=== PATIENT | female | born 1960 | race Caucasian/White ===

== ENCOUNTER 2017-10-24 10:01 | Inpatient (IN) | payer OTHER, SELFPAY ==
[2017-10-13 09:58] VITALS: BP 141/88; PULSE 63; RESP 16; TEMP 37; O2SAT 96; BMI 33.5
--- NOTE | 2017-10-13 10:24 | SDCEKG_ITS ---
Test Reason : Blood Pressure : / mmHG Vent. Rate : 062 BPM Atrial Rate : 062 BPM P-R Int : 196 ms QRS Dur : 082 ms QT Int : 406 ms P-R-T Axes : 033 013 044 degrees QTc Int : 412 ms Normal sinus rhythm Normal ECG Confirmed by RICKIE OCAMPO, RAEANN ([id number]), editorial project manager RENATO ZIEGLER ([id number]) on 10/17/2017 1:50:40 PM Referred By: Elvin Wilson Confirmed By:RAEANN DAMIAN MD
[2017-10-13 10:51] LABS: Hematocrit 39.7 % (37-47); Hemoglobin 13.1 g/dl (12.0-15.0); Mean Corpuscular Hgb 28.5 pg (27.0-32.0); Mean Corpuscular Volume 86.3 fL (81-99); Platelet Count 257 K/mm3 (150-450); RBC Distribution Width CV 13.7 % (11.6-14.6); RBC Distribution Width SD 42.6 fl (35.1-43.9); White Blood Count 5.3 K/mm3 (4.4-11.0)
[2017-10-13 10:53] LABS: Scan Indicated on CBC? Y/N NO
[2017-10-13 11:02] LABS: Anion Gap 8 (5-15); BUN 14 mg/dL (7-18); BUN/Creat Ratio 20.2 RATIO (10-20); Calcium,Total 8.9 mg/dL (8.5-10.1); Chloride 105 mmol/L (98-107); Creatinine, Serum 0.69 mg/dL (0.55-1.02); EST Glomerular Filtration Rate 93 mL/min (>60); Est Glom Filt Rate - Afr Amer 113 mL/min (>60); Estimated Creatinine Clearance 86.24 ml/min; Glucose 89 mg/dL (74-106); Potassium 4.1 mmol/L (3.5-5.1); Sodium Level 140 mmol/L (136-145)
--- NOTE | 2017-10-13 12:41 | PCM.HP.BLA ---
History and Physical DATE OF SERVICE: 10/24/2017 SCHEDULED PROCEDURE: Right total hip arthroplasty HISTORY OF PRESENT ILLNESS: This is a 57-year-old female who is been having ongoing pain in the right hip since 2011. Heart, and sore. She has a difficult time playing with her grandchildren getting up and down on the floor. Patient states she has difficult times with activities of daily living such as getting in and out of the shower or bathtub, getting dressed, doing housework, and shopping. Patient has tripped and stumbled down stairs she feels unsafe walking on unlevel ground going up and down stairs and carrying any objects. Patient states she continues to limp and has been requiring the use of crutches or a cane. She has tried conservative measures consisting of rest ice patient has tried physical therapy and home exercises with not much relief. She has been on medication consisting of etodolac for the past couple years with minimal relief. She denies previous surgery to the right hip. Heron Levin, the patient would like to proceed with a right total hip arthroplasty. Patient currently denies any chest pain, shortness of breath, fevers chills, or recent infections. REVIEW OF SYSTEMS: ROS: Const: Denies anorexia, change in appetite, fever, difficulty sleeping and weight change. CV: Denies chest pain, heart murmur, irregular heartbeat and peripheral vascular disease. Resp: Reports SOB WHEN EXERCISING, but denies asthma, cough, pneumonia, sleep apnea, tuberculosis and wheezing GI: Reports constipation and heartburn, but denies diarrhea, nausea, rectal itching, bloody stools and vomiting. : Genital:more than 3 mo. without period Reports incontinence. Musculo: Reports pain, trouble walking and weakness, but denies leg swelling. Skin: Denies Raynaud's, history of shingles and tattoo. Neuro: Reports numbness/tingling but denies ambulatory dysfunction, dizziness and tremor. Psych: Reports depression and stress, but denies anxiety, insomnia and mental illness. Abdirizak/Lymph: Reports bleeding/bruising tendency, but denies anemia and past transfusion. Reviewed and updated. PAST MEDICAL HISTORY: Advance Care Plan: No Advance Directives Effective Date: 07/14/2017 PMH: Medical Problems: Osteoarthritis, Psoriasis, Rosacea, TMJ, Hemrroids Fatty Liver Disease - NON-ALCOHOLIC Accidents: Sled Riding - (1990) LANDED ON TAILBONE Landed On Tailbone When Exercise Ball Busted - (2010) Surgical Hx: Tubal Ligation - (1991) Tubal Reversal - (1997) Hemrroid Removal - (2009) Hemrroid Fustula Surgery - (2010) Anesthesia Complications: Nausea, Vomiting Assistive Devices: Glasses, Mouth Piece For TMJ When Sleeping Reviewed and updated. 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 Personal Habits: Smoking: Patient is a former smoker.Cigarette Use: Former.Alcohol: Has consumed alcohol in the past.Drug Use: Denies Use.Enjoy Exercising: Exercises 1-3 X/Week. Reviewed and updated. VITALS: Ht: 66 Wt: 208lb Wt k.349 BMI: 33.6 BP: 112/78 Pulse: 76 Resp: 14 T: 98.3 T: 36.8C ALLERGIES: No Known Drug Allergy MEDICATIONS: Etodolac 400 mg 1 by mouth twice a day, Vitamin D3 5000 Unit 1 cap PO daily PRE-OP EXAM: General appearance:NORMAL Other: Eyes: Conjunctivae and lids: NORMAL Pupils: ERR Ears, Nose, Mouth, and Throat: NORMAL Other: Inspection of lips, teeth and gums: NORMAL Other: Neck: Examination of neck: no masses noted. Respiratory: Assessment of respiratory effort: NORMAL Other: Ausculation of lungs: clear to ausculation no wheeses, ronchi or rales. Cardiovascular: Ausculation of heart: regular rate and rhythem, no mummurs, gallops or rubs. Exam of carotid arteries: NORMAL Other: Gastrointestinal: Exam of abdomen: soft, nontender, nondistended bowel sounds present. Lymphatic: Palpation of nodes in neck: NORMAL Other: Palpation of nodes in Axillae: NORMAL Other: Neurological: see below Psychiatric: Orientation to time, place and person: NORMAL Other: Mood and affect: NORMAL Other: PHYSICAL EXAMINATION: Patient does walk with an antalgic gait. Right hip is cool to touch without erythema. Patient has increased pain with any motion of the right hip. She has limited motion with 0? of internal rotation and 5-10? of external rotation right hip. Sensations intact to light touch neurovascularly intact IMAGING STUDIES: 1. X-rays were obtained at [facility] on July 14, 2017 which shows mild progression of significant osteoarthritis of her hips. There is increased marginal osteophytes globally around the acetabulum. Joint space is narrowed to 1 mm to 1-1/2 mm. On the frog-leg lateral there appears to be possible crack in the osteophyte posteriorly. IMPRESSION: 1. Progressive right hip osteoarthritis 2. Nonalcoholic fatty liver disease 3. Psoriasis 4. Rosacea 5. Temporal mandibular joint disorder PLAN: Dr. Hayes did discuss and review with the patient all treatment options including surgical versus nonsurgical. Patient wishes to proceed with above-stated procedure. Potential risks, benefits, and complications of this procedure were discussed in detail including but not limited to , infection, nerve and blood vessel damage, persistent pain, numbness, tingling, paresthesias, blood clot, pulmonary embolism, and requirement for further surgery. The patient expressed full understanding has no further questions for the doctor. Patient does agree to proceed with the above-stated procedure and has signed the surgery consent form. Patient will undergo preoperative lab work and EKG. ___ I have re-examined the patient. There are no clinical changes since date of exam. ___ See progress notes for changes. ___ Dictated on admission Date: Time: Signature:
[2017-10-24] VITALS (13 sets, daily range): BP systolic 112–149; BP diastolic 65–91; PULSE 55–82; RESP 16–18; TEMP 35.6–37.3; O2SAT 92–100; BMI 33.5
[2017-10-24] MEDS: Acetaminophen 500 MG Tablet 1000 MG PO ×3 (10:38→22:24)
[2017-10-24] MEDS: oxyCODONE HCl Cr 10 MG Tablet PO (10:38)
[2017-10-24] MEDS: Celecoxib 200 MG Capsule 400 MG PO (10:38)
[2017-10-24] MEDS: Cefazolin 2 GM in 0.9% Normal Saline 100 ML IV (11:41)
--- NOTE | 2017-10-24 11:53 | RAD_ITS ---
STUDY: X-RAY - PELVIS AND RIGHT HIP REASON FOR EXAM: Postoperative exam of right hip. TECHNIQUE: Radiological exam, hip, unilateral, with pelvis when performed; 2 or 3 views. COMPARISON: None. FINDINGS: There is gas in the soft tissues adjacent to the right hip arthroplasty from recent surgery. There is mild enthesopathy of the bilateral iliac wings. Normal bilateral superior and inferior pubic rami. Normal pubic symphysis. Normal bilateral ischial tuberosities. There is a right hip arthroplasty without evidence of complication. RAD/Hip Min 2 Views (Portable) IMPRESSION: Right hip arthroplasty without evidence of complication. Electronically Signed: Eamon Hunt MD at 14:45 EST Tel , Service support ,
[2017-10-24] MEDS: oxyCODONE 5 MG Tablet PO (16:23)
[2017-10-24] MEDS: Lactated Ringers 1,000 ML 125 ML IV (17:37)
[2017-10-24] MEDS: Aspirin 325 MG Tablet PO (17:37)
[2017-10-24] MEDS: Cefazolin 1 GM/50 ML BAG IV (19:22)
[2017-10-24] MEDS: Etodolac 200 MG Capsule 400 MG PO (22:24)
[2017-10-24] MEDS: Senna/Docusate Sodium 1 Tablet 2 TABLET PO (22:24)
[2017-10-25] MEDS: 0.9% NaCl Peripheral Flush Adult/Peds IV (01:59)
[2017-10-25 02:00] VITALS: BP 127/54; PULSE 73; RESP 18; TEMP 36.6; O2SAT 98
[2017-10-25] MEDS: Ondansetron 4 MG/2 ML Vial IV (02:03)
[2017-10-25] MEDS: Cefazolin 1 GM/50 ML BAG IV (04:16)
[2017-10-25] MEDS: Acetaminophen 500 MG Tablet 1000 MG PO ×3 (06:05→22:15)
[2017-10-25 06:24] LABS: Hematocrit 30.7 % (37-47); Hemoglobin 9.8 g/dl (12.0-15.0); Mean Corp Hgb Conc 31.9 g/gl (32-36); Mean Corpuscular Hgb 27.7 pg (27.0-32.0); Mean Corpuscular Volume 86.7 fL (81-99); Mean Platelet Vol. 10.9 fl (6.2-12.0); Platelet Count 201 K/mm3 (150-450); RBC Distribution Width CV 13.9 % (11.6-14.6); RBC Distribution Width SD 44.7 fl (35.1-43.9); Red Blood Count 3.54 M/mm3 (4.2-5.4); White Blood Count 7.9 K/mm3 (4.4-11.0)
[2017-10-25 06:52] LABS: Scan Indicated on CBC? Y/N NO
[2017-10-25 06:53] LABS: Anion Gap 8 (5-15); BUN 9 mg/dL (7-18); BUN/Creat Ratio 14.2 RATIO (10-20); Calcium,Total 8.4 mg/dL (8.5-10.1); Chloride 101 mmol/L (98-107); Creatinine, Serum 0.64 mg/dL (0.55-1.02); EST Glomerular Filtration Rate 103 mL/min (>60); Est Glom Filt Rate - Afr Amer 125 mL/min (>60); Estimated Creatinine Clearance 92.98 ml/min; Glucose 113 mg/dL (74-106); Potassium 3.9 mmol/L (3.5-5.1); Sodium Level 135 mmol/L (136-145)
--- NOTE | 2017-10-25 07:37 | PCM.PN.ORT ---
Subjective: Patient is resting comfortably in bed during exam. No adverse events overnight. She has had some bleeding onto the postoperative dressing. It has not required any changing. The pain in the right hip is very well controlled. She currently denies chest pain, shortness of breath, dizziness, calf pain. She feels that she is very nervous going home later today. She still is going to consider it. Objective: Patient is alert and oriented ?3. No acute distress at rest. Breathing easily without respiratory distress. Inspection of right hip reveals a dressing that is 1 moderate area of bloody drainage touching one border of the dressing. negative Stacy bilaterally. Without signs of DVT. Sensation intact light touch bilateral lower extremities. Patient able to actively plantar and dorsiflex bilateral feet against resistance. Pedal pulses present +2 bilaterally. Neurovascularly intact. - Physical Exam Vital Signs Temp Pulse Resp BP Pulse Ox 98 F 73 18 127/54 H 98 10/25/17 02:00 10/25/17 02:00 10/25/17 02:00 10/25/17 02:00 10/25/17 02:00 Oxygen Delivery Method Room Air Weight: 94.347 kg Body Mass Index (BMI) 33.5 Intake and Output for Last 24 Hours 10/23/17 10/24/17 10/25/17 23:59 23:59 23:59 Intake Total 3167 / 3167 1848 / 1848 Output Total 400 / 400 900 / 900 Balance 2767 / 2767 948 / 948 Laboratory Tests Past 24 Hrs 10/25/17 10/25/17 05:42 05:42 WBC 7.9 RBC 3.54 L Hgb 9.8 L Hct 30.7 L MCV 86.7 MCH 27.7 MCHC 31.9 L RDW 13.9 RDW Differential 44.7 H Plt Count 201 MPV 10.9 Sodium 135 L Potassium 3.9 Chloride 101 Carbon Dioxide 26.0 Anion Gap 8 BUN 9 Creatinine 0.64 Estim Creat Clear Calc 92.98 Est GFR (MDRD) Af Amer 125 Est GFR (MDRD) Non-Af 103 BUN/Creatinine Ratio 14.2 Glucose 113 H Calcium 8.4 L Assessment/Plan 1. Status post right ABILIO; postop day #1 2. Continue OxyIR and Tylenol, and MS Contin for pain control 3. DVT prophylaxis; bilateral teds, SCDs and begin aspirin therapy 4. Begin PT/OT; weightbearing as tolerated right lower extremity with a walker and hip dislocation precautions. 5. Drop in hemoglobin/hematocrit, asymptomatic; without indication for transfusion continue to monitor 6. Encourage incentive spirometry 7. Continue discharge planning with case management. The plan is for discharge to home. We will see if she is having adequate pain control and moving well with physical therapy. May consider a discharge to home later today
[2017-10-25] MEDS: Aspirin 325 MG Tablet PO ×2 (08:22→17:30)
[2017-10-25] MEDS: Etodolac 200 MG Capsule 400 MG PO ×2 (08:23→17:30)
[2017-10-25] MEDS: oxyCODONE 5 MG Tablet PO ×2 (08:25→17:32)
[2017-10-25 08:30] VITALS: BP 135/75; PULSE 70; RESP 16; TEMP 37.3; O2SAT 93
[2017-10-25] MEDS: Famotidine 20 MG Tablet PO (09:40)
[2017-10-25] MEDS: Senna/Docusate Sodium 1 Tablet 2 TABLET PO ×2 (09:43→22:16)
--- NOTE | 2017-10-25 09:55 | PCM.DC.THR ---
Discharge Diet: No Restrictions Discharge Activity: May Not Drive - while taking narcotic pain medications., May not drive while taking narcotic pain medications., Use Walker May shower in (days): 2 - only if incision is dry and without drainage. Do NOT soak/submerge in tub/pool/durham/stream/hot tub. Ok to shower over mepilex dressing. Ice area for (Minutes): 20 - every hour as needed Weight Bearing Status: Weight bearing as tolerated Elevate: Operative Extremity Additional Activity Instructions:: Wear elastic stockings for 2 weeks. DO NOT use alcohol with narcotic pain medication. DO NOT make important decisions while taking narcotic medication. If you have problems with taking your medication (rash, itching, nausea, etc.) call the office at once. SEE POST OPERATIVE PINK SHEET Call your doctor if your incision/area has: Continuous Slow Oozing, Sudden Increased Bleeding, Increased Pain/ Swelling, Increased Redness, Foul Smelling Discharge, Swelling at the incision site Call your doctor if you observe: Fever of 101 or Higher, Coldness, Increased Pain, Numbness or Tingling, Change in Color, Chest pain, Calf discomfort, Uncontrolled pain Remove Dressing in (days):: 5 - OK TO REMOVE DRESSING 5 DAYS AFTER SURGERY Cleanse incision/area with: Soap & Water Additional Dressing/Incision Instructions:: SEE POST OPERATIVE PINK SHEET Allergies/Adverse Reactions: Allergies No Known Allergies Allergy (Verified 10/13/17 09:54) Medications to take at Discharge Cholecalciferol (Vitamin D3) [Vitamin D3] 5,000 unit PO DAILY 10/13/17 Acetaminophen [Tylenol] 1,000 mg PO Q8 #60 tab 10/25/17 Aspirin 325 mg PO BIDCM #30 tab 10/25/17 MorphINE [Ms Contin] 15 mg PO BID 7 Days #14 tablet 10/25/17 Oxycodone [Oxyir] 5 - 10 mg PO Q4H PRN PRN 7 Days #56 tablet 10/25/17 Senna/Docusate Sodium [Senokot-S] 2 tab PO BID #30 tab 10/25/17 The following prescriptions were given: Oxycodone [Oxyir] 5 - 10 mg PO Q4H PRN PRN 7 Days #56 tablet PRN Reason: Mod-Severe Pain (4-06/13) Acetaminophen [Tylenol] 1,000 mg PO Q8 #60 tab Aspirin 325 mg PO BIDCM #30 tab MorphINE [Ms Contin] 15 mg PO BID 7 Days #14 tablet Senna/Docusate Sodium [Senokot-S] 2 tab PO BID #30 tab Primary Care Physician: Elvin Wilson DO [Primary Care Provider] -
--- NOTE | 2017-10-25 11:12 | CASEMGMT ---
CORBY ZAVALA Face to Face with patient for initial transition planning/care coordination assessment. CORBY ZAVALA introduced self and role at [facility]. Patient sitting in chair, alert and oriented. Patient willing to participate in assessment and is able to answer all questions appropriately. Care providers, pharmacy, and demographics verified. See link attached. Patient wishes to discharge to mother's home and is setup with [facility] for outpatient therapy. Patient states that she need a walker since her mother's is inappropriate height. Patient stated she had no preference for [employer]. CORBY ZAVALA requested script for FWW. Pt states she has no further needs or concerns at this time. CM to follow for discharge planning needs that may arise. Disposition Plan: Patient to discharge home with outpatient therapy, family support, and follow-up plans in place.
[2017-10-25 14:30] VITALS: BP 143/87; PULSE 78; RESP 18; TEMP 36.7; O2SAT 98
--- NOTE | 2017-10-25 14:55 | NURSING ---
TALKED WITH ROSEANNA Myles ON THE PHONE AND PT WAS TO BE D/C BUT STILL FEEL TOO UNSTEADY TO GO HOME - OK FOR PT TO STAY ANOTHER NIGHT- PT INFORMED
[2017-10-25 20:45] VITALS: BP 135/69; PULSE 80; RESP 16; TEMP 37; O2SAT 94
[2017-10-26 02:43] VITALS: BP 122/68; PULSE 85; RESP 16; TEMP 37.2; O2SAT 98
[2017-10-26] MEDS: Acetaminophen 500 MG Tablet 1000 MG PO ×2 (06:04→13:09)
[2017-10-26 06:42] LABS: Hematocrit 30.2 % (37-47); Hemoglobin 9.7 g/dl (12.0-15.0); Mean Corp Hgb Conc 32.1 g/gl (32-36); Mean Corpuscular Hgb 28.2 pg (27.0-32.0); Mean Corpuscular Volume 87.8 fL (81-99); Mean Platelet Vol. 10.5 fl (6.2-12.0); Platelet Count 174 K/mm3 (150-450); RBC Distribution Width CV 14.3 % (11.6-14.6); RBC Distribution Width SD 45.8 fl (35.1-43.9); Red Blood Count 3.44 M/mm3 (4.2-5.4); White Blood Count 7.3 K/mm3 (4.4-11.0)
[2017-10-26 07:01] LABS: Scan Indicated on CBC? Y/N NO
[2017-10-26 07:50] VITALS: BP 129/59; PULSE 74; RESP 16; TEMP 36.9; O2SAT 94
[2017-10-26] MEDS: Famotidine 20 MG Tablet PO (07:50)
[2017-10-26] MEDS: Aspirin 325 MG Tablet PO (07:50)
[2017-10-26] MEDS: Etodolac 200 MG Capsule 400 MG PO (07:50)
[2017-10-26] MEDS: Senna/Docusate Sodium 1 Tablet 2 TABLET PO (07:50)
[2017-10-26] MEDS: oxyCODONE 5 MG Tablet PO (07:52)
[2017-10-26 14:40] VITALS: BP 129/72; PULSE 86; RESP 18; TEMP 37.2; O2SAT 98
--- NOTE | 2017-10-26 15:07 | PCM.PN.ORT ---
Subjective: Patient is resting comfortably in bed during exam. No adverse events overnight. Pain in the right hip has been very well controlled. She did not feel ready for discharge to home yesterday because she will be staying with her elderly mother. Her concern was for falling. She did well with physical therapy today. She feels much better about being discharged to home today. She denies chest pain, shortness of breath, dizziness, calf pain. Doing well overall. Objective: Patient is alert and oriented ?3. No acute distress at rest. Breathing easily without respiratory distress. Inspection of right hip reveals a new 8 inch Mepilex dressing. It is without any bloody drainage. Negative Stacy bilaterally. Without signs of DVT. Sensation intact light touch bilateral lower extremities. Patient able to actively plantar and dorsiflex bilateral feet against resistance. Pedal pulses present and equal bilaterally. Neurovascularly intact. - Physical Exam Vital Signs Temp Pulse Resp BP Pulse Ox 98.5 F 74 16 129/59 H 94 10/26/17 07:50 10/26/17 07:50 10/26/17 07:50 10/26/17 07:50 10/26/17 07:50 Oxygen Delivery Method Room Air Weight: 94.3 kg Body Mass Index (BMI) 33.5 Intake and Output for Last 24 Hours 10/24/17 10/25/17 10/26/17 23:59 23:59 23:59 Intake Total 3167 / 3167 3148 / 3148 1400 / 1400 Output Total 400 / 400 1100 / 1100 Balance 2767 / 2767 2048 / 2048 1400 / 1400 Laboratory Tests Past 24 Hrs 10/26/17 05:36 WBC 7.3 RBC 3.44 L Hgb 9.7 L Hct 30.2 L MCV 87.8 MCH 28.2 MCHC 32.1 RDW 14.3 RDW Differential 45.8 H Plt Count 174 MPV 10.5 Assessment/Plan 1. Status post right ABILIO; postop day #2 2. Continue OxyIR and Tylenol, and MS Contin for pain control 3. DVT prophylaxis; bilateral teds, SCDs and a new aspirin therapy 4. 10 units PT/OT; weightbearing as tolerated right lower extremity with a walker and hip dislocation precautions. 5. Drop in hemoglobin/hematocrit, asymptomatic; without indication for transfusion continue to monitor 6. Encourage incentive spirometry 7. Orthopedically stable. Okay for discharge to home today. Case and findings were discussed and reviewed with Dr. Heron Levin. A new 10 inch occlusive Mepilex dressing was applied to the surgical site.
== END 2017-10-26 15:35 | disposition home or self-care (01) | DRG 470 ==
LOC: ACINP 10:02 → MS3 12:30
PROVIDERS: Admitting Provider Orthopaedic Surgery; Family Provider Student in an Organized Health Care Education/Training Program; PCP Student in an Organized Health Care Education/Training Program; Visit Provider Orthopaedic Surgery
PROC: 0SR90JZ Replacement of Right Hip Joint with Synthetic Substitute, Open Approach (ICD-10-PCS; CPT 27130; principal; 2017-10-24 12:40)
DX: M16.11 Unilateral primary osteoarthritis, right hip (principal); R71.0 Precipitous drop in hematocrit; K76.0 Fatty (change of) liver, not elsewhere classified; Z87.891 Personal history of nicotine dependence; L40.9 Psoriasis, unspecified; L71.9 Rosacea, unspecified; M26.609 Unspecified temporomandibular joint disorder, unspecified side
CPT/HCPCS: 36415; 73502; 80048; 85027; 87081; 93005; 97110; 97116; 97162; 97166; 97530; 97535; J7120; A4216; J2405

== ENCOUNTER → 2018-12-04 07:51 | Outpatient (CLI) | payer OTHER, SELFPAY ==
[2017-10-24 15:58] VITALS: BMI 33.5
--- NOTE | 2018-12-04 10:26 | NEURO ---
NCS and/or EMG Patient Report Ordering Doctor: Marguerite Bryan DATE OF SERVICE: 12/04/18 Lateral lower extremity sensory and motor nerve conduction study as well as bilateral lower extremity EMG performed on this 58-year-old female who has had paresthesias and numbness in her feet for several years. Her only health history is nonalcoholic steatohepatitis. Is not diabetic and does not consume alcohol. Approximately 1 year ago she had right hip replacement surgery and since that time has also had decreased sensation in the anterior aspect of her right lower leg. Denies weakness. Bilateral lower extremity sensory and motor nerve conduction study is performed. There is borderline response from the left tibial H reflex and low amplitude from the right tibial H reflex response. The sural sensory responses bilaterally are preserved and the common peroneal as well as tibial motor distal latencies, amplitudes and conduction velocities are preserved. F-wave latencies from the tibial and common peroneal nerves bilaterally are normal. Bilateral lower extremity needle electromyography is performed. Muscles evaluated included the extensor digitorum brevis, abductor houses, medial gastrocnemius, anterior tibialis, vastus medialis and vastus lateralis muscles bilaterally. All muscles demonstrated normal insertional activity with absence of pathologic spontaneous activity. Motor unit potential recruitment pattern and amplitude is normal in all muscles tested. Impression: Abnormal electrophysiologic study of the lower extremities with mild reduction in H reflexes of unclear clinical significance however given the entire clinical scenario the patient may have a small fiber neuropathy. Further evaluation could include B12 levels, serum protein electrophoresis, and hepatic studies. The patient's history of nonalcoholic cirrhosis does raise the question of neuropathy due to liver derangements.
--- NOTE | 2018-12-04 10:30 | NEURO_ITS ---
NCS and/or EMG Patient Report Ordering Doctor: Marguerite Bryan DATE OF SERVICE: 12/04/18 Lateral lower extremity sensory and motor nerve conduction study as well as bilateral lower extremity EMG performed on this 58-year-old female who has had paresthesias and numbness in her feet for several years. Her only health histor y is nonalcoholic steatohepatitis. Is not diabetic and does not consume alcohol. Approximately 1 year ago she had right hip replacement surgery and since that time has also had decreased sensation in the anterior aspect of her right lower leg. Denies weakness. Bilateral lower extremity sensory and motor nerve conduction study is performed. There is borderline response from the left tibial H reflex and low amplitude from the right tibial H reflex response. The sural sensory responses bilaterally are preserved and the common peroneal as well as tibial motor distal latencies, amplitudes and conduction velocities are preserved. F-wave latencies from the tibial and common peroneal nerves bilaterally are normal. Bilateral lower extremity needle electromyography is performed. Muscles thomas luated included the extensor digitorum brevis, abductor houses, medial gastrocnemius, anterior tibialis, vastus medialis and vastus lateralis muscles bilaterally. All muscles demonstrated normal insertional activity with absence of pathologic spontaneous activity. Motor unit potential recruitment pattern and amplitude is normal in all muscles tested. Impression: Abnormal electrophysiologic study of the lower extremities with mild reduction in H reflexes of unclear clinical significance however given the entire clinical scenario the patient may have a small fiber neuropathy. Further evaluation could include B12 levels, serum protein electrophoresis, and hepatic studies. The patient's history of nonalcoholic cirrhosis does raise the question of neuropathy due to liver derangements.
== END ==
PROVIDERS: Family Provider Student in an Organized Health Care Education/Training Program; PCP Student in an Organized Health Care Education/Training Program; Referring Provider Podiatrist Foot & Ankle Surgery; Visit Provider Podiatrist Foot & Ankle Surgery
DX: R20.2 Paresthesia of skin (principal)
CPT/HCPCS: 95886; 95910

== ENCOUNTER 2019-08-31 12:04 | Emergency (ER) | payer OTHER, SELFPAY ==
[2017-10-24 15:58] VITALS: BMI 33.5
[2019-08-31 12:05] VITALS: BP 176/82; PULSE 103; RESP 18; TEMP 36.6; O2SAT 96; BMI 36.1
--- NOTE | 2019-08-31 12:24 | CT_ITS ---
STUDY: CT ABDOMEN AND PELVIS WITHOUT CONTRAST REASON FOR EXAM: Female, 59 years old. RT SIDED ABD PAIN RADIATION DOSAGE (If Supplied By Facility): CTDIvol = ( 26.04 ) mGy, DLP = ( 1265.30 ) mGycm TECHNIQUE: Transaxial images were obtained from the dome of the diaphragm to the symphysis pubis without oral contrast, and without intravenous contrast. Sagittal and coronal images were reconstructed. Individualized dose optimization techniques were used for this CT. COMPARISON: None. FINDINGS: Minimal fibrotic scarring in the right lung base. The visualized portions of the heart are within normal limits. Normal liver. Normal gallbladder and extrahepatic biliary system. Normal spleen. Normal pancreas. Normal bilateral adrenal glands. Tiny 2 mm calcification of the right kidney as seen on image 50. No hydronephrosis or ureteric calcifications. Normal visualized stomach. Normal small intestine. Normal colon. The appendix is visualized and appears normal. Normal abdominal aorta. Normal inferior vena cava. Normal retroperitoneum. Poorly distended and evaluated urinary bladder. There are vascular phleboliths of the pelvis. Right hip replacement causes moderate spray artifact in the pelvis. No destructive bony process. There are degenerative changes of the lumbar spine. CT/Abdomen/Pelvis without Cont IMPRESSION: 1. Nonobstructing punctate right renal calculus. No hydronephrosis. Electronically Signed: Jn Vides MD ([place]) at 13:16 EST , Service support ,
--- NOTE | 2019-08-31 12:25 | US_ITS ---
STUDY: ABDOMINAL ULTRASOUND - RIGHT UPPER QUADRANT REASON FOR VISIT: Female, 59 years old RIGHT ABD PAIN X 2 DAYS -- HX OF FATTY LIVER -- CT ALSO BEING DONE TODAY TECHNIQUE: Ultrasound evaluation of the right upper quadrant was performed with real-time and static ceballos-scale imaging. TECHNICAL QUALITY: Adequate. COMPARISON: None. FINDINGS: Liver: The liver measures 16.6 cm. There is increased echogenicity of the liver. The bile ducts are within normal limits. There is hepatic color flow. The direction of portal flow is hepatopetal. There is no demonstrated mass lesion. Gallbladder: Normal distended gallbladder. The gallbladder wall measures 2.6 mm. There is a negative sonographic Vivas''s sign. There is no pericholecystic fluid. There are no gallstones. Common Bile Duct (C.B.D.): The common bile duct measures 4.0 mm. Pancreas: There is normal echogenicity of the visualized pancreas. There is no demonstrated pancreatic mass or cyst. Right Kidney: Normal size of the right kidney. The right kidney measures 10.3 x 6.1 x 4.9 cm. Normal renal cortex. The right cortex measures 1.3 cm. There is no demonstrated renal mass or cyst. There is no right hydronephrosis. US/Abdomen Limited IMPRESSION: 1. No cholelithiasis or biliary obstruction. 2. Mildly increased hepatic echogenicity suggests hepatic steatosis. Electronically Signed: Jn Vides MD ([place]) at 13:53 EST , Service support ,
--- NOTE | 2019-08-31 12:26 | ED.VISSUMM ---
- ER Visit Summary Date of Service: 08/31/19 Chief Complaint: Flank pain History of Present Illness: The patient is a 59 F who presents with right flank pain that began last night. Patient states her pain is sharp. Patient states the pain is over the right flank and right upper quadrant. Patient states the pain radiates to her right shoulder. Patient denies any radiation to her groin. Patient states her pain improves with certain positions and is worse with laying flat. Patient denies any nausea or vomiting. Patient denies any diarrhea, melena, or hematochezia. Patient denies any dysuria or hematuria. Physical Examination: Vital signs are stable. Patient is afebrile. Patient is in no acute distress. Oral mucosa is pink and moist. Neck is supple. Trachea is midline. There is no JVD. Heart was regular rate and rhythm. Lungs are clear and equal bilaterally. Abdomen is soft. Bowel sounds are normal. There is some mild right CVA tenderness. There is no rebound or guarding noted. Cranial nerves II through XII are intact. There are no focal motor or sensory deficits noted. Test Results: CBC, comprehensive metabolic profile, and urinalysis were obtained were all within normal limits. Ultrasound of the gallbladder was obtained. There is no cholelithiasis or obstruction. CT scan of the abdomen and pelvis was obtained. There is a small punctate calculus in the right kidney. There is no obstruction. There is no other acute abnormality noted. Emergency Department Course and Treatment: Patient was feeling better on reevaluation. Patient was instructed to avoid fatty foods and fried foods. Patient was instructed to follow-up with her primary care physician in 5 to 7 days. Patient understood and was agreeable with the plan. All questions were answered. Disposition: Discharge home Impression: Right upper quadrant abdominal pain This note was generated with [employer] dictation software. It may contain incorrect words, spelling, and punctuation that were not noted in review of the chart prior to signing ED Disposition - Plan for ED Patient: Disposition: Home or Assisted Living Diagnosis: Right upper quadrant abdominal pain of unknown etiology Instructions: ABDOMINAL PAIN, Unknown Cause, (Female) Referrals: Elvin Wilson DO [Primary Care Provider] - 5-7 Days
[2019-08-31] MEDS: 0.9% Normal Saline 1,000 ML 1000 ML IV (12:39)
[2019-08-31 12:44] LABS: Absolute Lymphocyte Count 1.83 X10^3/uL (0.83-4.51); Absolute Neutrophil Count 4.7 X10^3/uL (2.0-7.7); Basophil# 0.02 X10^3/uL; Basophil% 0.3 % (0-1); Eosinophil# 0.09 X10^3/uL; Eosinophils% 1.2 % (0-5); Hematocrit 39.4 % (37-47); Hemoglobin 12.8 g/dL (12.0-15.0); Lymphocyte # 1.83 X10^3/ul (4.0); Lymphocyte % 24.7 % (19-41); Mean Corp Hgb Conc 32.5 g/dL (32-36); Mean Corpuscular Hgb 28.3 pg (27.0-32.0); Mean Corpuscular Volume 87.2 fL (81-99); Monocyte# 0.75 X10^3/uL; Monocyte% 10.1 % (0-10); NRBC Flagged by Analyzer 0 % (0-5); Neutrophil % 63.4 % (47-70); Platelet Count 287 K/mm3 (150-450); RBC Distribution Width CV 13.9 % (11.6-14.6); RBC Distribution Width SD 44.5 fl (35.1-43.9); Red Blood Count 4.52 M/mm3 (4.2-5.4); White Blood Count 7.4 K/mm3 (4.4-11.0)
[2019-08-31 12:51] LABS: Bacteria 0 SEEN /hpf (None Seen); Mucous, Urine 0 SEEN /hpf (<or=2+); Red Blood Cells-Urine 0 SEEN /hpf (0-5); White Blood Cells 0 SEEN /hpf (0-5)
[2019-08-31 12:52] LABS: Color, Urine Yellow (Yellow); Glucose, Dipstick Normal (Normal); Ketone-Dipstick Negative (Negative); Leukocyte Esterase-Dipstick Negative /ul (Negative); Nitrite-Dipstick Negative (Negative); Occult Blood-Urine Negative /ul (Negative); Protein-Dipstick Negative (Negative); Specific Gravity, Urine 1.025 (1.002-1.030); Urine Bilirubin Dipstick Negative (Negative); Urine Clarity Sl. Cloudy (Clear); Urine Urobilinogen Normal (Normal)
[2019-08-31 12:56] LABS: ALB/GLOB Ratio 1.1 RATIO (0.9-2.4); AST(SGOT) 15 U/L (15-37); Alanine Aminotransfer ALT/SGPT 32 U/L (13-56); Alkaline Phosphatase 82 U/L (45-117); Anion Gap 7 (5-15); BUN 17 mg/dL (7-18); BUN/Creat Ratio 22.4 RATIO (10-20); Calcium,Total 9.4 mg/dL (8.5-10.1); Chloride 105 mmol/L (98-107); Creatinine, Serum 0.76 mg/dL (0.55-1.02); EST Glomerular Filtration Rate 84 mL/min (>60); Est Glom Filt Rate - Afr Amer 101 mL/min (>60); Estimated Creatinine Clearance 76.45 ml/min; Globulin 3.8 g/dL (2.2-4.2); Glucose 144 mg/dL (74-106); Lipase 140 U/L (73-393); Potassium 3.7 mmol/L (3.5-5.1); Protein, Total 7.8 g/dL (6.4-8.2); Sodium Level 138 mmol/L (136-145)
[2019-08-31 12:59] LABS: Squamous Epithelial Cells - UA 0-5 SEEN /hpf (5-10)
[2019-08-31 14:14] VITALS: RESP 14
[2019-08-31 15:30] VITALS: BP 148/77; PULSE 81; O2SAT 95
== END 2019-08-31 15:35 | disposition home or self-care (01) ==
PROVIDERS: Emergency Provider Emergency Medicine; Family Provider Student in an Organized Health Care Education/Training Program; PCP Student in an Organized Health Care Education/Training Program
DX: R10.11 Right upper quadrant pain (principal); N20.0 Calculus of kidney; E66.9 Obesity, unspecified
CPT/HCPCS: 74176; 76705; 80053; 81001; 83690; 85025; 96360; 96361; 99283; J7030; A4216

== ENCOUNTER 2021-12-13 16:24 | Outpatient (CLI) | payer OTHER, SELFPAY ==
--- NOTE | 2021-12-13 | FLU_PTH ---
PATIENT: HIPOLITO FERRARA LOC: [facility] U#:[id number] AGE/SX: 61/F ROOM: RE12/13/[address]: Dr. Karla Hernandez MD : [id number] BED: DIS: 12/13/2021 SPEC #: [id number] RECD: 12/13/21 16:23 STATUS: ROHINI RECruz #: [id number] LAYLA: 12/13/21 00:[address]: Karla Hernandez DEPT: CYTOLOGY RECD BY: Bonita Moreno ENTERED: 12/14/21 09:57 SP TYPE: Fluid OTHR DR: Dr. Elvin Wilson DO Tissues: A - Thyroid gland, NOS B - Thyroid gland, NOS Procedures: Special Stain Group II Surgery Specimen Level IV Cytospin Fluid Cytology Other HEADER OPERATION: Ultrasound-guided fine needle aspiration right thyroid and isthmus PRE-OP DIAGNOSIS: Abnormal ultrasound TISSUE SUBMITTED: A - FNA right thyroid nodule fluid, B - FNA right thyroid nodule slides x8 DIAGNOSIS CYTOLOGY A. Right thyroid nodule fluid, ultrasound-guided fine needle aspiration (cytospin and cell block): Rare benign follicular cells and macrophages noted. B. Right thyroid nodule, ultrasound-guided fine needle aspiration (smears): Consistent with benign follicular nodule. Adequate for evaluation. TEODORO:dior 12/15/2021 COMMENT Correlation with clinical, radiologic findings and appropriate follow up are necessary. CYTOLOGY STUDY Slides are reviewed. CYTOLOGY GROSS A - Received is 15 ml of pink cloudy fluid labeled with the patient's name and and designated per the requisition as right thyroid. Submitted for cytology preparation including cell block. B - Received are eight smears labeled with the patient's name and designated per the requisition as right thyroid. Submitted for staining. / dior 12/14/2021 TC:5 CPT: 06004, 20237 x2
== END 2021-12-13 23:59 | disposition home or self-care (01) ==
PROVIDERS: PCP Student in an Organized Health Care Education/Training Program; Referring Provider Surgery; Visit Provider Surgery
DX: R93.89 Abnormal findings on diagnostic imaging of other specified body structures (principal)
CPT/HCPCS: 88108; 88161; 88305; 88313

== ENCOUNTER 2023-09-03 01:58 | Emergency (ER) | payer OTHER, SELFPAY ==
[2023-09-03 02:03] VITALS: BP 149/83; PULSE 68; RESP 16; TEMP 37.2; O2SAT 97; BMI 40.4
--- NOTE | 2023-09-03 02:07 | EDS_ITS ---
HPI History of Present Illness Chief Complaint: Hypertension [facility] Medical History (Updated 09/03/23 @ 02:02 by Barbie Layton) HTN (hypertension) Hypothyroid Implantable loop recorder present Home Medications levothyroxine 50 mcg tablet 50 mcg PO DAILY 09/03/23 [History Last Taken Unknown] metoprolol succinate 25 mg tablet,extended release 24 hr 25 mg PO DAILY 09/03/23 [History Last Taken Unknown] Allergy/AdvReac Type Severity Reaction Status Date / Time chlorhexidine Allergy Other Verified 09/03/23 01:59 iodine Allergy Other Verified 09/03/23 01:59 Surgical History (Updated 09/03/23 @ 02:02 by Barbie Layton) History of hip replacement Social History Smoking Status: Former smoker EXAM Physical Exam Const Vital Signs: 09/03/23 02:03 09/03/23 02:06 Temperature 99.0 F Temperature Source Temporal Pulse Rate 68 Respiratory Rate 16 Respiratory Effort Normal Blood Pressure 149/83 H Blood Pressure Mean 105 Pulse Ox 97 MDM MDM MDM Narrative Medical decision making narrative: HISTORY OF PRESENT ILLNESS: 63-year-old female presents with concern for abnormal vital signs at home. Noted temperature was low at home which prompted her to become nervous and check her blood pressure. Blood pressure 191/98. Denies headache, shortness of breath, chest pain, focal weakness. REVIEW OF SYSTEMS: Pertinent positives: Elevated blood pressure, anxiety Pertinent negatives: Chest pain, shortness of breath, focal weakness, numbness, tingling PHYSICAL EXAM: Nursing triage notes reviewed, Vital signs reviewed Constitutional: please see mdm HENT: MMM Eyes: Pupils equal round and reactive to light, Extraocular muscles intact Neck: No stridor, no JVD, full neck ROM Lungs: Clear to auscultation, No wheezing or rales. No increased work of breathing, no conversational dyspnea, no accessory muscle use, no nasal flaring. No respiratory distress noted Heart: Regular rate and rhythm, No murmurs, No rubs and No gallops, 2+ distal pulses (radial, femoral, posterior tibial) in all extremities Abdomen: Soft, there is no tenderness, rigidity, rebound or guarding, no obvious peritoneal signs, no palpable pulsatile abdominal masses, no auscultated abdominal bruit : No CVAT Extremities: No edema Neuro: No focal neurological deficits, cranial nerves II through XII intact, 5/5 strength in all extremities. Intact sensation to light touch in all extremities, 2+ reflexes bilateral patella tendons. Normal gait. No ataxia. Skin: No rash or lesions noted MEDICAL DECISION MAKING: Chief Complaint: Elevated blood pressure External records reviewed: Medications reviewed reviewed: Currently on levothyroxine metoprolol Factors affecting care: Hypertension, hypothyroidism Social determinants of health: Denies illicit drug use History obtained from others: none Consults: none MDM Narrative: Patient was initially hemodynamically stable, afebrile, nontoxic-appearing. No focal neurologic deficits on exam. No report of chest pain, headache, visual changes or signs of endorgan damage. No indication for further evaluation and workup labs, images at this time. Patient was told to go home and take her home medicine follow-up with primary care physician for further evaluation. Patient requesting COVID testing. She will test for COVID and discharge. She is not meet criteria for Paxlovid or Tamiflu at this time. The patient and/or family, caregivers express understanding. The patient and/or family, caregivers agrees with the plan. Shared decision making: I will have a discussion with the patient and or visitors regarding risk/benefits of further testing or admission. They will be made aware of of the risk/benefits inherent in this decision they will be given the opportunity to voice understanding. Total critical care time today provided was at least 0 minutes. This excludes separately billable procedures. Critical care time (if documented) is secondary to the patient having high probability of clinically significant/life threatening deterioration in the patient's condition which required my urgent intervention. Impression: 1. Elevated blood pressure Dispo: Discharge Discharge Plan Triage Chief Complaint: Hypertension ED Provider: Kleber Gregory Dx/Rx/DC Orders Instructions: ED High Blood Pressure Hypertension Prescriptions: No Action levothyroxine 50 mcg tablet 50 mcg PO DAILY Patient Comments: take 1 tablet by mouth every morning ON AN EMPTY STOMACH metoprolol succinate 25 mg tablet extended release 24 hr 25 mg PO DAILY Patient Comments: take 1 tablet by mouth once daily Primary Care Provider: Elvin Wilson Referrals: Elvin Wilson DO [Primary Care Provider] - Activity Restrictions/Additional Instructions: Thank you for trusting us with your care today! Please take Tylenol (2 pills, 650 mg), ibuprofen (2 pills, 400 mg) every 6 hours as needed for pain and fever control. Please take your blood pressure medicine as prescribed. Please return to the emergency department if your symptoms change or worsen. Specifically develop elevated blood pressure in the setting of headache, visual changes, loss of sensation, loss of movement, numbness, weakness, chest pain, shortness of breath, leg swelling. Please follow with your primary care physician for further outpatient evaluation and management. Disposition Disposition: Home, Self Care Discharge Date/Time: 09/03/23 02:59
--- OUTSIDE RECORDS SUMMARY | 2023-09-03 02:27 | XMS RPT_ITS | CCD ---
Author Name Unknown Address [address] [place] [address] Organization [facility] Care Team Providers Care Jukebox Routeman Name Role Phone Wilson DO Elvin L Primary Care Provider [phone] CB, ISIDRO Attending Unavailable KARO LYLES Primary Care Unavailable Karo Jose Primary Care Provider Wilson DO Elivn L Primary Care Provider WILSON, ELVIN L Referring Unavailable WILSON, ELVIN L Primary Care Unavailable WILSON, ELVIN L Referring Unavailable WILSON, ELVIN L Primary Care Unavailable WILSON, ELVIN L Primary Care Unavailable WILSON, ELVIN L Primary Care Unavailable WILSON, ELVIN L Primary Care Unavailable ROD METZ Attending Unavailable WILSON, ELVIN L Primary Care Unavailable WILSON, ELVIN L Primary Care Unavailable WILSON, ELVIN L Attending Unavailable WILSON, ELVIN L Primary Care Unavailable WILSON, ELVIN L Referring Unavailable WILSON, ELVIN L Primary Care Unavailable WILSON, ELVIN L Primary Care Unavailable WILSON, ELVIN L Attending Unavailable WILSON, ELVIN L Primary Care Unavailable WILSON, ELVIN L Referring Unavailable VALDEZ, CHRISSIE Referring Unavailable WILSON, ELVIN L Primary Care Unavailable ORIANA MARTINEZ Attending Unavailable WILSON, ELVIN L Primary Care Unavailable WILSON, ELVIN L Primary Care Unavailable JANET SMITH Attending Unavailable WILSON, ELVIN L Primary Care Unavailable WILSON, ELVIN L Referring Unavailable WILSON, ELVIN L Primary Care Unavailable WILSON, ELVIN L Referring Unavailable WILSON, ELVIN L Primary Care Unavailable VALDEZ, CHRISSIE Attending Unavailable VALDEZ, CHRISSIE Referring Unavailable WILSON, ELVIN L Primary Care Unavailable VALDEZ, CHRISSIE Referring Unavailable WILSON, ELVIN L Primary Care Unavailable WILSON, ELVIN L Primary Care Unavailable WILSON, ELVIN L Attending Unavailable ROD METZ Attending Unavailable ROD METZ Admitting Unavailable ELVIN WILSON Primary Care Unavailable Allergies Allergy Classification Reported Allergen(s) Allergy Type Date of Onset Reaction(s) Facility (20 sources) Chlorhexidine; Translations: [CHLORHEXIDINE GLUCONATE] Drug Allergy 06-13-2019 Rash [facility] Work Phone: (20 sources) Povidone-Iodine; Translations: [POVIDONE-IODINE] Drug Allergy 06-13-2019 Intolerance [facility] Work Phone: (1 source) Chlorhexidine Drug Allergy 06-13-2019 Rash [facility] (1 source) Iodine Drug Allergy 08-31-2019 [facility] Medications Current Medications Medication Drug Class(es) Dates Sig (Normalized) Sig (Original) amoxicillin 875 mg / clavulanate 125 mg oral tablet (1 source) Penicillin-class Antibacterial Start: 01-14-2023 End: 01-19-2023 take 1 tablet by mouth twice daily amoxicillin-clavulan ic acid (AUGMENTIN) 875-125 mg per tablet Indications: Rhinosinusitis Take 1 tablet by mouth twice daily for 5 days. 10 tablet 0 01/14/2023 01/19/2023 Active Completed/Discontinued Medications Medication Drug Class(es) Dates Sig (Normalized) Sig (Original) buPROPion hydrochloride 75 mg oral tablet (1 source) Aminoketone Start: 08-15-2019 End: 11-26-2021 take 1 tablet by mouth twice daily buPROPion (WELLBUTRIN) 75 mg tablet Indications: Fatigue, unspecified type , Obesity, Class II, BMI 35-39.9 Take 1 tablet by mouth twice daily. 180 tablet 3 08/15/2019 11/26/2021 Discontinued (Course of therapy completed) Problems Active Problems Problem Classification Problem Date Documented Da te Episodic/Chronic Conduction disorders (3 sources) Second degree atrioventricular block; Translations: [Atrioventricular block, second degree] Onset: 3 07-24-2023 Chronic Disorders of lipid metabolism (20 sources) Dyslipidemia; Translations: [Hyperlipidemia, unspecified] Onset: 9 01-07-2019 Chronic Esophageal disorders (20 sources) Gastroesophageal reflux disease; Translations: [Gastro-esophageal reflux disease without esophagitis] Onset: 5 05-23-2005 Chronic Essential hypertension (20 sources) Essential hypertension; Translations: [Essential (primary) hypertension] Onset: 2 10-11-2021 Chronic Heart valve disorders (10 sources) Tricuspid valve regurgitation; Translations: [Rheumatic tricuspid insufficiency] Onset: 3 05-12-2023 Chronic Nutritional deficiencies (20 sources) Vitamin D deficiency; Translations: [Vitamin D deficiency, unspecified] Onset: 8 08-20-2018 Chronic Osteoarthritis (20 sources) Arthritis of hip; Translations: [Unilateral primary osteoarthritis, unspecified hip] Onset: 4 10-24-2013 Chronic Other and unspecified benign neoplasm (1 source) Multiple benign melanocytic nevi ; Translations: [Melanocytic nevi, unspecified] Episodic Other and unspecified benign neoplasm (1 source) Senile angioma; Translations: [Hemangioma of skin and subcutaneous tissue] Episodic Other circulatory disease (1 source) Feeling of lump in throat; Translations: [Other specified symptoms and signs involving the circulatory and respiratory systems] Episodic Other connective tissue disease (20 sources) History of total replacement of right hip joint; Translations: [Presence of right artificial hip joint] Onset: 8 01-23-2018 Chronic Other connective tissue disease (2 sources) Dupuytren's contracture; Translations: [Palmar fascial fibromatosis [Dupuytren]] Episodic Other connective tissue disease (2 sources) Trigger finger, unspecified index finger; Translations: [Trigger finger, unspecified index finger] Onset: 3 Episodic Other connective tissue disease (1 source) Dupuytren contracture of left palm; Translations: [Palmar fascial fibromatosis [Dupuytren]] Episodic Other connective tissue disease (1 source) Triggering of digit; Translations: [Trigger finger, unspecified index finger] Episodic Other endocrine disorders (20 sources) Hypoglycemia; Translations: [Hypoglycemia, unspecified] Onset: 8 08-20-2018 Chronic Other gastrointestinal disorders (1 source) Difficulty swallowing pills; Translations: [Other specified symptoms and signs involving the digestive system and abdomen] Episodic Other gastrointestinal disorders (1 source) Altered bowel function; Translations: [Change in bowel habit] Episodic Other liver diseases (10 sources) Non-alcoholic fatty liver; Translations: [Fatty (change of) liver, not elsewhere classified] Onset: 9 08-21-2019 Chronic Other liver diseases (20 sources) Fatty (change of) liver, not elsewhere classified; Translations: [Other chronic nonalcoholic liver disease] Onset: 9 08-21-2019 Chronic Other nervous system disorders (20 sources) Small fiber neuropathy; Translations: [Polyneuropathy, unspecified] Onset: 9 01-07-2019 Chronic Other nervous system disorders (1 source) Tremor; Translations: [Tremor, unspecified] Episodic Other nutritional; endocrine; and metabolic disorders (20 sources) Obese class I; Translations: [Obesity, unspecified] Onset: 9 Chronic Other nutritional; endocrine; and metabolic disorders (20 sources) Body mass index 30+ - obesity; Translations: [Body mass index (BMI) 32.0-32.9, adult] Onset: 6 10-09-2015 Chronic Other nutritional; endocrine; and metabolic disorders (2 sources) Obesity, unspecified; Translations: [Obesity, Class II, BMI 35-39.9] Onset: 2 Chronic Other screening for suspected conditions (not mental disorders or infectious disease) (2 sources) Finding of thyroid gland; Translations: [Abnormal findings on diagnostic imaging of other specified body structures] Chronic Other skin disorders (1 source) Seborrheic keratosis; Translations: [Other seborrheic keratosis] Episodic Other skin disorders (1 source) Lentiginosis; Translations: [Other melanin hyperpigmentation] Episodic Other upper respiratory disease (20 sources) Chronic rhinitis; Translations: [Chronic rhinitis] Onset: 7 11-06-2006 Chronic Other upper respiratory disease (1 source) Chronic rhinitis; Translations: [Unspecified sinusitis (chronic)] Chronic Other upper respiratory infections (4 sources) Sore throat symptom; Translations: [Acute pharyngitis, unspecified] Episodic Thyroid disorders (12 sources) Goiter; Translations: [Nontoxic goiter, unspecified] Onset: 3 Chronic Past or Other Problems Problem Classification Problem Date Documented Da te Episodic/Chronic Administrative/social admission (1 source) Dietary counseling and surveillance; Translations: [Dietary counseling] Onset: 3 Episodic Anal and rectal conditions (20 sources) Anal pain; Translations: [Other specified diseases of anus and rectum] Onset: 0 03-12-2010 Episodic Cardiac dysrhythmias (20 sources) Palpitations; Translations: [Palpitations] Onset: 9 01-07-2019 Episodic Conditions associated with dizziness or vertigo (20 sources) Dizziness; Translations: [Dizziness and giddiness] Onset: 8 08-20-2018 Episodic Diabetes mellitus without complication (20 sources) Impaired fasting glycemia; Translations: [Impaired fasting glucose] Onset: 2 10-11-2021 Episodic Disorders of teeth and jaw (20 sources) Temporomandibular joint disorder; Translations: [Unspecified temporomandibular joint disorder, unspecified side] Onset: 5 05-23-2005 Episodic Headache; including migraine (20 sources) Headache; Translations: [Headache, unspecified headache type] Onset: 1 06-16-2021 Episodic Hemorrhoids (20 sources) External hemorrhoids; Translations: [Residual hemorrhoidal skin tags] Onset: 0 03-05-2010 Episodic Immunizations and screening for infectious disease (3 sources) Patient encounter status; Translations: [Encounter for immunization] Onset: 3 Episodic Malaise and fatigue (20 sources) Fatigue; Translations: [Other fatigue] Onset: 8 08-20-2018 Episodic Nonspecific chest pain (11 sources) Chest pain; Translations: [Other chest pain] Onset: 3 05-12-2023 Episodic Other and unspecified benign neoplasm (20 sources) Benign neoplasm of rectum and anal canal; Translations: [Benign neoplasm of rectum] Onset: 3 10-26-2012 Episodic Other connective tissue disease (20 sources) Muscle spasm of cervical muscle of neck; Translations: [Other muscle spasm] Onset: 1 06-16-2021 Episodic Other connective tissue disease (3 sources) Palmar fascial fibromatosis [Dupuytren]; Translations: [Palmar fascial fibromatosis (dupuytren)] Onset: 3 Episodic Other gastrointestinal disorders (1 source) Change in bowel habit; Translations: [Bowel habit changes] Onset: 3 Episodic Other lower respiratory disease (9 sources) Dyspnea on exertion; Translations: [Other forms of dyspnea] Onset: 3 05-17-2023 Episodic Other lower respiratory disease (1 source) Other forms of dyspnea; Translations: [BORDEN (dyspnea on exertion)] Onset: 3 Episodic Other nervous system disorders (1 source) Tremor, unspecified; Translations: [Tremor] Onset: 3 Episodic Other screening for suspected conditions (not mental disorders or infectious disease) (3 sources) Mammography abnormal; Translations: [Other abnormal and inconclusive findings on diagnostic imaging of breast] Onset: 3 Episodic Other upper respiratory disease (20 sources) Nasal congestion; Translations: [Nasal congestion] Onset: 1 06-16-2021 Episodic Residual codes; unclassified (20 sources) Family history of malignant neoplasm of gastrointestinal tract; Translations: [Family history of malignant neoplasm of digestive organs] Onset: 7 11-06-2006 Episodic Residual codes; unclassified (20 sources) Postmenopausal state; Translations: [Asymptomatic menopausal state] Onset: 3 10-09-2012 Episodic Spondylosis; intervertebral disc disorders; other back problems (20 sources) Neck pain; Translations: [Cervicalgia] Onset: 1 06-16-2021 Episodic Results Test Name Value Interpretation Reference Range Facil ity Vital Signs Date Time Vital Sign Value Performing Clinician Faci lity 07-24-2023 08:41-0500 Body height 165.5 cm Rod Metz MD Work Phone: [facility] 07-24-2023 08:41-0500 Body weight 110.22 kg Rod Metz MD Work Phone: [facility] 07-24-2023 08:41-0500 Diastolic blood pressure 80 mm[Hg] Rod Metz MD Work Phone: [facility] 07-24-2023 08:41-0500 Heart rate 73 /min Rod Metz MD Work Phone: [facility] 07-24-2023 08:41-0500 Systolic blood pressure 118 mm[Hg] Rod Metz MD Work Phone: [facility] 05-18-2023 11:12-0400 Body height 165.5 cm Janet Smith MD Work Phone: [facility] 05-18-2023 11:12-0400 Body weight 106.59 kg Janet Smith MD Work Phone: [facility] 05-18-2023 11:12-0400 Diastolic blood pressure 86 mm[Hg] Janet Smith MD Work Phone: [facility] 05-18-2023 11:12-0400 Heart rate 77 /min Janet Smith MD Work Phone: [facility] 05-18-2023 11:12-0400 Systolic blood pressure 140 mm[Hg] Janet Smith MD Work Phone: [facility] 05-12-2023 11:43-0400 Body temperature 97 [degF] Elvin Wilson DO Work Phone: [facility] 05-12-2023 11:43-0400 Body weight 107.5 kg Elvin Wilson DO Work Phone: [facility] 05-12-2023 11:43-0400 Diastolic blood pressure 86 mm[Hg] Elvin Wilson DO Work Phone: [facility] 05-12-2023 11:43-0400 Heart rate 72 /min Elvin Wilson DO Work Phone: [facility] 05-12-2023 11:43-0400 Respiratory rate 16 /min Elvin Wilson DO Work Phone: [facility] 05-12-2023 11:43-0400 Systolic blood pressure 134 mm[Hg] Elvin Wilson DO Work Phone: [facility] 04-17-2023 14:37-0400 Body temperature 99.61 [degF] Juana Canas PA-C Work Phone: [facility] 04-17-2023 14:37-0400 Body weight 106.87 kg Juana Athy PA-C Work Phone: [facility] 04-17-2023 14:37-0400 Diastolic blood pressure 78 mm[Hg] Juana Athy PA-C Work Phone: [facility] 04-17-2023 14:37-0400 Heart rate 94 /min Juana Athy PA-C Work Phone: [facility] 04-17-2023 14:37-0400 Respiratory rate 20 /min Juana Athy PA-C Work Phone: [facility] 04-17-2023 14:37-0400 SaO2% (BldA) [Mass fraction] 99 % Juana Athy PA-C Work Phone: [facility] 04-17-2023 14:37-0400 Systolic blood pressure 146 mm[Hg] Juana Athy PA-C Work Phone: [facility] 04-17-2023 13:41-0400 Body height 165.[address] [facility] 04-17-2023 13:41-0400 Body weight 106.[address] [facility] 02-02-2023 13:57-0400 Body height 167.6 cm Isidro Stroud MD Work Phone: [facility] [employer] 02-02-2023 13:57-0400 Body mass index (BMI) [Ratio] 37.12 kg/m2 Isidro Stroud MD Work Phone: [facility] [employer] 02-02-2023 13:57-0400 Body weight 104.33 kg Isidro Stroud MD Work Phone: [facility] [employer] 02-02-2023 13:57-0400 Diastolic blood pressure 84 mm[Hg] Isidro Stroud MD Work Phone: [facility] [employer] 02-02-2023 13:57-0400 Heart rate 83 /min Isidro Stroud MD Work Phone: [facility] 02-02-2023 13:57-0400 Systolic blood pressure 137 mm[Hg] Isidro Stroud MD Work Phone: [facility] 01-14-2023 13:43-0400 Body temperature 99.19 [degF] Amy Shelby APRN.[employer]QA SPECIALIST Work Phone: [facility] 01-14-2023 13:43-0400 Body weight 105.23 kg Amy Shelby APRN.[employer]QA SPECIALIST Work Phone: [facility] 01-14-2023 13:43-0400 Diastolic blood pressure 80 mm[Hg] Amy Shelby APRN.[employer]QA SPECIALIST Work Phone: [facility] 01-14-2023 13:43-0400 Heart rate 84 /min Amy Shelby APRN.NCQA SPECIALIST Work Phone: [facility] 01-14-2023 13:43-0400 Respiratory rate 16 /min Amy Shelby APRN.NCQA SPECIALIST Work Phone: [facility] 01-14-2023 13:43-0400 SaO2% (BldA) [Mass fraction] 98 % Amy Shelby APRN.NCQA SPECIALIST Work Phone: [facility] 01-14-2023 13:43-0400 Systolic blood pressure 132 mm[Hg] Amy Shelby APRN.NCQA SPECIALIST Work Phone: [facility] 01-10-2023 18:30-0400 Body temperature 99.3 [degF] Monica Sweeneyler-Jero BIOLOGY TUTOR.[employer]QA SPECIALIST Work Phone: [facility] 01-10-2023 18:30-0400 Body weight 107.05 kg Monica Tom-Jero BIOLOGY TUTOR.NCQA SPECIALIST Work Phone: [facility] 01-10-2023 18:30-0400 Diastolic blood pressure 82 mm[Hg] Monica Sweeneyler-Jero BIOLOGY TUTOR.NCQA SPECIALIST Work Phone: [facility] 01-10-2023 18:30-0400 Heart rate 102 /min Monica Tom-Wood BIOLOGY TUTOR.NCQA SPECIALIST Work Phone: [facility] 01-10-2023 18:30-0400 Respiratory rate 18 /min Monica Prajimboler-Wood BIOLOGY TUTOR.NCQA SPECIALIST Work Phone: [facility] 01-10-2023 18:30-0400 SaO2% (BldA) [Mass fraction] 98 % Monica Praisler-Wood BIOLOGY TUTOR.NCQA SPECIALIST Work Phone: [facility] 01-10-2023 18:30-0400 Systolic blood pressure 126 mm[Hg] Monica Praisler-Wood BIOLOGY TUTOR.NCQA SPECIALIST Work Phone: [facility] 10-21-2022 12:46-0500 Body height 165.5 cm Chrissie Valdez BIOLOGY TUTOR.NCQA SPECIALIST Work Phone: [facility] 10-21-2022 12:46-0500 Body weight 104.96 kg Chrissie Valdez BIOLOGY TUTOR.NCQA SPECIALIST Work Phone: [facility] 10-21-2022 12:46-0500 Diastolic blood pressure 68 mm[Hg] Chrissie Valdez BIOLOGY TUTOR.NCQA SPECIALIST Work Phone: [facility] 10-21-2022 12:46-0500 Heart rate 60 /min Chrissie Valdez BIOLOGY TUTOR.NCQA SPECIALIST Work Phone: [facility] 10-21-2022 12:46-0500 Respiratory rate 12 /min Chrissie Valdez BIOLOGY TUTOR.NCQA SPECIALIST Work Phone: [facility] 10-21-2022 12:46-0500 Systolic blood pressure 120 mm[Hg] Chrissie Valdez BIOLOGY TUTOR.NCQA SPECIALIST Work Phone: [facility] 01-03-2022 14:05-0400 Body weight 91.63 kg Brendan Blaz BIOLOGY TUTOR.NCQA SPECIALIST, DNP Work Phone: [facility] 01-03-2022 14:05-0400 Diastolic blood pressure 78 mm[Hg] Brendan Blaz BIOLOGY TUTOR.NCQA SPECIALIST, DNP Work Phone: [facility] 01-03-2022 14:05-0400 Heart rate 66 /min Brendan Blaz BIOLOGY TUTOR.NCQA SPECIALIST, DNP Work Phone: [facility] 01-03-2022 14:05-0400 Respiratory rate 12 /min Brendan Avalos APRN.NCQA SPECIALIST, DNP Work Phone: [facility] 01-03-2022 14:05-0400 SaO2% (BldA) [Mass fraction] 99 % Brendan Avalos BIOLOGY TUTOR.NCQA SPECIALIST, DNP Work Phone: [facility] 01-03-2022 14:05-0400 Systolic blood pressure 122 mm[Hg] Brendan Avalos BIOLOGY TUTOR.NCQA SPECIALIST, DNP Work Phone: [facility] 12-03-2021 15:43-0400 Body height 167.6 cm Karla Hernandez MD Work Phone: [facility] 12-03-2021 15:43-0400 Body temperature 97.9 [degF] Karla Hernandez MD Work Phone: [facility] 12-03-2021 15:43-0400 Body weight 88.91 kg Karla Hernandez MD Work Phone: [facility] 12-03-2021 15:43-0400 Diastolic blood pressure 86 mm[Hg] Karla Hernandez MD Work Phone: [facility] 12-03-2021 15:43-0400 Heart rate 82 /min Karla Hernandez MD Work Phone: [facility] 12-03-2021 15:43-0400 SaO2% (BldA) [Mass fraction] 98 % Karla Hernandez MD Work Phone: [facility] 12-03-2021 15:43-0400 Systolic blood pressure 124 mm[Hg] Karla Hernandez MD Work Phone: [facility] 11-26-2021 14:18-0400 Body weight 89.81 kg Brendan Avalos BIOLOGY TUTOR.NCQA SPECIALIST, DNP Work Phone: [facility] 11-26-2021 14:18-0400 Diastolic blood pressure 66 mm[Hg] Brendan Blajackie BIOLOGY TUTOR.NCQA SPECIALIST, DNP Work Phone: [facility] 11-26-2021 14:18-0400 Heart rate 80 /min Brendan Avalos APRN.NCQA SPECIALIST, [facility] Work Phone: [facility] 11-26-2021 14:18-0400 Respiratory rate 14 /min Brendan Avalos APRN.NCQA SPECIALIST, [facility] Work Phone: [facility] 11-26-2021 14:18-0400 SaO2% (BldA) [Mass fraction] 98 % Brendan Avalos APRN.NCQA SPECIALIST, [facility] Work Phone: [facility] 11-26-2021 14:18-0400 Systolic blood pressure 118 mm[Hg] Brendan Avalos APRN.NCQA SPECIALIST, [facility] Work Phone: [facility] Encounters Encounter Date Encounter Type Care Provider Facility Start: 08-31-2023 End: 08-31-2023 ambulatory ROD METZ Facility:[facility] Start: 08-23-2023 End: 08-23-2023 ambulatory ELVIN L WILSON Facility:[facility] Start: 08-18-2023 Refill Elvin L Garri son DO Work Phone: [facility] [place] Start: 08-17-2023 Refill Elvin L Garri son DO Work Phone: [facility] [place] Procedures Date Procedure Procedure Detail Performing Clinician Start: 05-12-2023 Ecg routine ecg w/le ast 12 lds i&r only [facility] Provider Start: 04-17-2023 COVID & INFLUENZA A/ B NAAT, ROUTINE Juana Canas PA-C Work Phone: Start: 04-17-2023 STREP A MOLECULAR (POC) Juana Canas PA-C Work Phone: Start: 01-20-2023 Thyrotropin [Units/v olume] in Serum or Plasma Isidro Stroud MD Work Phone: Start: 01-14-2023 STREP A MOLECULAR (POC) Amy Shelby APRN.CNP Work Phone: Start: 05-09-2023 COVID WITH FLUA+B, ROUTINE Monica Castano APRN.MEHRDAD Work Phone: Start: 01-10-2023 STREP A MOLECULAR (POC) Monica Castano APRN.MEHRDAD Work Phone: Start: 11-11-2022 End: 11-11-2022 Mammography Bulk Order Provider Start: 10-28-2022 soft tissue head & neck real time imge docm Chrissie Valdez APRN.MEHRDAD Work Phone: Start: 10-22-2022 Lipid 1996 panel - S angel or Plasma Elvin Wilson DO Work Phone: Start: 08-06-2021 Mammography Brendan mejia APRN.DUARTE CRONIN Work Phone: Start: 02-09-2021 Adult depression scr eening assessment Brendan Avalos APRN.DUARTE CRONIN Work Phone: Start: 11-23-2020 Colonoscopy Brendan mejia APRN.DUARTE CRONIN Work Phone: Plan of Treatment Date Care Activity Detail Author Start: 10-21-2032 DTaP/Tdap/Td Vaccines (3 - Td or Tdap) DTaP/Tdap/Td Vaccines (3 - Td or Tdap) [facility] Start: 10-21-2032 Urine microalbumin profile [facility] Start: 10-22-2027 Lipid 1996 panel - Serum or Plasma Lipid Screening [facility] Start: 10-22-2027 Lipid panel [facility] [facility] Start: 10-22-2027 LIPID SCREEN LIPID SCREEN [facility] Start: 10-05-2026 LIPID SCREEN LIPID SCREEN [facility] Start: 04-14-2026 HPV TESTING HPV TESTING [facility] Start: 04-14-2026 PAP TESTING PAP TESTING [facility] Start: 04-14-2026 Screening for malignant neoplasm of cervix [facility] Start: 11-23-2025 Colonoscopy COLONOSCOPY [facility] Start: 11-23-2025 COLORECTAL CANCER SCREENING COLORECTAL CANCER SCREENING [facility] Start: 11-23-2025 Screening for malignant neoplasm of colon [facility] Start: 10-22-2025 DIABETES SCREEN DIABETES SCREEN [facility] Start: 10-22-2025 Diabetes Screening Diabetes Screening [facility] Start: 10-05-2024 DIABETES SCREEN DIABETES SCREEN [facility] Start: 05-12-2024 Annual PCP Team Chronic Disease Visit Annual PCP Team Chronic Disease Visit [facility] Start: 01-21-2024 ANNUAL PCP TEAM CHRONIC DISEASE VISIT ANNUAL PCP TEAM CHRONIC DISEASE VISIT [facility] Start: 01-21-2024 Thyroid stimulating hormone measurement TSH Level [facility] Start: 11-12-2023 Mammography [facility] Start: 11-12-2023 Screening for malignant neoplasm of breast Mammogram Screening [facility] Start: 10-21-2023 ANNUAL PCP TEAM CHRONIC DISEASE VISIT ANNUAL PCP TEAM CHRONIC DISEASE VISIT [facility] Start: 10-21-2023 BP CONTROLLED (<130/80) BP CONTROLLED (<130/80) [facility] in Start: 05-05-2023 Covid-19 Vaccine ( season) Covid-19 Vaccine () [facility] Start: 05-05-2023 Influenza vaccination [facility] Start: 01-03-2023 ANNUAL PCP TEAM CHRONIC DISEASE VISIT ANNUAL PCP TEAM CHRONIC DISEASE VISIT [facility] Start: 01-03-2023 BP CONTROLLED (<130/80) BP CONTROLLED (<130/80) [facility] in Start: 12-03-2022 End: 01-20-2023 Us soft tissue head & neck real time imge docm US THYROID/PARATHYROID Radiology Routine Right thyroid nodule Expected: 12/03/2022, Expires: 01/20/2023 [facility] Work Phone: Immunizations Immunization Date Immunization Notes Care Provider Teresa naavrro 10-21-2022 tetanus toxoid, redu moe diphtheria toxoid, and acellular pertussis vaccine, adsorbed Chrissie José Miguel BIOLOGY TUTOR.[employer] SPECIALIST Work Phone: [facility] 08-04-2022 influenza virus vaccine, unspecified formulation Elvin Wilson DO Work Phone: [facility] 07-26-2021 influenza, injectabl e, quadrivalent, preservative free Brendan Avalos BIOLOGY TUTOR.[employer] SPECIALIST, DNP Work Phone: [facility] 12-19-2020 COVID-19 vaccine, ag e 12+ yr ([facility]) Brendan Avalos APRN.[facility] Work Phone: [facility] 11-28-2020 COVID-19 vaccine, ag e 12+ yr ([facility]) Brendan Avalos APRN.[facility] Work Phone: [facility] 02-18-2020 zoster vaccine recombinant Brendan Avalos APRN.[facility] Work Phone: [facility] Work Phone: 08-21-2019 zoster vaccine recombinant Brendan Avalos APRN.[facility] Work Phone: [facility] Work Phone: 05-20-2019 influenza, injectabl e, quadrivalent, contains preservative Brendan Avalos APRN.[facility] Work Phone: [facility] Work Phone: 08-20-2018 influenza, injectabl e, quadrivalent, contains preservative Brendan Avalos APRN.[facility] Work Phone: [facility] Work Phone: 07-13-2018 influenza, seasonal, injectable Brendan Avalos APRN.[facility] Work Phone: [facility] 08-04-2017 influenza virus vaccine, unspecified formulation Brendan Avalos APRN.[facility] Work Phone: [facility] 06-10-2013 influenza virus vaccine, unspecified formulation Brendan Avalos APRN.[facility] Work Phone: [facility] 01-31-2012 tetanus toxoid, redu moe diphtheria toxoid, and acellular pertussis vaccine, adsorbed Brendan Avalos APRN.[facility] Work Phone: [facility] 07-01-2009 influenza virus vaccine, unspecified formulation Brendan Avalos APRN.[facility] Work Phone: [facility] Work Phone: Payers Date Payer Category Payer Unknown MMO MMO [employer] [id number] 2020-Present [phone] [address] [place] [address] PPO [id number] 2020 Unknown [id number] 2020 Unknown [id number] Social History Date Type Detail Facility Start: 11-23-2020 End: 01-10-2023 Tobacco smoking status NHIS Ex-smoker [facility] Work Phone: End: 09-04-2002 History of tobacco use Current smoker [facility] End: 09-04-2002 History of tobacco use Cigarette Smoker [facility] Start: 10-11-2021 End: 05-18-2023 Alcohol intake Current non-drinker of alcohol (finding) [facility] Start: 08-14-2019 End: 10-21-2022 History SDOH Alcohol Frequency 1 [facility] Start: 05-15-2020 History SDOH Alcohol Std Drinks 98 [facility] Start: 05-15-2020 End: 10-21-2022 History SDOH Social Connections Phone 2 [facility] Start: 08-14-2019 End: 10-21-2022 History SDOH Social Connections Living 3 [facility] Start: 08-14-2019 History SDOH Physica l Activity DPW 0 [facility] Start: 06-17-2020 End: 10-21-2022 History SDOH Financial 5 [facility] Start: 08-14-2019 Education 12 [facility] Start: 1960 Sex Assigned At Female [facility] Start: 11-22-2021 End: 06-21-2022 Exposure to SARS-CoV-2 (event) Not sure [facility] Work Phone: Start: 11-23-2020 End: 01-20-2023 Cigarettes smoked current (pack per day) - Reported 2 [facility] Start: 11-23-2020 End: 01-10-2023 Tobacco use and exposure Smokeless tobacco non-user [facility] Start: 10-21-2022 History SDOH Physica l Activity MPS 4 [facility] Start: 1960 Sex Assigned At Not on file [facility] Start: 10-21-2022 End: 01-20-2023 Social connection and isolation panel [facility] Do you belong to any clubs or organizations such as mormon groups, unions, fraternal or athletic groups, or school groups? No [facility] Are you now , , , , never or living with a partner? [facility] How often to you hav e a drink containing alcohol? Monthly or less [facility] How many standard drinks containing alcohol do you have on a typical day? 1 or 2 [facility] How often do you hav e 6 or more drinks on 1 occasion? Never [facility] How hard is it for y ou to pay for the very basics like food, housing, medical care, and heating Not hard at all [facility] Do you feel stress - tense, restless, nervous, or anxious, or unable to sleep at night because your mind is troubled all the time - these days [OSQ] Not at all [facility] (I/We) worried wheth er (my/our) food would run out before (I/we) got money to buy more. Never true [facility] Start: 12-10-2018 Gender identity Identifies as female gender (finding) [facility] Start: 12-10-2018 Sexual orientation Heterosexual (cesar rahman) [facility] NEGATED: Highlighted rowStart: NINF History of tobacco use Passive smoker [facility] Clinical Notes 04-27-2012 to 08-23-2023 Telephone Encounter - Mami Campbell LPN - 08/18/2023 9:44 AM ESTTelephone Encounter - Amanda Pearl LPN - 08/17/2023 9:18 AM ESTTelephone Encounter - Lexie Suarez - 07/26/2023 2:09 PM EST Note Date & Type Note Facility 08-23-2023 Note HNO ID: [id number] Author: Elvin Wilson, DO Service: ? Author Type: Physician Type: Progress Notes Filed: 08/23/2023 2:26 PM Note Text: CC: Aurelia Ferrara is a 63 year old female who presents to the office for follow up HPI: Seen in office last on 05/12/23 as below Patient states that recently she has had left arm and shoulder aching and soreness as well as occasional chest pressure and discomfort and dyspnea. No current symptoms, no LH or dizziness or syncope. Also noticed that she had some heart racing up to 109 bpm when she was sitting watching TV, not exertional. She has been trying to walk more for exercise. No known hx of CAD in the past. 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 She is having a LOOP Recorder placed for closer monitoring of her heart rate and symptoms per specialist Hypothyroidism, she wanted to try off her levothyroxine which she tried for a few months but now she is struggling with fatigue symptoms as well as hair thinning and skin changes. Thinks needs to restart hormone Knows need to be more consistent with her vitamins. PAST MEDICAL HISTORY Diagnosis Date Abdominal pain, unspecified site Arthritis Benign neoplasm of colon Hypertension, essential 10/11/2021 NAFL (nonalcoholic fatty liver) Osteoarthritis Snoring Unspecified constipation PAST SURGICAL HISTORY Procedure Laterality Date ARTHRP ACETBLR/PROX FEM PROSTC AGRFT/ALGRFT Right 10/24/2017 Hip replacement, total COLONOSCOPY FLX DX W/COLLJ SPEC WHEN PFRMD 08/19/2009 COLONOSCOPY FLX DX W/COLLJ SPEC WHEN PFRMD 10/26/2012 Colonoscopy repeat 3 years COLONOSCOPY FLX DX W/COLLJ SPEC WHEN PFRMD 11/09/2015 Colonoscopy COLONOSCOPY GEN ANES 11/23/2020 Repeat in 5 years EYE SURGERY HX HEMORRHOIDECTOMY INTERNAL RUBBER BAND LIGATIONS 03/05/2010 Hemorrhoidectomy JOINT REPLACEMENT HX LIG/TRNSXJ FLP TUBE ABDL/VAG APPR UNI/BI 1991 Tubal ligation PAST SURGICAL HISTORY OF 1997 tubal reversal PAST SURGICAL HISTORY OF 02/17/2020 Eye Surgery Closed angle Glaucoma Social History: Social History Tobacco Use Smoking status: Former Packs/day: 2.00 Years: 20.00 Additional pack years: 0.00 Total pack years: 40.00 Types: Cigarettes Quit date: 1996 Years since quittin.9 Smokeless tobacco: Never Vaping Use Vaping Use: Never used Substance Use Topics Alcohol use: No Drug use: No FAMILY HISTORY Problem Relation Age of Onset Cancer Father colon, esophagus, stomach, abdomen None Mother No Known Problems Sister Alcohol/Drug Brother No Known Problems Brother No Known Problems Son No Known Problems Son No Known Problems Son Cancer Maternal Grandmother Lymph node Diabetes Maternal Grandfather type 2 other (Dementia) Paternal Grandmother Colon Cancer Colon Cancer Paternal Grandfather Current Outpatient prescriptions: metoprolol succinate ER (TOPROL XL) 25 mg 24 hr tabletTake 1 tablet by mouth once daily.Disp: 90 tabletRfl: 1 ZINC ORALTake 50 mg by mouth once daily.Disp: Rfl: nitroglycerin sublingual (NITROQUICK) 0.4 mg SL tabletDissolve 1 tablet under the tongue every 5 minutes as needed for chest pain.Disp: 25 tabletRfl: 1 levothyroxine (LEVOXYL) 25 mcg tabletTake 1 tablet by mouth once daily. Take on empty stomach. For ThyroidDisp: 30 tabletRfl: 2 (Patient not taking: Reported on 05/18/2023) fluticasone (FLONASE) 50 mcg/actuation nasal sprayUse 2 Sprays in each nostril once daily. Rinse mouth after use.Disp: 1 EachRfl: 0 MV-Min-Vit [id number] (AIRBORNE, LYSINE HCL,) 1,000-50 mg tbefTake by mouth.Disp: Rfl: cyclobenzaprine (FLEXERIL) 10 mg tabletTake 1 tablet by mouth at bedtime as needed for muscle spasm or pain.Disp: 30 tabletRfl: 1 (Patient not taking: Reported on 07/24/2023) cyanocobalamin (VITAMIN B-12) 1,000 mcg tabTake 1,000 mcg by mouth once daily.Disp: Rfl: Ceramides 1,3,6-11 lotnApply to affected area.Disp: Rfl: cholecalciferol (VITAMIN D3) 5,000 unit tabTake 5,000 Units by mouth once daily.Disp: Rfl: Allergies: ALLERGIES Allergen Reactions Betadine [Povidone-* Intolerance Delayed onset pruritic rash, most likely irritant contact dermatitis Chlorhexidine Gluco* Rash Delayed onset pruritic rash, most likely irritant contact dermatitis ROS: See HPI PE: 08/23/23 0851 BP: 114/80 Pulse: 64 Resp: 16 Temp: 36.2 ?C (97.1 ?F) TempSrc: Temporal Weight: 108 kg (238 lb) Gen: AANDO, NAD, non-toxic appearing, Pleasant, cooperative HEENT: NT/AC, wearing glasses, PERRLA, EOMs intact b/l, nares clear and patent b/l, pharynx without erythema, exudate or lesions. Uvula midline. Neck: supple, No cervical LAD, no thyromegaly, no carotid bruits CV: RRR, normal S1 and S2, no murmurs, no gallops, no rubs, Pulses 2+ and symmetric in UE and LE b/l Lungs: normal respiratory effort, CTA b/l, no wheezing or rhonchi or r (more content not included)... [facility] 08-18-2023 Miscellaneous Notes Pt called to to clarify how she is taking medication Metoprolol. Pt is taking 25 mg 1 at bedtime. She has 3 left and requesting a refill. Please cancel prescription for 50 mg. Patient has been identified by name and date of : Yes, Provider Dr. Wilson Date 08/18/23 Time 9:47 am Patient phones for refill(s): Requested Prescriptions Pending Prescriptions Disp Refills metoprolol succinate ER (TOPROL XL) 25 mg 24 hr tablet 90 tablet 1 Sig: Take 1 tablet by mouth once daily. Date of last office visit in primary care: 05/12/2023 Date of next office visit in primary care: 08/23/2023 Please advise. Thank you. Mami Campbell LPN. documented in this encounter [facility] 08-17-2023 Miscellaneous Notes Pharmacy comment: SIG Validation so morning or bedtime?? it says once daily in morning and bedtime. Amanda Pearl LPN documented in this encounter [facility] 07-26-2023 Miscellaneous Notes PROCEDURE: 08/25/23 @ 10:00 am (arrival time: 9:00 am). LOOP IMPLANTATION/MEDTRONIC w/ Dr. Metz. Lexie Kaye w/ pt. Procedure date/ time/ instructions given over the phone Leigha wiseman/ Nina @ hosp. F/u schd. No No Prep Lexie Suarez Coordinator [facility] documented in this encounter [facility] 07-24-2023 Note HNO ID: [id number] Author: Rod Metz MD Service: ? Author Type: Physician Type: Progress Notes Filed: 07/24/2023 11:06 AM Note Text: [facility] [place] [facility] Department of Cardiovascular Medicine SECTION OF CARDIAC PACING and ELECTROPHYSIOLOGY OUTPATIENT VISIT DATE July 24, 2023 OUTPATIENT VISIT TYPE CONSULTATION PRIMARY CARE PHYSICIAN: Elvin Wilson [address] [place] [address] REFERRING PHYSICIAN No referring provider defined for this encounter. CHIEF COMPLAINT: Palpiations and bradycardia. HISTORY OF PRESENT ILLNESS: Cardiac consultation at the request of Dr.Amir Smith. A copy of this consultation note will be provided to the requesting physician by way of shared Medical record or letter to requesting physician via US mail. Ms. Ferrara is a 63 year old female who is seen today for abnormal event monitor. Patient does not have any known cardiac history. Few weeks ago patient had some atypical chest pain , and palpitations. She was see by Dr Smith. She underwent stress echo which was normal . She also had event monitor that showed longest pause upto. She denies further any chest pain, shortness of breath, orthopnea, cough, edema, palpitations, PND, syncope. She was already on Toprol 25 mg PO daily and it was increased to 50 mg PO daily recently. PAST CARDIAC HISTORY: None PAST MEDICAL HISTORY Diagnosis Date Abdominal pain, unspecified site Arthritis Benign neoplasm of colon Hypertension, essential 10/11/2021 NAFL (nonalcoholic fatty liver) Osteoarthritis Snoring Unspecified constipation PAST SURGICAL HISTORY Procedure Laterality Date ARTHRP ACETBLR/PROX FEM PROSTC AGRFT/ALGRFT Right 10/24/2017 Hip replacement, total COLONOSCOPY FLX DX W/COLLJ SPEC WHEN PFRMD 08/19/2009 COLONOSCOPY FLX DX W/COLLJ SPEC WHEN PFRMD 10/26/2012 Colonoscopy repeat 3 years COLONOSCOPY FLX DX W/COLLJ SPEC WHEN PFRMD 11/09/2015 Colonoscopy COLONOSCOPY GEN ANES 11/23/2020 Repeat in 5 years EYE SURGERY HX HEMORRHOIDECTOMY INTERNAL RUBBER BAND LIGATIONS 03/05/2010 Hemorrhoidectomy JOINT REPLACEMENT HX LIG/TRNSXJ FLP TUBE ABDL/VAG APPR UNI/BI 1991 Tubal ligation PAST SURGICAL HISTORY OF 1997 tubal reversal PAST SURGICAL HISTORY OF 02/17/2020 Eye Surgery Closed angle Glaucoma SOCIAL HISTORY Social History Tobacco Use Smoking status: Former Packs/day: 2.00 Years: 20.00 Additional pack years: 0.00 Total pack years: 40.00 Types: Cigarettes Quit date: 1996 Years since quittin.9 Smokeless tobacco: Never Vaping Use Vaping Use: Never used Substance Use Topics Alcohol use: No Drug use: No FAMILY HISTORY Problem Relation Age of Onset Cancer Father colon, esophagus, stomach, abdomen None Mother No Known Problems Sister Alcohol/Drug Brother No Known Problems Brother No Known Problems Son No Known Problems Son No Known Problems Son Cancer Maternal Grandmother Lymph node Diabetes Maternal Grandfather type 2 other (Dementia) Paternal Grandmother Colon Cancer Colon Cancer Paternal Grandfather ALLERGIES: ALLERGIES Allergen Reactions Betadine [Povidone-* Intolerance Delayed onset pruritic rash, most likely irritant contact dermatitis Chlorhexidine Gluco* Rash Delayed onset pruritic rash, most likely irritant contact dermatitis MEDICATIONS: ZINC ORALTake 50 mg by mouth once daily.Disp: Rfl: metoprolol succinate ER (TOPROL XL) 50 mg 24 hr tabletTake 1 tablet by mouth daily in the late morning. At bedtime for hypertensionDisp: 90 tabletRfl: 3 nitroglycerin sublingual (NITROQUICK) 0.4 mg SL tabletDissolve 1 tablet under the tongue every 5 minutes as needed for chest pain.Disp: 25 tabletRfl: 1 fluticasone (FLONASE) 50 mcg/actuation nasal sprayUse 2 Sprays in each nostril once daily. Rinse mouth after use.Disp: 1 EachRfl: 0 MV-Min-Vit [id number] (AIRBORNE, LYSINE HCL,) 1,000-50 mg tbefTake by mouth.Disp: Rfl: cyanocobalamin (VITAMIN B-12) 1,000 mcg tabTake 1,000 mcg by mouth once daily.Disp: Rfl: Ceramides 1,3,6-11 lotnApply to affected area.Disp: Rfl: cholecalciferol (VITAMIN D3) 5,000 unit tabTake 5,000 Units by mouth once daily.Disp: Rfl: levothyroxine (LEVOXYL) 25 mcg tabletTake 1 tablet by mouth once daily. Take on empty stomach. For ThyroidDisp: 30 tabletRfl: 2 (Patient not taking: Reported on 05/18/2023) cyclobenzaprine (FLEXERIL) 10 mg tabletTake 1 tablet by mouth at bedtime as needed for muscle spasm or pain.Disp: 30 tabletRfl: 1 (Patient not taking: Reported on 07/24/2023) REVIEW OF SYSTEMS: A complete review of systems was obtained from the patient and there is nothing pertinent other than what is mentioned in the HPI. PHYSICAL EXAMINATION: BP 118/80 Pulse 73 Ht 165.5 cm (5' 5.16 ) Wt 110.2 kg (243 lb) LMP 10/20/2016 BMI 40.24 kg/m? BP w/Orthostatic Vitals Date a (more content not included)... [facility] 07-24-2023 History of Presen t illness Narrative Images from the original note were not included. [facility] [place] [facility] Department of Cardiovascular Medicine SECTION OF CARDIAC PACING and ELECTROPHYSIOLOGY OUTPATIENT VISIT DATE July 24, 2023 OUTPATIENT VISIT TYPE CONSULTATION PRIMARY CARE PHYSICIAN: Elvin Wilson [address] [place] [address] REFERRING PHYSICIAN No referring provider defined for this encounter. CHIEF COMPLAINT: Palpiations and bradycardia. HISTORY OF PRESENT ILLNESS: Cardiac consultation at the request of Dr.Amir Smith. A copy of this consultation note will be provided to the requesting physician by way of shared Medical record or letter to requesting physician via US mail. Ms. Ferrara is a 63 year old female who is seen today for abnormal event monitor. Patient does not have any known cardiac history. Few weeks ago patient had some atypical chest pain , and palpitations. She was see by Dr Smith. She underwent stress echo which was normal . She also had event monitor that showed longest pause upto. She denies further any chest pain, shortness of breath, orthopnea, cough, edema, palpitations, PND, syncope. She was already on Toprol 25 mg PO daily and it was increased to 50 mg PO daily recently. PAST CARDIAC HISTORY: None PAST MEDICAL HISTORY Diagnosis Date Abdominal pain, unspecified site Arthritis Benign neoplasm of colon Hypertension, essential 10/11/2021 NAFL (nonalcoholic fatty liver) Osteoarthritis Snoring Unspecified constipation PAST SURGICAL HISTORY Procedure Laterality Date ARTHRP ACETBLR/PROX FEM PROSTC AGRFT/ALGRFT Right 10/24/2017 Hip replacement, total COLONOSCOPY FLX DX W/COLLJ SPEC WHEN PFRMD 08/19/2009 COLONOSCOPY FLX DX W/COLLJ SPEC WHEN PFRMD 10/26/2012 Colonoscopy repeat 3 years COLONOSCOPY FLX DX W/COLLJ SPEC WHEN PFRMD 11/09/2015 Colonoscopy COLONOSCOPY GEN ANES 11/23/2020 Repeat in 5 years EYE SURGERY HX HEMORRHOIDECTOMY INTERNAL RUBBER BAND LIGATIONS 03/05/2010 Hemorrhoidectomy JOINT REPLACEMENT HX LIG/TRNSXJ FLP TUBE ABDL/VAG APPR UNI/BI 1991 Tubal ligation PAST SURGICAL HISTORY OF 1997 tubal reversal PAST SURGICAL HISTORY OF 02/17/2020 Eye Surgery Closed angle Glaucoma SOCIAL HISTORY Social History Tobacco Use Smoking status: Former Packs/day: 2.00 Years: 20.00 Additional pack years: 0.00 Total pack years: 40.00 Types: Cigarettes Quit date: 1996 Years since quittin.9 Smokeless tobacco: Never Vaping Use Vaping Use: Never used Substance Use Topics Alcohol use: No Drug use: No FAMILY HISTORY Problem Relation Age of Onset Cancer Father colon, esophagus, stomach, abdomen None Mother No Known Problems Sister Alcohol/Drug Brother No Known Problems Brother No Known Problems Son No Known Problems Son No Known Problems Son Cancer Maternal Grandmother Lymph node Diabetes Maternal Grandfather type 2 other (Dementia) Paternal Grandmother Colon Cancer Colon Cancer Paternal Grandfather ALLERGIES: ALLERGIES Allergen Reactions Betadine [Povidone-* Intolerance Delayed onset pruritic rash, most likely irritant contact dermatitis Chlorhexidine Gluco* Rash Delayed onset pruritic rash, most likely irritant contact dermatitis MEDICATIONS: ZINC ORAL^Take 50 mg by mouth once daily.^Disp: ^Rfl: metoprolol succinate ER (TOPROL XL) 50 mg 24 hr tablet^Take 1 tablet by mouth daily in the late morning. At bedtime for hypertension^Disp: 90 tablet^Rfl: 3 nitroglycerin sublingual (NITROQUICK) 0.4 mg SL tablet^Dissolve 1 tablet under the tongue every 5 minutes as needed for chest pain.^Disp: 25 tablet^Rfl: 1 fluticasone (FLONASE) 50 mcg/actuation nasal spray^Use 2 Sprays in each nostril once daily. Rinse mouth after use.^Disp: 1 Each^Rfl: 0 MV-Min-Vit [id number]-[id number] (AIRBORNE, LYSINE HCL,) 1,000-50 mg tbef^Take by mouth.^Disp: ^Rfl: cyanocobalamin (VITAMIN B-12) 1,000 mcg tab^Take 1,000 mcg by mouth once daily.^Disp: ^Rfl: Ceramides 1,3,6-11 lotn^Apply to affected area.^Disp: ^Rfl: cholecalciferol (VITAMIN D3) 5,000 unit tab^Take 5,000 Units by mouth once daily.^Disp: ^Rfl: levothyroxine (LEVOXYL) 25 mcg tablet^Take 1 tablet by mouth once daily. Take on empty stomach. For Thyroid^Disp: 30 tablet^Rfl: 2 (Patient not taking: Reported on 05/18/2023) cyclobenzaprine (FLEXERIL) 10 mg tablet^Take 1 tablet by mouth at bedtime as needed for muscle spasm or pain.^Disp: 30 tablet^Rfl: 1 (Patient not taking: Reported on 07/24/2023) REVIEW OF SYSTEMS: A complete review of systems was obtained from the patient and there is nothing pertinent other than what is mentioned in the HPI. PHYSICAL EXAMINATION: BP 118/80 Pulse 73 Ht 165.5 cm (5' 5.16 ) Wt 110.2 kg (243 lb) LMP 10/20/2016 BMI 40.24 kg/m BP w/Orthostatic Vitals Date and Time Orthostatic BP Orthostatic Pulse BP Pulse BP Position BP Site BP Cuff Size 07/24/23 0841 -- -- 118/80 73 -- -- -- Eyes: Extra ocular movements intact Oropharynx: Teeth in good repair. Lungs: Clear to auscultation bilaterally, no wheezing or rhonchi. Heart: Regular rhythm, PMI not displaced, S1, S2 normal, no S3, no S4, no heaves, no rub and no murmur. Last ECHO Result Conclusion ECHO Collected: 05/23/2023 1:06 PM (Final result) Impression: CONCLUSIONS: - Exam indication: BORDEN; Palpitations; Abnormal EKG - The left ventricle is normal in size. Left ventricular systolic function is normal. EF = 66 5% (2D biplane) Normal left ventricular diastolic function. - The right ventricle is normal in size. Right ventricular systolic function is normal. - Estimated right ventricular systolic pressure is 31 mmHg consistent with normal pulmonary artery pressures. Estimated right atrial pressure is 3 mmHg based on IVC assessment. - There are no significant valvular abnormalities. - Exam was compared with the prior echocardiographic exam performed on 12/31/2018. There is no significant change. * * * Final * * * Last EKG Result Conclusion ECG COMPLETE Collected: 05/12/2023 11:25 AM (Final result) Impression: NORMAL SINUS RHYTHM NONSPECIFIC T WAVE ABNORMALITY ABNORMAL ECG Confirmed by JACKSON GONZALEZ D.O. ([id number]) on 05/19/2023 2:38:46 PM I have personally reviewed the Electrocardiogram, Echocardiogram, Stress Test: Electrocardiogram, and event monitor. IMPRESSION: PLAN AND RECOMMENDATIONS: Patient has a good exercise tolerance. Patient recently have exercise stress test and was able to exercise more than 6 minutes achieve more than 90% of age-predicted heart rate there was no heart block even with 144 peak heart rate ( intact 1:1 AV conduction ) reviewed strips. Patient has no infrahisian disease as it would have blocked at this heart rate. Pauses with 2:!1 event monitor episodes like kathryn blocks related to vagal stimulation. Patient denies any syncope chest pain shortness of breath occasionally feels dizzy lasting for less than 2 second once in a while are not related to pauses. There is no convincing evidence for pacemaker at this point. Her tachycardia episodes are sinus tachycardia. No PVCs noticed. We will get her loop recorder implant instead, to monitor her infrequent palpitation episodes and any future advanced heart block. Patient will continue to follow with Dr. Smith. We will get remote reports. We will reduce the Toprol to 25 mg PO daily. Rod Metz M.D., M.S Assessment Clinicianbeer still runner compounder, [facility] Toi Isbell [facility] [place] [facility] Department of Cardiovascular Medicine Cardiac Electrophysiology and Pacing Section [address] [address], [address] [place], [place] [address] (p): [phone](f): [phone] documented in this encounter [facility] 06-19-2023 Miscellaneous Notes RN called patient to review monitor results as per Dr. Smith's message. Message from provider read to patient as written, [facility] Office number ([phone]) provided to patient to schedule office visit with Dr. Metz. Verbalized an understanding, appreciative of call and number. Siddharth Shelton RN ----- Message from Janet Smith MD sent at 06/19/2023 8:39 AM EDT ----- Referral to electrophysiology to Dr. Metz to be seen soon. Palpitation, tachycardia or bradycardia, sinus pauses second-degree AV block.. Continue your current medical treatment. please call and/or send a letter to the patient. Please release results to [facility] documented in this encounter [facility] 05-24-2023 Miscellaneous Notes Pt. informed. Please inform patient that her stress testing treadmill testing is normal appearing. Also her ECHO is overall normal as well, no concerns. Normal systolic pumping function and diastolic resting function as well as no signs of valve concerns. If she continues to have symptoms then would recommend opinion by Cleaner And Polisher Elvin Wilson DO documented in this encounter [facility] 05-18-2023 Note HNO ID: [id number] Author: Janet Smith MD Service: ? Author Type: Physician Type: Progress Notes Filed: 05/18/2023 11:46 AM Note Text: [facility] [place] [facility] Department of Cardiovascular Medicine SECTION OF CLINICAL CARDIOLOGY OUTPATIENT VISIT DATE May 18, 2023 OUTPATIENT VISIT TYPE NEW PRIMARY CARE PHYSICIAN: Elvin Wilson, DO [address] [place] [address] CHIEF COMPLAINT: Chest Pain HISTORY OF PRESENT ILLNESS: Ms. Ferrara is a 62 year old who presents today for cardiac evaluation. Patient was seen recently by her PCP, she reported left-sided chest tightness, left arm and left shoulder, associated with mild dyspnea. No nausea vomiting no diaphoresis. No orthopnea or PND. She reported occasional palpitation described as fluttering sensation while she was watching TV. No accompanying symptoms such as dizziness lightheadedness near syncope or syncope. No peripheral edema. No previous cardiac related issues. PAST CARDIAC HISTORY: See my detailed impression for past cardiac history. PAST MEDICAL HISTORY Diagnosis Date Abdominal pain, unspecified site Arthritis Benign neoplasm of colon Hypertension, essential 10/11/2021 NAFL (nonalcoholic fatty liver) Osteoarthritis Snoring Unspecified constipation PAST SURGICAL HISTORY Procedure Laterality Date ARTHRP ACETBLR/PROX FEM PROSTC AGRFT/ALGRFT Right 10/24/2017 Hip replacement, total COLONOSCOPY FLX DX W/COLLJ SPEC WHEN PFRMD 08/19/2009 COLONOSCOPY FLX DX W/COLLJ SPEC WHEN PFRMD 10/26/2012 Colonoscopy repeat 3 years COLONOSCOPY FLX DX W/COLLJ SPEC WHEN PFRMD 11/09/2015 Colonoscopy COLONOSCOPY GEN ANES 11/23/2020 Repeat in 5 years EYE SURGERY HX HEMORRHOIDECTOMY INTERNAL RUBBER BAND LIGATIONS 03/05/2010 Hemorrhoidectomy JOINT REPLACEMENT HX LIG/TRNSXJ FLP TUBE ABDL/VAG APPR UNI/BI 1991 Tubal ligation PAST SURGICAL HISTORY OF 1997 tubal reversal PAST SURGICAL HISTORY OF 02/17/2020 Eye Surgery Closed angle Glaucoma SOCIAL HISTORY Social History Tobacco Use Smoking status: Former Packs/day: 2.00 Years: 20.00 Additional pack years: 0.00 Total pack years: 40.00 Types: Cigarettes Quit date: 1996 Years since quittin.7 Smokeless tobacco: Never Vaping Use Vaping Use: Never used Substance Use Topics Alcohol use: No Drug use: No FAMILY HISTORY Problem Relation Age of Onset Cancer Father colon, esophagus, stomach, abdomen None Mother No Known Problems Sister Alcohol/Drug Brother No Known Problems Brother No Known Problems Son No Known Problems Son No Known Problems Son Cancer Maternal Grandmother Lymph node Diabetes Maternal Grandfather type 2 other (Dementia) Paternal Grandmother Colon Cancer Colon Cancer Paternal Grandfather ALLERGIES: ALLERGIES Allergen Reactions Betadine [Povidone-* Intolerance Delayed onset pruritic rash, most likely irritant contact dermatitis Chlorhexidine Gluco* Rash Delayed onset pruritic rash, most likely irritant contact dermatitis MEDICATIONS: ZINC ORALTake 50 mg by mouth once daily.Disp: Rfl: nitroglycerin sublingual (NITROQUICK) 0.4 mg SL tabletDissolve 1 tablet under the tongue every 5 minutes as needed for chest pain.Disp: 25 tabletRfl: 1 fluticasone (FLONASE) 50 mcg/actuation nasal sprayUse 2 Sprays in each nostril once daily. Rinse mouth after use.Disp: 1 EachRfl: 0 metoprolol succinate ER (TOPROL XL) 25 mg 24 hr tabletTake 1 tablet by mouth daily in the late morning. At bedtime for hypertensionDisp: 90 tabletRfl: 3 MV-Min-Vit B-[id number]-[id number]-[id number] (AIRBORNE, LYSINE HCL,) 1,000-50 mg tbefTake by mouth.Disp: Rfl: cyclobenzaprine (FLEXERIL) 10 mg tabletTake 1 tablet by mouth at bedtime as needed for muscle spasm or pain.Disp: 30 tabletRfl: 1 cyanocobalamin (VITAMIN B-12) 1,000 mcg tabTake 1,000 mcg by mouth once daily.Disp: Rfl: Ceramides 1,3,6-11 lotnApply to affected area.Disp: Rfl: cholecalciferol (VITAMIN D3) 5,000 unit tabTake 5,000 Units by mouth once daily.Disp: Rfl: levothyroxine (LEVOXYL) 25 mcg tabletTake 1 tablet by mouth once daily. Take on empty stomach. For ThyroidDisp: 30 tabletRfl: 2 (Patient not taking: Reported on 05/18/2023) REVIEW OF SYSTEMS: See HPI. I personally interviewed, confirmed and edited the above information if obtained by others. PHYSICAL EXAMINATION: BP 140/86 Pulse 77 Ht 165.5 cm (5' 5.16 ) Wt 106.6 kg (235 lb) LMP 10/20/2016 BMI 38.91 kg/m? General: Well appearing, in no acute distress, speaking in complete sentences. Neck: No jugular venous distention, no carotid bruits, carotids have a normal upstroke, no palpable thyromegaly. Lungs: Clear to auscultation bilaterally, no wheezing or rhonchi. Heart: Regular rhythm, PMI not displaced, S1, S2 normal, no S3, no S4, no heaves, no rub and no murmur. Extremities: No peripheral edema . Grade 2/4 d (more content not included)... [facility] 05-18-2023 Note HNO ID: [id number] Author: Jose Luis Glass MD Service: ? Author Type: Physician Type: Procedures Filed: 06/17/2023 8:08 AM Note Text: Patient Name: Aurelia Ferrara : 1960 Ordering Provider: Janet Smith Indication: R07.2 Precordial Pain Type of Monitor: Extended Monitoring-Zio Patch Enrollment Dates: 05/23/2023-06/06/2023 Patient had a min HR of 24 bpm, max HR of 131 bpm, and avg HR of 75 bpm. Predominant underlying rhythm was Sinus Rhythm. 1 Pause occurred lasting 3.3 secs (18 bpm). Second Degree AV Block-Mobitz I (Wenckebach) was present. Isolated SVEs were rare (<1.0%), SVE Couplets were rare (<1.0%), and SVE Triplets were rare (<1.0%). Isolated VEs were rare (<1.0%), and no VE Couplets or VE Triplets were present. Jose Luis Glass MD [facility] 05-18-2023 Miscellaneous Notes Addended by: JANET SMITH on: 05/18/2023 11:48 AM Modules accepted: Orders documented in this encounter [facility] 05-18-2023 History of Presen t illness Narrative Images from the original note were not included. [facility] [place] [facility] Department of Cardiovascular Medicine SECTION OF CLINICAL CARDIOLOGY OUTPATIENT VISIT DATE May 18, 2023 OUTPATIENT VISIT TYPE NEW PRIMARY CARE PHYSICIAN: Elvin Wilson DO [address] [place] [address] CHIEF COMPLAINT: Chest Pain HISTORY OF PRESENT ILLNESS: Ms. Ferrara is a 62 year old who presents today for cardiac evaluation. Patient was seen recently by her PCP, she reported left-sided chest tightness, left arm and left shoulder, associated with mild dyspnea. No nausea vomiting no diaphoresis. No orthopnea or PND. She reported occasional palpitation described as fluttering sensation while she was watching TV. No accompanying symptoms such as dizziness lightheadedness near syncope or syncope. No peripheral edema. No previous cardiac related issues. PAST CARDIAC HISTORY: See my detailed impression for past cardiac history. PAST MEDICAL HISTORY Diagnosis Date Abdominal pain, unspecified site Arthritis Benign neoplasm of colon Hypertension, essential 10/11/2021 NAFL (nonalcoholic fatty liver) Osteoarthritis Snoring Unspecified constipation PAST SURGICAL HISTORY Procedure Laterality Date ARTHRP ACETBLR/PROX FEM PROSTC AGRFT/ALGRFT Right 10/24/2017 Hip replacement, total COLONOSCOPY FLX DX W/COLLJ SPEC WHEN PFRMD 08/19/2009 COLONOSCOPY FLX DX W/COLLJ SPEC WHEN PFRMD 10/26/2012 Colonoscopy repeat 3 years COLONOSCOPY FLX DX W/COLLJ SPEC WHEN PFRMD 11/09/2015 Colonoscopy COLONOSCOPY GEN ANES 11/23/2020 Repeat in 5 years EYE SURGERY HX HEMORRHOIDECTOMY INTERNAL RUBBER BAND LIGATIONS 03/05/2010 Hemorrhoidectomy JOINT REPLACEMENT HX LIG/TRNSXJ FLP TUBE ABDL/VAG APPR UNI/BI 1991 Tubal ligation PAST SURGICAL HISTORY OF 1997 tubal reversal PAST SURGICAL HISTORY OF 02/17/2020 Eye Surgery Closed angle Glaucoma SOCIAL HISTORY Social History Tobacco Use Smoking status: Former Packs/day: 2.00 Years: 20.00 Additional pack years: 0.00 Total pack years: 40.00 Types: Cigarettes Quit date: 1996 Years since quittin.7 Smokeless tobacco: Never Vaping Use Vaping Use: Never used Substance Use Topics Alcohol use: No Drug use: No FAMILY HISTORY Problem Relation Age of Onset Cancer Father colon, esophagus, stomach, abdomen None Mother No Known Problems Sister Alcohol/Drug Brother No Known Problems Brother No Known Problems Son No Known Problems Son No Known Problems Son Cancer Maternal Grandmother Lymph node Diabetes Maternal Grandfather type 2 other (Dementia) Paternal Grandmother Colon Cancer Colon Cancer Paternal Grandfather ALLERGIES: ALLERGIES Allergen Reactions Betadine [Povidone-* Intolerance Delayed onset pruritic rash, most likely irritant contact dermatitis Chlorhexidine Gluco* Rash Delayed onset pruritic rash, most likely irritant contact dermatitis MEDICATIONS: ZINC ORAL^Take 50 mg by mouth once daily.^Disp: ^Rfl: nitroglycerin sublingual (NITROQUICK) 0.4 mg SL tablet^Dissolve 1 tablet under the tongue every 5 minutes as needed for chest pain.^Disp: 25 tablet^Rfl: 1 fluticasone (FLONASE) 50 mcg/actuation nasal spray^Use 2 Sprays in each nostril once daily. Rinse mouth after use.^Disp: 1 Each^Rfl: 0 metoprolol succinate ER (TOPROL XL) 25 mg 24 hr tablet^Take 1 tablet by mouth daily in the late morning. At bedtime for hypertension^Disp: 90 tablet^Rfl: 3 MV-Min-Vit Y-Qodt-Nhmfsm-Hb124 (AIRBORNE, LYSINE HCL,) 1,000-50 mg tbef^Take by mouth.^Disp: ^Rfl: cyclobenzaprine (FLEXERIL) 10 mg tablet^Take 1 tablet by mouth at bedtime as needed for muscle spasm or pain.^Disp: 30 tablet^Rfl: 1 cyanocobalamin (VITAMIN B-12) 1,000 mcg tab^Take 1,000 mcg by mouth once daily.^Disp: ^Rfl: Ceramides 1,3,6-11 lotn^Apply to affected area.^Disp: ^Rfl: cholecalciferol (VITAMIN D3) 5,000 unit tab^Take 5,000 Units by mouth once daily.^Disp: ^Rfl: levothyroxine (LEVOXYL) 25 mcg tablet^Take 1 tablet by mouth once daily. Take on empty stomach. For Thyroid^Disp: 30 tablet^Rfl: 2 (Patient not taking: Reported on 05/18/2023) REVIEW OF SYSTEMS: See HPI. I personally interviewed, confirmed and edited the above information if obtained by others. PHYSICAL EXAMINATION: BP 140/86 Pulse 77 Ht 165.5 cm (5' 5.16 ) Wt 106.6 kg (235 lb) LMP 10/20/2016 BMI 38.91 kg/m General: Well appearing, in no acute distress, speaking in complete sentences. Neck: No jugular venous distention, no carotid bruits, carotids have a normal upstroke, no palpable thyromegaly. Lungs: Clear to auscultation bilaterally, no wheezing or rhonchi. Heart: Regular rhythm, PMI not displaced, S1, S2 normal, no S3, no S4, no heaves, no rub and no murmur. Extremities: No peripheral edema . Grade 2/4 distal pulses bilaterally. CARDIOVASCULAR MEDICINE TESTING: EKG: NSR, non specific T wave abnormalities. I have personally reviewed the Electrocardiogram. IMPRESSION: 1. Chest pain with typical and atypical features for angina. Risk factors including postmenopausal, non-smoker, negative family history for ischemic heart disease, CAD mid 60's. 2. Palpitation, R/O arrhythmia. 3. Hypertension, on B Shauna. PLAN AND RECOMMENDATIONS: 1. Increase Toprol XL 50 mg PO daily. 2. Agree with stress test rule out underlying significant ischemic heart disease. 3. 2 weeks ZIO patch 4. Results will be communicated with patient and her PCP. 5. Follow up on if needed bases. CONTACT INFORMATION: Janet Smith M.D. Director, Interventional Cardiology, [facility] Clinical Assessment Clinicianbeer still runner compounder [facility] [employer] [facility] Heart, Vascular and Thoracic [place] [facility] Department of Cardiovascular Medicine [facility] [place] [address] documented in this encounter [facility] 05-12-2023 Note HNO ID: [id number] Author: Elvin Wilson, DO Service: ? Author Type: Physician Type: Progress Notes Filed: 05/17/2023 10:19 PM Note Text: CC: Aurelia Ferrara is a 62 year old female who presents to the office for multiple symptoms HPI: Patient states that recently she has had left arm and shoulder aching and soreness as well as occasional chest pressure and discomfort and dyspnea. No current symptoms, no LH or dizziness or syncope. Also noticed that she had some heart racing up to 109 bpm when she was sitting watching TV, not exertional. She has been trying to walk more for exercise. No known hx of CAD in the past. Has recently had covid 19 infection diagnosed on 04/17 PAST MEDICAL HISTORY Diagnosis Date Abdominal pain, unspecified site Arthritis Benign neoplasm of colon Hypertension, essential 10/11/2021 NAFL (nonalcoholic fatty liver) Osteoarthritis Snoring Unspecified constipation PAST SURGICAL HISTORY Procedure Laterality Date ARTHRP ACETBLR/PROX FEM PROSTC AGRFT/ALGRFT Right 10/24/2017 Hip replacement, total COLONOSCOPY FLX DX W/COLLJ SPEC WHEN PFRMD 08/19/2009 COLONOSCOPY FLX DX W/COLLJ SPEC WHEN PFRMD 10/26/2012 Colonoscopy repeat 3 years COLONOSCOPY FLX DX W/COLLJ SPEC WHEN PFRMD 11/09/2015 Colonoscopy COLONOSCOPY GEN ANES 11/23/2020 Repeat in 5 years EYE SURGERY HX HEMORRHOIDECTOMY INTERNAL RUBBER BAND LIGATIONS 03/05/2010 Hemorrhoidectomy JOINT REPLACEMENT HX LIG/TRNSXJ FLP TUBE ABDL/VAG APPR UNI/BI 1991 Tubal ligation PAST SURGICAL HISTORY OF 1997 tubal reversal PAST SURGICAL HISTORY OF 02/17/2020 Eye Surgery Closed angle Glaucoma Current Outpatient Medications Medication Sig levothyroxine (LEVOXYL) 25 mcg tablet Take 1 tablet by mouth once daily. Take on empty stomach. For Thyroid fluticasone (FLONASE) 50 mcg/actuation nasal spray Use 2 Sprays in each nostril once daily. Rinse mouth after use. metoprolol succinate ER (TOPROL XL) 25 mg 24 hr tablet Take 1 tablet by mouth daily in the late morning. At bedtime for hypertension MV-Min-Vit I-[id number]-Ayqpxu-[id number] (AIRBORNE, LYSINE HCL,) 1,000-50 mg tbef Take by mouth. cyanocobalamin (VITAMIN B-12) 1,000 mcg tab Take 1,000 mcg by mouth once daily. Ceramides 1,3,6-11 lotn Apply to affected area. cholecalciferol (VITAMIN D3) 5,000 unit tab Take 5,000 Units by mouth once daily. nitroglycerin sublingual (NITROQUICK) 0.4 mg SL tablet Dissolve 1 tablet under the tongue every 5 minutes as needed for chest pain. cyclobenzaprine (FLEXERIL) 10 mg tablet Take 1 tablet by mouth at bedtime as needed for muscle spasm or pain. Current Facility-Administered Medications Medication Dose Route Frequency perflutren lipid microspheres 1.3 mL in NaCl (PF) 0.9% 10 mL injection (DEFINITY) INTRAVENOUS DIRECTED PRN sodium chloride 0.9 % (flush) 10 mL (BD POSIFLUSH) 10 mL INTRAVENOUS DIRECTED PRN ALLERGIES Allergen Reactions Betadine [Povidone-* Intolerance Delayed onset pruritic rash, most likely irritant contact dermatitis Chlorhexidine Gluco* Rash Delayed onset pruritic rash, most likely irritant contact dermatitis Social History Tobacco Use Smoking status: Former Packs/day: 2.00 Years: 20.00 Additional pack years: 0.00 Total pack years: 40.00 Types: Cigarettes Quit date: 1996 Years since quittin.7 Smokeless tobacco: Never Vaping Use Vaping Use: Never used Substance Use Topics Alcohol use: No Drug use: No ROS: See HPI PE: BP 134/86 Pulse 72 Temp (Src) 97 (Left Tympanic) Resp 16 Wt 237 lb (107.5kg) LMP 10/20/2016 Gen: AANDOX3, NAD, non-toxic appearing, appears fatigued. HEENT: PERRLA, EOMs intact b/l, nares without drainage, pharynx without erythema, exudate, lesions, or drainage. Uvula midline. Neck: No LAD, no thyromegaly, no meningismus. CV: RRR, 1/6 HSM RUSB soft blowing murmur, normal s1s2 Lungs: CTA b/l, no wheezing Skin: No rashes, lesions, or wounds on exposed skin. No sternal or rib TTP Normal pulses, no edema ASSESSMENT/PLAN: 1. Palpitations - ICD9: 785.1, ICD10: R00.2 (primary diagnosis) ECG today in office, need for ECHO and stress testing as well as d/w her today, concerned for cardiac etiology of symptoms. She is aware to go to EMERGENCY DEPARTMENT if symptoms worsen - ECG COMPLETE - ECHO - PERFLUTREN LIPID MICROSPHERES 1.1 MG/ML INJECTION IN NS 10 ML - SODIUM CHLORIDE 0.9 % (FLUSH) INJECTION SYRINGE - EXERCISE STRESS ECG (WITHOUT IMAGING) - ECG COMPLETE - ECG COMPLETE 2. Tachycardia - ICD9: 785.0, ICD10: R00.0 ECG today in office, need for ECHO and stress testing as well as d/w her today, concerned for cardiac etiology of symptoms. She is aware to go to EMERGENCY DEPARTMENT if symptoms worsen - ECG COMPLETE - ECHO - PERFLUTREN LIPID MICROSPHERES 1.1 MG/ML INJECTION IN NS 10 ML - SODIUM CHLORIDE 0.9 % (FLUSH) INJECTION SYRINGE - EXERCISE STRESS ECG (WITHOUT IMAGING) - ECG COMPLETE - ECG COMP (more content not included)... [facility] 05-12-2023 History of Presen t illness Narrative CC: Aurelia Ferrara is a 62 year old female who presents to the office for multiple symptoms HPI: Patient states that recently she has had left arm and shoulder aching and soreness as well as occasional chest pressure and discomfort and dyspnea. No current symptoms, no LH or dizziness or syncope. Also noticed that she had some heart racing up to 109 bpm when she was sitting watching TV, not exertional. She has been trying to walk more for exercise. No known hx of CAD in the past. Has recently had covid 19 infection diagnosed on 04/17 PAST MEDICAL HISTORY Diagnosis Date Abdominal pain, unspecified site Arthritis Benign neoplasm of colon Hypertension, essential 10/11/2021 NAFL (nonalcoholic fatty liver) Osteoarthritis Snoring Unspecified constipation PAST SURGICAL HISTORY Procedure Laterality Date ARTHRP ACETBLR/PROX FEM PROSTC AGRFT/ALGRFT Right 10/24/2017 Hip replacement, total COLONOSCOPY FLX DX W/COLLJ SPEC WHEN PFRMD 08/19/2009 COLONOSCOPY FLX DX W/COLLJ SPEC WHEN PFRMD 10/26/2012 Colonoscopy repeat 3 years COLONOSCOPY FLX DX W/COLLJ SPEC WHEN PFRMD 11/09/2015 Colonoscopy COLONOSCOPY GEN ANES 11/23/2020 Repeat in 5 years EYE SURGERY HX HEMORRHOIDECTOMY INTERNAL RUBBER BAND LIGATIONS 03/05/2010 Hemorrhoidectomy JOINT REPLACEMENT HX LIG/TRNSXJ FLP TUBE ABDL/VAG APPR UNI/BI 1991 Tubal ligation PAST SURGICAL HISTORY OF 1997 tubal reversal PAST SURGICAL HISTORY OF 02/17/2020 Eye Surgery Closed angle Glaucoma Current Outpatient Medications Medication Sig levothyroxine (LEVOXYL) 25 mcg tablet Take 1 tablet by mouth once daily. Take on empty stomach. For Thyroid fluticasone (FLONASE) 50 mcg/actuation nasal spray Use 2 Sprays in each nostril once daily. Rinse mouth after use. metoprolol succinate ER (TOPROL XL) 25 mg 24 hr tablet Take 1 tablet by mouth daily in the late morning. At bedtime for hypertension MV-Min-Vit U-Wdgu-Qgxses-Hb124 (AIRBORNE, LYSINE HCL,) 1,000-50 mg tbef Take by mouth. cyanocobalamin (VITAMIN B-12) 1,000 mcg tab Take 1,000 mcg by mouth once daily. Ceramides 1,3,6-11 lotn Apply to affected area. cholecalciferol (VITAMIN D3) 5,000 unit tab Take 5,000 Units by mouth once daily. nitroglycerin sublingual (NITROQUICK) 0.4 mg SL tablet Dissolve 1 tablet under the tongue every 5 minutes as needed for chest pain. cyclobenzaprine (FLEXERIL) 10 mg tablet Take 1 tablet by mouth at bedtime as needed for muscle spasm or pain. Current Facility-Administered Medications Medication Dose Route Frequency perflutren lipid microspheres 1.3 mL in NaCl (PF) 0.9% 10 mL injection (DEFINITY) INTRAVENOUS DIRECTED PRN sodium chloride 0.9 % (flush) 10 mL (BD POSIFLUSH) 10 mL INTRAVENOUS DIRECTED PRN ALLERGIES Allergen Reactions Betadine [Povidone-* Intolerance Delayed onset pruritic rash, most likely irritant contact dermatitis Chlorhexidine Gluco* Rash Delayed onset pruritic rash, most likely irritant contact dermatitis Social History Tobacco Use Smoking status: Former Packs/day: 2.00 Years: 20.00 Additional pack years: 0.00 Total pack years: 40.00 Types: Cigarettes Quit date: 1996 Years since quittin.7 Smokeless tobacco: Never Vaping Use Vaping Use: Never used Substance Use Topics Alcohol use: No Drug use: No ROS: See HPI PE: BP 134/86 Pulse 72 Temp (Src) 97 (Left Tympanic) Resp 16 Wt 237 lb (107.5kg) LMP 10/20/2016 Gen: A&OX3, NAD, non-toxic appearing, appears fatigued. HEENT: PERRLA, EOMs intact b/l, nares without drainage, pharynx without erythema, exudate, lesions, or drainage. Uvula midline. Neck: No LAD, no thyromegaly, no meningismus. CV: RRR, 1/6 HSM RUSB soft blowing murmur, normal s1s2 Lungs: CTA b/l, no wheezing Skin: No rashes, lesions, or wounds on exposed skin. No sternal or rib TTP Normal pulses, no edema ASSESSMENT/PLAN: 1. Palpitations - ICD9: 785.1, ICD10: R00.2 (primary diagnosis) ECG today in office, need for ECHO and stress testing as well as d/w her today, concerned for cardiac etiology of symptoms. She is aware to go to EMERGENCY DEPARTMENT if symptoms worsen - ECG COMPLETE - ECHO - PERFLUTREN LIPID MICROSPHERES 1.1 MG/ML INJECTION IN NS 10 ML - SODIUM CHLORIDE 0.9 % (FLUSH) INJECTION SYRINGE - EXERCISE STRESS ECG (WITHOUT IMAGING) - ECG COMPLETE - ECG COMPLETE 2. Tachycardia - ICD9: 785.0, ICD10: R00.0 ECG today in office, need for ECHO and stress testing as well as d/w her today, concerned for cardiac etiology of symptoms. She is aware to go to EMERGENCY DEPARTMENT if symptoms worsen - ECG COMPLETE - ECHO - PERFLUTREN LIPID MICROSPHERES 1.1 MG/ML INJECTION IN NS 10 ML - SODIUM CHLORIDE 0.9 % (FLUSH) INJECTION SYRINGE - EXERCISE STRESS ECG (WITHOUT IMAGING) - ECG COMPLETE - ECG COMPLETE 3. Other chest pain - ICD9: 786.59, ICD10: R07.89 ECG today in office, need for ECHO and stress testing as well as d/w her today, concerned for cardiac etiology of symptoms. She is aware to go to EMERGENCY DEPARTMENT if symptoms worsen - ECG COMPLETE - ECHO - PERFLUTREN LIPID MICROSPHERES 1.1 MG/ML INJECTION IN NS 10 ML - SODIUM CHLORIDE 0.9 % (FLUSH) INJECTION SYRINGE - EXERCISE STRESS ECG (WITHOUT IMAGING) - ECG COMPLETE - ECG COMPLETE 4. Mild tricuspid regurgitation by prior echocardiogram - ICD9: 397.0, ICD10: I07.1 ECG today in office, need for ECHO and stress testing as well as d/w her today, concerned for cardiac etiology of symptoms. She is aware to go to EMERGENCY DEPARTMENT if symptoms worsen - ECG COMPLETE - ECHO - PERFLUTREN LIPID MICROSPHERES 1.1 MG/ML INJECTION IN NS 10 ML - SODIUM CHLORIDE 0.9 % (FLUSH) INJECTION SYRINGE - EXERCISE STRESS ECG (WITHOUT IMAGING) - ECG COMPLETE - ECG COMPLETE 5. BORDEN (dyspnea on exertion) - ICD9: 786.09, ICD10: R06.09 ECG today in office, need for ECHO and stress testing as well as d/w her today, concerned for cardiac etiology of symptoms. She is aware to go to EMERGENCY DEPARTMENT if symptoms worsen - ECG COMPLETE - ECHO - PERFLUTREN LIPID MICROSPHERES 1.1 MG/ML INJECTION IN NS 10 ML - SODIUM CHLORIDE 0.9 % (FLUSH) INJECTION SYRINGE - EXERCISE STRESS ECG (WITHOUT IMAGING) - ECG COMPLETE - ECG COMPLETE Elvin Wilson DO Return if no improvement. Follow up with Elvin Wilson DO. To ER if develops chest pain, shortness of breath Discussed risks, benefits, alternatives, and potential side effects of medications. Patient/Guardian expressed understanding and agreed with the plan. See patient instructions. Elvin Wilson DO [address] [place] [address] documented in this encounter [facility] 04-18-2023 Note HNO ID: [id number] Author: Juana Canas PA-C Service: ? Author Type: Physician Telecom Field Technician Type: Progress Notes Filed: 04/18/2023 7:46 AM Note Text: This note was created using Magtonriter. Subjective Aurelia Ferrara is a 62 year old female. HPI Patient presents with a chief complaint of cough, sore throat, body aches over the past 3 days. She was exposed to COVID. She did do a home test which was negative. Denies vomiting or diarrhea. She has had COVID 1 time previously. She is up-to-date on vaccines. No chest pain or shortness of breath. Review of Systems Constitutional: Positive for fatigue and fever. HENT: Positive for congestion, ear pain, postnasal drip and sore throat. Respiratory: Positive for cough. Negative for shortness of breath and wheezing. Cardiovascular: Negative. Gastrointestinal: Negative. Genitourinary: Negative. Musculoskeletal: Positive for myalgias. All other systems reviewed and are negative. PAST MEDICAL HISTORY Diagnosis Date Abdominal pain, unspecified site Arthritis Benign neoplasm of colon Hypertension, essential 10/11/2021 NAFL (nonalcoholic fatty liver) Osteoarthritis Snoring Unspecified constipation Current Outpatient Medications Medication Sig Dispense Refill levothyroxine (LEVOXYL) 25 mcg tablet Take 1 tablet by mouth once daily. Take on empty stomach. For Thyroid 30 tablet 2 fluticasone (FLONASE) 50 mcg/actuation nasal spray Use 2 Sprays in each nostril once daily. Rinse mouth after use. 1 Each 0 metoprolol succinate ER (TOPROL XL) 25 mg 24 hr tablet Take 1 tablet by mouth daily in the late morning. At bedtime for hypertension 90 tablet 3 MV-Min-Vit [id number] (AIR[place]NE, LYSINE HCL,) 1,000-50 mg tbef Take by mouth. cyanocobalamin (VITAMIN B-12) 1,000 mcg tab Take 1,000 mcg by mouth once daily. Ceramides 1,3,6-11 lotn Apply to affected area. cholecalciferol (VITAMIN D3) 5,000 unit tab Take 5,000 Units by mouth once daily. cyclobenzaprine (FLEXERIL) 10 mg tablet Take 1 tablet by mouth at bedtime as needed for muscle spasm or pain. 30 tablet 1 No current facility-administered medications for this visit. PAST SURGICAL HISTORY Procedure Laterality Date ARTHRP ACETBLR/PROX FEM PROSTC AGRFT/ALGRFT Right 10/24/2017 Hip replacement, total COLONOSCOPY FLX DX W/COLLJ SPEC WHEN PFRMD 08/19/2009 COLONOSCOPY FLX DX W/COLLJ SPEC WHEN PFRMD 10/26/2012 Colonoscopy repeat 3 years COLONOSCOPY FLX DX W/COLLJ SPEC WHEN PFRMD 11/09/2015 Colonoscopy COLONOSCOPY GEN ANES 11/23/2020 Repeat in 5 years EYE SURGERY HX HEMORRHOIDECTOMY INTERNAL RUBBER BAND LIGATIONS 03/05/2010 Hemorrhoidectomy JOINT REPLACEMENT HX LIG/TRNSXJ FLP TUBE ABDL/VAG APPR UNI/BI 1991 Tubal ligation PAST SURGICAL HISTORY OF 1997 tubal reversal PAST SURGICAL HISTORY OF 02/17/2020 Eye Surgery Closed angle Glaucoma FAMILY HISTORY Problem Relation Age of Onset Cancer Father colon, esophagus, stomach, abdomen None Mother No Known Problems Sister Alcohol/Drug Brother No Known Problems Brother No Known Problems Son No Known Problems Son No Known Problems Son Cancer Maternal Grandmother Lymph node Diabetes Maternal Grandfather type 2 other (Dementia) Paternal Grandmother Colon Cancer Colon Cancer Paternal Grandfather Social History Tobacco Use Smoking status: Former Packs/day: 2.00 Years: 20.00 Additional pack years: 0.00 Total pack years: 40.00 Types: Cigarettes Quit date: 1996 Years since quittin.6 Smokeless tobacco: Never Vaping Use Vaping Use: Never used Substance Use Topics Alcohol use: No Drug use: No Objective BP 146/78 Pulse 94 Temp 37.6 ?C (99.6 ?F) Resp 20 Wt 106.9 kg (235 lb 9.6 oz) LMP 10/20/2016 SpO2 99% BMI 39.01 kg/m? Physical Exam Vitals reviewed. Constitutional: Appearance: Normal appearance. She is not ill-appearing. HENT: Head: Normocephalic and atraumatic. Right Ear: Tympanic membrane, ear canal and external ear normal. Left Ear: Tympanic membrane, ear canal and external ear normal. Nose: Congestion present. Mouth/Throat: Mouth: Mucous membranes are moist. Pharynx: Oropharynx is clear. Cardiovascular: Rate and Rhythm: Normal rate and regular rhythm. Heart sounds: Normal heart sounds. Pulmonary: Effort: Pulmonary effort is normal. Breath sounds: Normal breath sounds. Musculoskeletal: Cervical back: Neck supple. Lymphadenopathy: Cervical: Cervical adenopathy present. Skin: General: Skin is warm and dry. Neurological: Mental Status: She is alert. Assessment and Plan ASSESSMENT/PLAN: 1. Acute URI - ICD9: 465.9, ICD10: J06.9 - Discussed viral etiology and rationale for treatment. - Symptomatic treatment with prn analgesia - Supportive care with fluids and rest - Follow up in 3-5 days if symptoms persist or sooner if worsening of symptoms - STREP A MOLECULAR (POC) - COVID WITH FLUA+B, ROUTINE Juana Canas PA-C [facility] 04-18-2023 Miscellaneous Notes I called and discussed positive COVID with patient. Discussed quarantine. She was interested in oral antiviral medication. Discussed risk and benefit. Patient would like Paxlovid. This was called into her pharmacy. documented in this encounter [facility] 04-18-2023 History of Presen t illness Narrative This note was created using Magtonriter. Subjective Aurelia Ferrara is a 62 year old female. HPI Patient presents with a chief complaint of cough, sore throat, body aches over the past 3 days. She was exposed to COVID. She did do a home test which was negative. Denies vomiting or diarrhea. She has had COVID 1 time previously. She is up-to-date on vaccines. No chest pain or shortness of breath. Review of Systems Constitutional: Positive for fatigue and fever. HENT: Positive for congestion, ear pain, postnasal drip and sore throat. Respiratory: Positive for cough. Negative for shortness of breath and wheezing. Cardiovascular: Negative. Gastrointestinal: Negative. Genitourinary: Negative. Musculoskeletal: Positive for myalgias. All other systems reviewed and are negative. PAST MEDICAL HISTORY Diagnosis Date Abdominal pain, unspecified site Arthritis Benign neoplasm of colon Hypertension, essential 10/11/2021 NAFL (nonalcoholic fatty liver) Osteoarthritis Snoring Unspecified constipation Current Outpatient Medications Medication Sig Dispense Refill levothyroxine (LEVOXYL) 25 mcg tablet Take 1 tablet by mouth once daily. Take on empty stomach. For Thyroid 30 tablet 2 fluticasone (FLONASE) 50 mcg/actuation nasal spray Use 2 Sprays in each nostril once daily. Rinse mouth after use. 1 Each 0 metoprolol succinate ER (TOPROL XL) 25 mg 24 hr tablet Take 1 tablet by mouth daily in the late morning. At bedtime for hypertension 90 tablet 3 MV-Min-Vit [id number] (AIR[place]NE, LYSINE HCL,) 1,000-50 mg tbef Take by mouth. cyanocobalamin (VITAMIN B-12) 1,000 mcg tab Take 1,000 mcg by mouth once daily. Ceramides 1,3,6-11 lotn Apply to affected area. cholecalciferol (VITAMIN D3) 5,000 unit tab Take 5,000 Units by mouth once daily. cyclobenzaprine (FLEXERIL) 10 mg tablet Take 1 tablet by mouth at bedtime as needed for muscle spasm or pain. 30 tablet 1 No current facility-administered medications for this visit. PAST SURGICAL HISTORY Procedure Laterality Date ARTHRP ACETBLR/PROX FEM PROSTC AGRFT/ALGRFT Right 10/24/2017 Hip replacement, total COLONOSCOPY FLX DX W/COLLJ SPEC WHEN PFRMD 08/19/2009 COLONOSCOPY FLX DX W/COLLJ SPEC WHEN PFRMD 10/26/2012 Colonoscopy repeat 3 years COLONOSCOPY FLX DX W/COLLJ SPEC WHEN PFRMD 11/09/2015 Colonoscopy COLONOSCOPY GEN ANES 11/23/2020 Repeat in 5 years EYE SURGERY HX HEMORRHOIDECTOMY INTERNAL RUBBER BAND LIGATIONS 03/05/2010 Hemorrhoidectomy JOINT REPLACEMENT HX LIG/TRNSXJ FLP TUBE ABDL/VAG APPR UNI/BI 1991 Tubal ligation PAST SURGICAL HISTORY OF 1997 tubal reversal PAST SURGICAL HISTORY OF 02/17/2020 Eye Surgery Closed angle Glaucoma FAMILY HISTORY Problem Relation Age of Onset Cancer Father colon, esophagus, stomach, abdomen None Mother No Known Problems Sister Alcohol/Drug Brother No Known Problems Brother No Known Problems Son No Known Problems Son No Known Problems Son Cancer Maternal Grandmother Lymph node Diabetes Maternal Grandfather type 2 other (Dementia) Paternal Grandmother Colon Cancer Colon Cancer Paternal Grandfather Social History Tobacco Use Smoking status: Former Packs/day: 2.00 Years: 20.00 Additional pack years: 0.00 Total pack years: 40.00 Types: Cigarettes Quit date: 1996 Years since quittin.6 Smokeless tobacco: Never Vaping Use Vaping Use: Never used Substance Use Topics Alcohol use: No Drug use: No Objective BP 146/78 Pulse 94 Temp 37.6 C (99.6 F) Resp 20 Wt 106.9 kg (235 lb 9.6 oz) LMP 10/20/2016 SpO2 99% BMI 39.01 kg/m Physical Exam Vitals reviewed. Constitutional: Appearance: Normal appearance. She is not ill-appearing. HENT: Head: Normocephalic and atraumatic. Right Ear: Tympanic membrane, ear canal and external ear normal. Left Ear: Tympanic membrane, ear canal and external ear normal. Nose: Congestion present. Mouth/Throat: Mouth: Mucous membranes are moist. Pharynx: Oropharynx is clear. Cardiovascular: Rate and Rhythm: Normal rate and regular rhythm. Heart sounds: Normal heart sounds. Pulmonary: Effort: Pulmonary effort is normal. Breath sounds: Normal breath sounds. Musculoskeletal: Cervical back: Neck supple. Lymphadenopathy: Cervical: Cervical adenopathy present. Skin: General: Skin is warm and dry. Neurological: Mental Status: She is alert. Assessment and Plan ASSESSMENT/PLAN: 1. Acute URI - ICD9: 465.9, ICD10: J06.9 - Discussed viral etiology and rationale for treatment. - Symptomatic treatment with prn analgesia - Supportive care with fluids and rest - Follow up in 3-5 days if symptoms persist or sooner if worsening of symptoms - STREP A MOLECULAR (POC) - COVID WITH FLUA+B, ROUTINE Juana Canas PA-C documented in this encounter [facility] 04-17-2023 Note Education (NUTRWS) AURELIA FERRARA ([id number]) 1960 F NFR Date Time Provider Department 04/17/23 1:45 PM ORIANA MARTINEZ Reason for Visit: Patient Education [91] Assessment [673] Primary Visit Diagnosis:Obesity, Class II, BMI 35-39.9 [E66.9] Other Visit Diagnoses:Dyslipidemia [E78.5] 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] Impaired fasting glucose [R73.01] Dietary counseling [Z71.3] During your visit today, we recorded the following information about you: Weight Height 106.3 kg 1.655 m Allergies As of Date: 04/17/2023 Noted Allergy Reaction BETADINE (POVIDONE-IODINE) 06/13/2019 5 - Intolerance Comments: Delayed onset pruritic rash, most likely irritant contact dermatitis CHLORHEXIDINE GLUCONATE 06/13/2019 2 - Rash Comments: Delayed onset pruritic rash, most likely irritant contact dermatitis Date Reviewed: 04/17/2023 Reviewed by: Ninfa Murcia MA - Fully Assessed Prescriptions as of 04/20/2023 - nirmatrelvir tablet 300 mg (150 mg x 2) and ritonavir tablet 100 mg in a dose pack (PAXLOVID) Administer TWO pink nirmatrelvir 150 mg tablets and ONE white ritonavir 100 mg tablet for a total of three tablets twice daily. - levothyroxine (LEVOXYL) 25 mcg tablet Take 1 tablet by mouth once daily. Take on empty stomach. For Thyroid - fluticasone (FLONASE) 50 mcg/actuation nasal spray Use 2 Sprays in each nostril once daily. Rinse mouth after use. - metoprolol succinate ER (TOPROL XL) 25 mg 24 hr tablet Take 1 tablet by mouth daily in the late morning. At bedtime for hypertension - MV-Min-Vit [id number] (AIRBORNE, LYSINE HCL,) 1,000-50 mg tbef Take by mouth. - cyclobenzaprine (FLEXERIL) 10 mg tablet Take 1 tablet by mouth at bedtime as needed for muscle spasm or pain. - cyanocobalamin (VITAMIN B-12) 1,000 mcg tab Take 1,000 mcg by mouth once daily. - Ceramides 1,3,6-11 lotn Apply to affected area. - cholecalciferol (VITAMIN D3) 5,000 unit tab Take 5,000 Units by mouth once daily. Encounter Status:Closed by ORIANA MARTINEZ on 04/17/23 [facility] 04-17-2023 Note HNO ID: [id number] Author: Oriana Martinez RD Service: ? Author Type: Registered Dietitian Type: Progress Notes Filed: 04/17/2023 2:47 PM Note Text: Nutrition Therapy Initial Assessment Nutrition Diagnosis: Overweight/obesity, related to, excess energy intake and physical inactivity, as evidenced by BMI above normative standard for age and gender. RECOMMENDED MALNUTRITION DIAGNOSIS: NO MALNUTRITION IDENTIFIED NUTRITION CARE PLAN Nutrition Intervention 04/17/2023: modify type and amount of food or beverage Add in regular exercise aim for 30 min cardio most days and 2 days of weight resistance (youtube videos Miles Schwarz and Eleanor Vail) All beverages calorie free and sugar free Rec 1400 calories for weight loss ,aim for 400 calories and breakfast and lunch and 600 at dinner. 1400 calorie moderate protein plan for weight loss Recommended patterns: 2 fresh fruit, 1 milk/dairy, 4 starches, 14 oz protein and 5 fat choices, non starchy vegetables free but at least 4 servings daily. Choose Lean protein, fat free dairy only Choose High fiber whole grain breads and cereals Watch portion sizes of fats carefully, choose unsaturated fats, avoid trans and saturated fats Weight and measure servings sizes. Keep accurate food log bring to next appointment. Nutrition Monitoring AND Evaluation: 1-2 lb weight loss per week Need for Follow up: 4-6 weeks Patient presents for initial MNT as relates to class 2 obesity Body mass index is 38.8 kg/m?. Other medical hypothyroidism, HTN, impaired fasting glucose, fatty liver, dyslipidemia. Had success in the past with a meal plan and exercise, had success with WW . Highest weight current, lowest adult weight 125 before kids, maintained 150-160 range after kids with a goal weight 160 range. Intake noted for eating three meals and three snacks. If does not pack a breakfast will have larger fast food breakfast. Includes frequent sweets, includes regular soda daily. No regular exercise and generally sedentary during the day. Patient's symptoms are: Weight Concerns: failure to lose weight Diet History: Breakfast - home: egg whites, turkey sausage and cheese; coke; if work 2 edmondson egg and cheese croissand whiches and coke Snack - protein pack or yogurt Lunch - Every Plate meals Snack - yes, Junk: chocolate Dinner - Every Plate meals Snack - ice cream, popcorn Beverages - unsweet tea, reg coke, water Alcohol- no Vitamins/Supplements - B12, 3, MVI, Fiber gummy, chewy airborne, vit D Activity: Activities of Daily Living: Sedentary (Desk job, seated for most of the day) Additional Activity: Sedentary (Little or no exercise: <1x/week) None at present Anthropometrics: Height: Last 1 Encounter Ht Readings: Date: Ht: 04/17/2023 165.5 cm (5' 5.16 ) Current weight: Last 1 Encounter Wt Readings: Date: Wt: 04/17/2023 106.3 kg (234 lb 4.8 oz) Body mass index is 38.8 kg/m?. Resting Metabolic Rate: 1639 Malnutrition Screening Significant unintentional weight loss? No Eating less than 75% of usual intake for more than 2 weeks? No Potential Signs of Inflammation: no identifiable sources Education Materials Provided: Carbohydrate-Control Plan for Weight Management READINESS TO LEARN Cognitive ability: Alert and oriented Motivation to learn: Interested Family support: Unable to assess - Family not present Instruction provided to: Patient Patient learns best by: Individual Instruction Factors affecting learning: None Physical limitations affecting learning: None Referred/Supervised by: Steve/Rafa WILSON Billing Type: Initial Assess/15 min 3 units SIGNATURE: Oriana Martinez RD PATIENT NAME: Aurelia Ferrara DATE: April 17, 2023 TIME: 1:41 PM [facility] 04-17-[address] - 04/17/2023 2:15 PM EDT Add in regular exercise aim for 30 min cardio most days and 2 days of weight resistance (Apps & [employer] videos Miles Schwarz and Eleanor V[place]) All beverages calorie free and sugar free Rec 1400 calories for weight loss ,aim for 400 calories and breakfast and lunch and 600 at dinner. 1400 calorie moderate protein plan for weight loss Recommended patterns: 2 fresh fruit, 1 milk/dairy, 4 starches, 14 oz protein and 5 fat choices, non starchy vegetables free but at least 4 servings daily. Choose Lean protein, fat free dairy only Choose High fiber whole grain breads and cereals Watch portion sizes of fats carefully, choose unsaturated fats, avoid trans and saturated fats Weight and measure servings sizes. Keep accurate food log bring to next appointment documented in this encounter [facility] 04-17-2023 History of Presen t illness Narrative Nutrition Therapy Initial Assessment Nutrition Diagnosis: Overweight/obesity, related to, excess energy intake and physical inactivity, as evidenced by BMI above normative standard for age and gender. RECOMMENDED MALNUTRITION DIAGNOSIS: NO MALNUTRITION IDENTIFIED NUTRITION CARE PLAN Nutrition Intervention 04/17/2023: modify type and amount of food or beverage Add in regular exercise aim for 30 min cardio most days and 2 days of weight resistance (Apps & Zertstube videos Miles Schwarz and Eleanor Vail) All beverages calorie free and sugar free Rec 1400 calories for weight loss ,aim for 400 calories and breakfast and lunch and 600 at dinner. 1400 calorie moderate protein plan for weight loss Recommended patterns: 2 fresh fruit, 1 milk/dairy, 4 starches, 14 oz protein and 5 fat choices, non starchy vegetables free but at least 4 servings daily. Choose Lean protein, fat free dairy only Choose High fiber whole grain breads and cereals Watch portion sizes of fats carefully, choose unsaturated fats, avoid trans and saturated fats Weight and measure servings sizes. Keep accurate food log bring to next appointment. Nutrition Monitoring & Evaluation: 1-2 lb weight loss per week Need for Follow up: 4-6 weeks Patient presents for initial MNT as relates to class 2 obesity Body mass index is 38.8 kg/m . Other medical hypothyroidism, HTN, impaired fasting glucose, fatty liver, dyslipidemia. Had success in the past with a meal plan and exercise, had success with WW . Highest weight current, lowest adult weight 125 before kids, maintained 150-160 range after kids with a goal weight 160 range. Intake noted for eating three meals and three snacks. If does not pack a breakfast will have larger fast food breakfast. Includes frequent sweets, includes regular soda daily. No regular exercise and generally sedentary during the day. Patient's symptoms are: Weight Concerns: failure to lose weight Diet History: Breakfast - home: egg whites, turkey sausage and cheese; coke; if work 2 [place] egg and cheese croissand whiches and coke Snack - protein pack or yogurt Lunch - Every Plate meals Snack - yes, Junk: chocolate Dinner - Every Plate meals Snack - ice cream, popcorn Beverages - unsweet tea, reg coke, water Alcohol- no Vitamins/Supplements - B12, 3, MVI, Fiber gummy, chewy airborne, vit D Activity: Activities of Daily Living: Sedentary (Desk job, seated for most of the day) Additional Activity: Sedentary (Little or no exercise: <1x/week) None at present Anthropometrics: Height: Last 1 Encounter Ht Readings: Date: Ht: 04/17/2023 165.5 cm (5' 5.16 ) Current weight: Last 1 Encounter Wt Readings: Date: Wt: 04/17/2023 106.3 kg (234 lb 4.8 oz) Body mass index is 38.8 kg/m . Resting Metabolic Rate: 1639 Malnutrition Screening Significant unintentional weight loss? No Eating less than 75% of usual intake for more than 2 weeks? No Potential Signs of Inflammation: no identifiable sources Education Materials Provided: Carbohydrate-Control Plan for Weight Management READINESS TO LEARN Cognitive ability: Alert and oriented Motivation to learn: Interested Family support: Unable to assess - Family not present Instruction provided to: Patient Patient learns best by: Individual Instruction Factors affecting learning: None Physical limitations affecting learning: None Referred/Supervised by: Steve/Rafa WILSON Billing Type: Initial Assess/15 min 3 units SIGNATURE: Oriana Martinez RD PATIENT NAME: Aurelia Ferrara DATE: April 17, 2023 TIME: 1:41 PM documented in this encounter [facility] 03-17-2023 Miscellaneous Notes Pt notified of provider's message and verbalizes understanding. Annie Alaniz LPN Let patient know thyroid labs ok. Refill of medication sent in. The following approved medication requests have been transmitted electronically. Requested Prescriptions Signed Prescriptions Disp Refills levothyroxine (LEVOXYL) 25 mcg tablet 30 tablet 2 Sig: Take 1 tablet by mouth once daily. Take on empty stomach. For Thyroid Authorizing Provider: KANU LOPEZ MD Patient calling she completed her thyroid lab work on 03/14 and has one pill Levothyroxine left. Aware PCP is out of office, sending request to [employer] to review. Pending rx to file to [facility] pharmacy. Please advise Component Latest Ref Rng & Units 03/14/2023 TSH 0.270 - 4.200 mIU/L 2.930 T3 79 - 165 ng/dL 122 Free T4 0.9 - 1.7 ng/dL 1.2 Patient has been identified by name and date of : Patient phones for refill(s): Requested Prescriptions Pending Prescriptions Disp Refills levothyroxine (LEVOXYL) 25 mcg tablet 30 tablet 2 Sig: Take 1 tablet by mouth once daily. Take on empty stomach. For Thyroid Date of last office visit in primary care: 01/20/2023 Last 2 Encounter Wt Readings: Date: Wt: 01/20/2023 107 kg (236 lb) 01/14/2023 105.2 kg (232 lb) Previous labs/tests for medication: Thyroid: TSH Date Value 03/14/2023 2.930 mIU/L 10/05/2021 2.000 uU/mL Please advise. Thank you. Anita Taylor LPN documented in this encounter [facility] 02-02-2023 History of Presen t illness Narrative Images from the original note were not included. 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 Trupti watts [facility] HPI Aurelia Ferrara is a 62 y.o. right handed female that presents for evaluation of a contracture and lump in the palm in her LEFT Middle finger MCP joint palmar aspect and Ring finger MCP joint palmar aspect. Symptoms have been present for 1 year(s). The symptoms started gradually over time, patient feels that she is noticing it more and more lately. Patient reports that it is more uncomfortable when driving. Patient is not diabetic. Patient also states that she jammed her left index finger a long time ago while moving and it gets stuck every once in a while. Pain Characteristics Described as tightness and stiffness Worse with driving Alleviated nothing Severity moderate Previous Treatments NSAIDs: No - Have not tried Injection: No - Has never received an injection Therapy: No - Has not attempted formal therapy Splinting: No - Has not tried any splinting Surgery: No - Has not had previous surgery on the symptomatic extremity MRI: No Has not had an MRI Both brothers have significant Dupuytren's contractures. No results found for: HGBA1C No past surgical history on file. No past medical history on file. Allergies Allergen Reactions Iodine Other reaction(s): Other Povidone-Iodine Other reaction(s): Intolerance Delayed onset pruritic rash, most likely irritant contact dermatitis Chlorhexidine Rash Other reaction(s): Other Delayed onset pruritic rash, most likely irritant contact dermatitis Current Outpatient Medications Medication Sig Dispense Refill fluticasone (Flonase) 50 MCG/ACT nasal spray instill 2 sprays into each nostril once daily then Rinse mouth after use levothyroxine (Synthroid, Levoxyl) 25 MCG tablet take 1 tablet by mouth once daily ON AN EMPTY STOMACH for THYROID metoprolol succinate XL (Toprol-XL) 25 MG 24 hr tablet 1.5 tabs daily Multiple Vitamins-Minerals (Airborne) effervescent tablet Take by mouth. No current facility-administered medications for this visit. OBJECTIVE BP 137/84 Pulse 83 Ht 5' 6 (1.676 m) Wt 230 lb (104 kg) BMI 37.12 kg/m Ortho Exam Focused Exam of the LEFT Upper Extremity Palpable cord: POSITIVE Tabletop test: negative Clinical image(s): None taken LEFT long finger, ring finger MCP (nl 0-45 H/90 ) PIP (nl 0 /100 ) DIP (nl 0 -80 ) Tip to Palm EXTENSION 0 0 0 FLEXION 90 100 80 able to contact *(Passive values entered only if different than active; otherwise = AROM) IMAGING Plain films were reviewed from outside disc. LEFT Hand 2V no fracture dislocation or foreign body appreciated PROCEDURE none ASSESSMENT 1. Dupuytren's contracture of left hand 2. Trigger index finger PLAN I discussed with Aurelia the natural history, expected outcome, and risks/benefits of both operative and nonoperative management of her particular diagnosis relative to her age, activity level, previous treatment, and physical exam. Aurelia had some excellent questions, all of which were answered to her satisfaction. Aurelia elected to proceed with conservative treatment at this time. Patient encouraged at this time to observe the hand and fingers daily and self assessing with the table top test and to call for follow up if she becomes unable to lay the hand flat on the table. The above diagnosis has been present for greater than 1 year I did thoroughly review previous notes from other providers including myself, previous imaging, as well as pertinent testing including X-rays Today's treatment plan includes Observation Follow-up: Aurelia will followup with me on an as needed basis. She knows to call the office with any questions or concerns in the interim. Future Imaging: NONE Isidro Stroud MD Hand, Plastic, and Reconstructive Surgery [facility] Department of Orthopedics and Sports Medicine 02/02/2023 at 2:10 PM (Please note that portions of this note may have been completed with a voice recognition program. Efforts were made to edit the dictations but occasionally words are mis-transcribed.) documented in this encounter [facility] 02-01-2023 Note ----- Message from Kacie Wright MD sent at 01/31/2023 8:06 AM EDT ----- Regarding: dupuytrens Faheem referral for dupuytrens. Can send these ones to Isidro. He is OK with it [facility] 01-26-2023 Note HNO ID: [id number] Author: Elvin Wilson, DO Service: ? Author Type: Physician Type: Progress Notes Filed: 01/26/2023 12:00 PM Note Text: CC: Aurelia Ferrara is a 62 year old female who presents to the office for follow up HPI: URI symptoms, sinus pressure and headaches and PND symptoms, no fevers or chills. Symptoms x weeks, + sick contacts. Has tried supplements/OTC medications. Hand tremor symptoms, about 1 year, stable Left hand duputreyns changes, has been seen by Efra Marquis at Orthopedics office and is going to be seeing hand specialist in [place] Dr. Ortega on 02/02 for intervention due to limiting her use. Hx of isthmus nodule, recent thyroid US on 10/2022 without mention of nodule on isthmus, only showing results as below NODULE 1: Location: Right mid, posteriorly Size: 0.4 x 0.4 x 0.5 cm PAST MEDICAL HISTORY Diagnosis Date Abdominal pain, unspecified site Arthritis Benign neoplasm of colon Hypertension, essential 10/11/2021 NAFL (nonalcoholic fatty liver) Osteoarthritis Snoring Unspecified constipation PAST SURGICAL HISTORY Procedure Laterality Date ARTHRP ACETBLR/PROX FEM PROSTC AGRFT/ALGRFT Right 10/24/2017 Hip replacement, total COLONOSCOPY FLX DX W/COLLJ SPEC WHEN PFRMD 08/19/2009 COLONOSCOPY FLX DX W/COLLJ SPEC WHEN PFRMD 10/26/2012 Colonoscopy repeat 3 years COLONOSCOPY FLX DX W/COLLJ SPEC WHEN PFRMD 11/09/2015 Colonoscopy COLONOSCOPY GEN ANES 11/23/2020 Repeat in 5 years EYE SURGERY HX HEMORRHOIDECTOMY INTERNAL RUBBER BAND LIGATIONS 03/05/2010 Hemorrhoidectomy JOINT REPLACEMENT HX LIG/TRNSXJ FLP TUBE ABDL/VAG APPR UNI/BI 1991 Tubal ligation PAST SURGICAL HISTORY OF 1997 tubal reversal PAST SURGICAL HISTORY OF 02/17/2020 Eye Surgery Closed angle Glaucoma Current Outpatient Medications Medication Sig fluticasone (FLONASE) 50 mcg/actuation nasal spray Use 2 Sprays in each nostril once daily. Rinse mouth after use. levothyroxine (LEVOXYL) 25 mcg tablet Take 1 tablet by mouth once daily. Take on empty stomach. For Thyroid metoprolol succinate ER (TOPROL XL) 25 mg 24 hr tablet Take 1 tablet by mouth daily in the late morning. At bedtime for hypertension MV-Min-Vit [id number] (AIRBORNE, LYSINE HCL,) 1,000-50 mg tbef Take by mouth. cyanocobalamin (VITAMIN B-12) 1,000 mcg tab Take 1,000 mcg by mouth once daily. Ceramides 1,3,6-11 lotn Apply to affected area. cholecalciferol (VITAMIN D3) 5,000 unit tab Take 5,000 Units by mouth once daily. cyclobenzaprine (FLEXERIL) 10 mg tablet Take 1 tablet by mouth at bedtime as needed for muscle spasm or pain. No current facility-administered medications for this visit. ALLERGIES Allergen Reactions Betadine [Povidone-* Intolerance Delayed onset pruritic rash, most likely irritant contact dermatitis Chlorhexidine Gluco* Rash Delayed onset pruritic rash, most likely irritant contact dermatitis Social History Tobacco Use Smoking status: Former Packs/day: 2.00 Years: 20.00 Pack years: 40.00 Types: Cigarettes Quit date: 1996 Years since quittin.4 Smokeless tobacco: Never Vaping Use Vaping Use: Never used Substance Use Topics Alcohol use: No Drug use: No ROS: See HPI PE: BP 136/82 Pulse 76 Temp (Src) 98.7 (Left Tympanic) Resp 20 Wt 236 lb (107.0kg) LMP 10/20/2016 Gen: AANDOX3, NAD, non-toxic appearing HEENT: PERRLA, EOMs intact b/l, nares with drainage, + sinus TTP b/l maxillary, pharynx without erythema, exudate, lesions, + thick yellow post nasal drainage. Uvula midline. EAC and TM wnl Neck: No LAD, no thyromegaly, no meningismus. No palpable thyroid nodule CV: RRR, no murmur Lungs: CTA b/l, no wheezing Normal peripheral pulses No edema legs Skin: No rashes, lesions, or wounds on exposed skin. ASSESSMENT/PLAN: 1. Subclinical hypothyroidism - ICD9: 244.8, ICD10: E03.8 (primary diagnosis) - Instructed patient on importance of taking on an empty stomach either first thing in the morning or at bedtime. Recheck labs and thyroid US - TSH BLD - T4 FREE/FREE THYROX - T3 FREE BLD - VITAMIN B12 BLOOD - US THYROID/PARATHYROID 2. Thyroid enlarged - ICD9: 240.9, ICD10: E04.9 - Instructed patient on importance of taking on an empty stomach either first thing in the morning or at bedtime. Recheck labs and thyroid US - US THYROID/PARATHYROID 3. Rhinosinusitis - ICD9: 473.9, ICD10: J31.0, J32.9 - Will begin treatment with as per antibiotic as written, see orders Continue supportive care - AMOXICILLIN 875 MG-POTASSIUM CLAVULANATE 125 MG TABLET Elvin Wilson DO Return if no improvement. Follow up with Elvin Wilson DO. To ER if develops chest pain, shortness of breath. Discussed risks, benefits, alternatives, and potential side effects of medications. Patient/Guardian expressed understanding and agreed with the plan. See patient instructions. Elvin Wilson DO [address] [place] (more content not included)... [facility] 01-14-2023 Note HNO ID: [id number] Author: Amy Shelby APRN.[employer] SPECIALIST Service: ? Author Type: Nurse Practitioner Type: Progress Notes Filed: 01/14/2023 2:03 PM Note Text: CC: Patient presents with: Cough: With congestion x 1 week. Seen here on Monday, worsening HPI: Aurelia Ferrara is a 62 year old female who presents to the office with complaint of head congestion, cough, nonproductive, sore throat, and sinus symptoms for a week. Symptoms are worsening Associated symptoms includes nasal congestion, facial pain/pressure, and cough. Denies nausea, vomiting , and diarrhea. Treatments tried include nothing so far. with no relief of symptoms. Sick contacts: unknown. History of asthma, frequent episodes of bronchitis, chronic bronchitis, bronchiectasis or COPD: No Smoker: No Seasonal/environmental allergies: No The ROS is otherwise negative. The patient's pmh, medications, allergies, and past visits are reviewed. PHYSICAL EXAM: BP 132/80 Pulse 84 Temp 37.3 ?C (99.2 ?F) Resp 16 Wt 105.2 kg (232 lb) LMP 10/20/2016 SpO2 98% BMI 38.42 kg/m? General appearance: alert, cooperative, pleasant, in no acute distress Head: Normocephalic Eyes: EOM's intact, conjunctiva pink and moist, no icterus, sclera white, non-injected Ears: Right ear: External ear/canal- Normal, TM - clear with good landmarks. Left ear: External ear/canal- Normal, TM - clear with good landmarks Oropharynx:moderate erythema, without exudates present Heart: Negative. RRR without obvious murmur, gallop, or rubs. No ectopy. Lungs: clear to auscultation, without rales or wheeze, good air exchange PAST MEDICAL HISTORY Diagnosis Date Abdominal pain, unspecified site Arthritis Benign neoplasm of colon Hypertension, essential 10/11/2021 NAFL (nonalcoholic fatty liver) Osteoarthritis Snoring Unspecified constipation PAST SURGICAL HISTORY Procedure Laterality Date ARTHRP ACETBLR/PROX FEM PROSTC AGRFT/ALGRFT Right 10/24/2017 Hip replacement, total COLONOSCOPY FLX DX W/COLLJ SPEC WHEN PFRMD 08/19/2009 COLONOSCOPY FLX DX W/COLLJ SPEC WHEN PFRMD 10/26/2012 Colonoscopy repeat 3 years COLONOSCOPY FLX DX W/COLLJ SPEC WHEN PFRMD 11/09/2015 Colonoscopy COLONOSCOPY GEN ANES 11/23/2020 Repeat in 5 years EYE SURGERY HX HEMORRHOIDECTOMY INTERNAL RUBBER BAND LIGATIONS 03/05/2010 Hemorrhoidectomy JOINT REPLACEMENT HX LIG/TRNSXJ FLP TUBE ABDL/VAG APPR UNI/BI 1991 Tubal ligation PAST SURGICAL HISTORY OF 1997 tubal reversal PAST SURGICAL HISTORY OF 02/17/2020 Eye Surgery Closed angle Glaucoma ALLERGIES Betadine [Povidone-Iodine] and Chlorhexidine Gluconate MEDICATIONS benzonatate (TESSALON PERLE) 100 mg capsule Take 2 capsules by mouth three times daily as needed for up to 10 days. levothyroxine (LEVOXYL) 25 mcg tablet Take 1 tablet by mouth once daily. Take on empty stomach. For Thyroid metoprolol succinate ER (TOPROL XL) 25 mg 24 hr tablet Take 1 tablet by mouth daily in the late morning. At bedtime for hypertension MV-Min-Vit [id number] (AIRBORNE, LYSINE HCL,) 1,000-50 mg tbef Take by mouth. cyclobenzaprine (FLEXERIL) 10 mg tablet Take 1 tablet by mouth at bedtime as needed for muscle spasm or pain. cyanocobalamin (VITAMIN B-12) 1,000 mcg tab Take 1,000 mcg by mouth once daily. fluticasone (FLONASE) 50 mcg/actuation nasal spray Use 2 Sprays in each nostril once daily. Rinse mouth after use. cholecalciferol (VITAMIN D3) 5,000 unit tab Take 5,000 Units by mouth once daily. Ceramides 1,3,6-11 lotn Apply to affected area. (Patient not taking: No sig reported) FAMILY HISTORY Problem Relation Age of Onset Cancer Father colon, esophagus, stomach, abdomen None Mother No Known Problems Sister Alcohol/Drug Brother No Known Problems Brother No Known Problems Son No Known Problems Son No Known Problems Son Cancer Maternal Grandmother Lymph node Diabetes Maternal Grandfather type 2 other (Dementia) Paternal Grandmother Colon Cancer Colon Cancer Paternal Grandfather Social History Tobacco Use Smoking status: Former Packs/day: 2.00 Years: 20.00 Pack years: 40.00 Types: Cigarettes Quit date: 1996 Years since quittin.3 Smokeless tobacco: Never Vaping Use Vaping Use: Never used Substance Use Topics Alcohol use: No Drug use: No ASSESSMENT/PLAN: 1. Sore throat - ICD9: 462, ICD10: J02.9 (primary diagnosis) - STREP A MOLECULAR (POC) - neg 2. Rhinosinusitis - ICD9: 473.9, ICD10: J31.0, J32.9 - AMOXICILLIN 875 MG-POTASSIUM CLAVULANATE 125 MG TABLET - FLUTICASONE PROPIONATE 50 MCG/ACTUATION NASAL SPRAY,SUSPENSION Prescription instructions reviewed with patient as applicable. Potential red flag symptoms discussed with the patient. Reviewed appropriate action plan to take if red flag symptoms occur. Patient agreeable to treatment plan. Amy Shelby APRN.[facility] 01-14-2023 History of Presen t illness Narrative CC: Patient presents with: Cough: With congestion x 1 week. Seen here on Monday, worsening HPI: Aurelia Ferrara is a 62 year old female who presents to the office with complaint of head congestion, cough, nonproductive, sore throat, and sinus symptoms for a week. Symptoms are worsening Associated symptoms includes nasal congestion, facial pain/pressure, and cough. Denies nausea, vomiting , and diarrhea. Treatments tried include nothing so far. with no relief of symptoms. Sick contacts: unknown. History of asthma, frequent episodes of bronchitis, chronic bronchitis, bronchiectasis or COPD: No Smoker: No Seasonal/environmental allergies: No The ROS is otherwise negative. The patient's pmh, medications, allergies, and past visits are reviewed. PHYSICAL EXAM: BP 132/80 Pulse 84 Temp 37.3 C (99.2 F) Resp 16 Wt 105.2 kg (232 lb) LMP 10/20/2016 SpO2 98% BMI 38.42 kg/m General appearance: alert, cooperative, pleasant, in no acute distress Head: Normocephalic Eyes: EOM's intact, conjunctiva pink and moist, no icterus, sclera white, non-injected Ears: Right ear: External ear/canal- Normal, TM - clear with good landmarks. Left ear: External ear/canal- Normal, TM - clear with good landmarks Oropharynx:moderate erythema, without exudates present Heart: Negative. RRR without obvious murmur, gallop, or rubs. No ectopy. Lungs: clear to auscultation, without rales or wheeze, good air exchange PAST MEDICAL HISTORY Diagnosis Date Abdominal pain, unspecified site Arthritis Benign neoplasm of colon Hypertension, essential 10/11/2021 NAFL (nonalcoholic fatty liver) Osteoarthritis Snoring Unspecified constipation PAST SURGICAL HISTORY Procedure Laterality Date ARTHRP ACETBLR/PROX FEM PROSTC AGRFT/ALGRFT Right 10/24/2017 Hip replacement, total COLONOSCOPY FLX DX W/COLLJ SPEC WHEN PFRMD 08/19/2009 COLONOSCOPY FLX DX W/COLLJ SPEC WHEN PFRMD 10/26/2012 Colonoscopy repeat 3 years COLONOSCOPY FLX DX W/COLLJ SPEC WHEN PFRMD 11/09/2015 Colonoscopy COLONOSCOPY GEN ANES 11/23/2020 Repeat in 5 years EYE SURGERY HX HEMORRHOIDECTOMY INTERNAL RUBBER BAND LIGATIONS 03/05/2010 Hemorrhoidectomy JOINT REPLACEMENT HX LIG/TRNSXJ FLP TUBE ABDL/VAG APPR UNI/BI 1991 Tubal ligation PAST SURGICAL HISTORY OF 1997 tubal reversal PAST SURGICAL HISTORY OF 02/17/2020 Eye Surgery Closed angle Glaucoma ALLERGIES Betadine [Povidone-Iodine] and Chlorhexidine Gluconate MEDICATIONS benzonatate (TESSALON PERLE) 100 mg capsule Take 2 capsules by mouth three times daily as needed for up to 10 days. levothyroxine (LEVOXYL) 25 mcg tablet Take 1 tablet by mouth once daily. Take on empty stomach. For Thyroid metoprolol succinate ER (TOPROL XL) 25 mg 24 hr tablet Take 1 tablet by mouth daily in the late morning. At bedtime for hypertension MV-Min-Vit [id number] (AIRBORNE, LYSINE HCL,) 1,000-50 mg tbef Take by mouth. cyclobenzaprine (FLEXERIL) 10 mg tablet Take 1 tablet by mouth at bedtime as needed for muscle spasm or pain. cyanocobalamin (VITAMIN B-12) 1,000 mcg tab Take 1,000 mcg by mouth once daily. fluticasone (FLONASE) 50 mcg/actuation nasal spray Use 2 Sprays in each nostril once daily. Rinse mouth after use. cholecalciferol (VITAMIN D3) 5,000 unit tab Take 5,000 Units by mouth once daily. Ceramides 1,3,6-11 lotn Apply to affected area. (Patient not taking: No sig reported) FAMILY HISTORY Problem Relation Age of Onset Cancer Father colon, esophagus, stomach, abdomen None Mother No Known Problems Sister Alcohol/Drug Brother No Known Problems Brother No Known Problems Son No Known Problems Son No Known Problems Son Cancer Maternal Grandmother Lymph node Diabetes Maternal Grandfather type 2 other (Dementia) Paternal Grandmother Colon Cancer Colon Cancer Paternal Grandfather Social History Tobacco Use Smoking status: Former Packs/day: 2.00 Years: 20.00 Pack years: 40.00 Types: Cigarettes Quit date: 1996 Years since quittin.3 Smokeless tobacco: Never Vaping Use Vaping Use: Never used Substance Use Topics Alcohol use: No Drug use: No ASSESSMENT/PLAN: 1. Sore throat - ICD9: 462, ICD10: J02.9 (primary diagnosis) - STREP A MOLECULAR (POC) - neg 2. Rhinosinusitis - ICD9: 473.9, ICD10: J31.0, J32.9 - AMOXICILLIN 875 MG-POTASSIUM CLAVULANATE 125 MG TABLET - FLUTICASONE PROPIONATE 50 MCG/ACTUATION NASAL SPRAY,SUSPENSION Prescription instructions reviewed with patient as applicable. Potential red flag symptoms discussed with the patient. Reviewed appropriate action plan to take if red flag symptoms occur. Patient agreeable to treatment plan. Amy Shelby APRN.[employer]QA SPECIALIST documented in this encounter [facility] 01-10-2023 Note HNO ID: [id number] Author: Monica Casatno APRN.[employer]QA SPECIALIST Service: ? Author Type: Nurse Practitioner Type: Progress Notes Filed: 01/10/2023 6:49 PM Note Text: Subjective Nasal Congestion Associated symptoms include chills, congestion, coughing and a sore throat. Pertinent negatives include no ear pain or shortness of breath. Aurelia Ferrara is a 62 year old female who presents with 3 days of sore throat, cough, body aches, chills, nasal drainage and feeling tired. She had her grandkids over the weekend and afterwards a couple of them got sick. She has been using Dayquil and Nyquil at home. She has not had a fever over 10 degrees. Review of Systems Constitutional: Positive for chills and malaise/fatigue. Negative for fever. HENT: Positive for congestion and sore throat. Negative for ear pain. Respiratory: Positive for cough. Negative for shortness of breath. Cardiovascular: Negative. Gastrointestinal: Negative for abdominal pain, diarrhea, nausea and vomiting. Musculoskeletal: Positive for myalgias. BP 126/82 Pulse 102 Temp 37.4 ?C (99.3 ?F) Resp 18 Wt 107 kg (236 lb) LMP 10/20/2016 SpO2 98% BMI 39.08 kg/m? PAST MEDICAL HISTORY Diagnosis Date Abdominal pain, unspecified site Arthritis Benign neoplasm of colon Hypertension, essential 10/11/2021 NAFL (nonalcoholic fatty liver) Osteoarthritis Snoring Unspecified constipation PAST SURGICAL HISTORY Procedure Laterality Date ARTHRP ACETBLR/PROX FEM PROSTC AGRFT/ALGRFT Right 10/24/2017 Hip replacement, total COLONOSCOPY FLX DX W/COLLJ SPEC WHEN PFRMD 08/19/2009 COLONOSCOPY FLX DX W/COLLJ SPEC WHEN PFRMD 10/26/2012 Colonoscopy repeat 3 years COLONOSCOPY FLX DX W/COLLJ SPEC WHEN PFRMD 11/09/2015 Colonoscopy COLONOSCOPY GEN ANES 11/23/2020 Repeat in 5 years EYE SURGERY HX HEMORRHOIDECTOMY INTERNAL RUBBER BAND LIGATIONS 03/05/2010 Hemorrhoidectomy JOINT REPLACEMENT HX LIG/TRNSXJ FLP TUBE ABDL/VAG APPR UNI/BI 1991 Tubal ligation PAST SURGICAL HISTORY OF 1997 tubal reversal PAST SURGICAL HISTORY OF 02/17/2020 Eye Surgery Closed angle Glaucoma ALLERGIES Betadine [Povidone-Iodine] and Chlorhexidine Gluconate MEDICATIONS levothyroxine (LEVOXYL) 25 mcg tablet Take 1 tablet by mouth once daily. Take on empty stomach. For Thyroid metoprolol succinate ER (TOPROL XL) 25 mg 24 hr tablet Take 1 tablet by mouth daily in the late morning. At bedtime for hypertension MV-Min-Vit [id number] (AIRBORNE, LYSINE HCL,) 1,000-50 mg tbef Take by mouth. cyanocobalamin (VITAMIN B-12) 1,000 mcg tab Take 1,000 mcg by mouth once daily. fluticasone (FLONASE) 50 mcg/actuation nasal spray Use 2 Sprays in each nostril once daily. Rinse mouth after use. cholecalciferol (VITAMIN D3) 5,000 unit tab Take 5,000 Units by mouth once daily. cyclobenzaprine (FLEXERIL) 10 mg tablet Take 1 tablet by mouth at bedtime as needed for muscle spasm or pain. Ceramides 1,3,6-11 lotn Apply to affected area. (Patient not taking: Reported on 10/21/2022) FAMILY HISTORY Problem Relation Age of Onset Cancer Father colon, esophagus, stomach, abdomen None Mother No Known Problems Sister Alcohol/Drug Brother No Known Problems Brother No Known Problems Son No Known Problems Son No Known Problems Son Cancer Maternal Grandmother Lymph node Diabetes Maternal Grandfather type 2 other (Dementia) Paternal Grandmother Colon Cancer Colon Cancer Paternal Grandfather Social History Tobacco Use Smoking status: Former Packs/day: 2.00 Years: 20.00 Pack years: 40.00 Types: Cigarettes Quit date: 1996 Years since quittin.3 Smokeless tobacco: Never Vaping Use Vaping Use: Never used Substance Use Topics Alcohol use: No Drug use: No Objective Physical Exam Vitals and nursing note reviewed. Constitutional: General: She is not in acute distress. Appearance: Normal appearance. She is obese. She is not ill-appearing. HENT: Right Ear: Tympanic membrane, ear canal and external ear normal. Left Ear: Tympanic membrane, ear canal and external ear normal. Mouth/Throat: Mouth: Mucous membranes are moist. Pharynx: Uvula midline. Posterior oropharyngeal erythema present. No oropharyngeal exudate. Cardiovascular: Rate and Rhythm: Normal rate and regular rhythm. Heart sounds: Normal heart sounds. Pulmonary: Effort: Pulmonary effort is normal. No respiratory distress. Breath sounds: Normal breath sounds. No wheezing or rales. Musculoskeletal: Cervical back: Neck supple. Lymphadenopathy: Cervical: No cervical adenopathy. Skin: General: Skin is warm and dry. Findings: No erythema or rash. Neurological: Mental Status: She is alert. ASSESSMENT/PLAN: 1. Sore throat - ICD9: 462, ICD10: J02.9 (primary diagnosis) - suspect viral - Alere Strep Test negative, no culture pending - Discussed supportive care treatment with fluids, rest and analgesia. - STREP A MOLECULAR (POC) (more content not included)... [facility] 01-10-2023 Instructions Monica Castano APRN.NCQA SPECIALIST - 01/10/2023 6:48 PM EDT ASSESSMENT/PLAN: 1. Sore throat - ICD9: 462, ICD10: J02.9 (primary diagnosis) - suspect viral - Alere Strep Test negative, no culture pending - Discussed supportive care treatment with fluids, rest and analgesia. - STREP A MOLECULAR (POC) 2. Viral URI with cough - ICD9: 465.9, ICD10: J06.9 - Discussed viral etiology and rationale for treatment. - Symptomatic treatment with prn analgesia - Supportive care with fluids and rest - COVID WITH FLUA+B, ROUTINE - Follow-up with your PCP in 3-5 days if symptoms have not improved or sooner if symptoms worsen - Discussed red flags and need for immediate medical evaluation if any occur. - Discussed supportive care treatment with fluids, rest and analgesia. - Discussed expected course of illness Monica Castano APRN.MEHRDAD Treatment for Viral Upper Respiratory Tract Infections Your body will kill off the virus by itself. Additionally, you can prime your body's immune system. This may help you get better more quickly. Drink lots of fluids Make sure you are eating well Get plenty of rest We do not have any medications that kill off these viruses. Antibiotics are used to treat bacterial infections; however, they are not active against viral infections. There are some things that might help you feel better, though. Vaporizers, humidifiers, hot showers, and hot fluids help open respiratory and sinus passages [place] Nasal [place] may offer relief of nasal and head congestion Rakesh's Vapor Rub may relieve congestion Tylenol and Advil help control fevers and headaches Salt water gargles help relieve sore throats Chloraceptic spray or throat lozenges may also help relieve sore throat symptoms Occasionally, viral infections turn into something more serious. You should see your doctor or return to the Urgent Care if: You have fevers for longer than five days You have fevers above 102 degrees You are still sick after 10 days You have shortness of breath or wheezing After several days you are getting worse rather than better documented in this encounter [facility] 01-10-2023 History of Presen t illness Narrative Subjective Nasal Congestion Associated symptoms include chills, congestion, coughing and a sore throat. Pertinent negatives include no ear pain or shortness of breath. Aurelia Ferrara is a 62 year old female who presents with 3 days of sore throat, cough, body aches, chills, nasal drainage and feeling tired. She had her grandkids over the weekend and afterwards a couple of them got sick. She has been using Dayquil and Nyquil at home. She has not had a fever over 10 degrees. Review of Systems Constitutional: Positive for chills and malaise/fatigue. Negative for fever. HENT: Positive for congestion and sore throat. Negative for ear pain. Respiratory: Positive for cough. Negative for shortness of breath. Cardiovascular: Negative. Gastrointestinal: Negative for abdominal pain, diarrhea, nausea and vomiting. Musculoskeletal: Positive for myalgias. BP 126/82 Pulse 102 Temp 37.4 C (99.3 F) Resp 18 Wt 107 kg (236 lb) LMP 10/20/2016 SpO2 98% BMI 39.08 kg/m PAST MEDICAL HISTORY Diagnosis Date Abdominal pain, unspecified site Arthritis Benign neoplasm of colon Hypertension, essential 10/11/2021 NAFL (nonalcoholic fatty liver) Osteoarthritis Snoring Unspecified constipation PAST SURGICAL HISTORY Procedure Laterality Date ARTHRP ACETBLR/PROX FEM PROSTC AGRFT/ALGRFT Right 10/24/2017 Hip replacement, total COLONOSCOPY FLX DX W/COLLJ SPEC WHEN PFRMD 08/19/2009 COLONOSCOPY FLX DX W/COLLJ SPEC WHEN PFRMD 10/26/2012 Colonoscopy repeat 3 years COLONOSCOPY FLX DX W/COLLJ SPEC WHEN PFRMD 11/09/2015 Colonoscopy COLONOSCOPY GEN ANES 11/23/2020 Repeat in 5 years EYE SURGERY HX HEMORRHOIDECTOMY INTERNAL RUBBER BAND LIGATIONS 03/05/2010 Hemorrhoidectomy JOINT REPLACEMENT HX LIG/TRNSXJ FLP TUBE ABDL/VAG APPR UNI/BI 1991 Tubal ligation PAST SURGICAL HISTORY OF 1997 tubal reversal PAST SURGICAL HISTORY OF 02/17/2020 Eye Surgery Closed angle Glaucoma ALLERGIES Betadine [Povidone-Iodine] and Chlorhexidine Gluconate MEDICATIONS levothyroxine (LEVOXYL) 25 mcg tablet Take 1 tablet by mouth once daily. Take on empty stomach. For Thyroid metoprolol succinate ER (TOPROL XL) 25 mg 24 hr tablet Take 1 tablet by mouth daily in the late morning. At bedtime for hypertension MV-Min-Vit [id number] ([place], LYSINE HCL,) 1,000-50 mg tbef Take by mouth. cyanocobalamin (VITAMIN B-12) 1,000 mcg tab Take 1,000 mcg by mouth once daily. fluticasone (FLONASE) 50 mcg/actuation nasal spray Use 2 Sprays in each nostril once daily. Rinse mouth after use. cholecalciferol (VITAMIN D3) 5,000 unit tab Take 5,000 Units by mouth once daily. cyclobenzaprine (FLEXERIL) 10 mg tablet Take 1 tablet by mouth at bedtime as needed for muscle spasm or pain. Ceramides 1,3,6-11 lotn Apply to affected area. (Patient not taking: Reported on 10/21/2022) FAMILY HISTORY Problem Relation Age of Onset Cancer Father colon, esophagus, stomach, abdomen None Mother No Known Problems Sister Alcohol/Drug Brother No Known Problems Brother No Known Problems Son No Known Problems Son No Known Problems Son Cancer Maternal Grandmother Lymph node Diabetes Maternal Grandfather type 2 other (Dementia) Paternal Grandmother Colon Cancer Colon Cancer Paternal Grandfather Social History Tobacco Use Smoking status: Former Packs/day: 2.00 Years: 20.00 Pack years: 40.00 Types: Cigarettes Quit date: 1996 Years since quittin.3 Smokeless tobacco: Never Vaping Use Vaping Use: Never used Substance Use Topics Alcohol use: No Drug use: No Objective Physical Exam Vitals and nursing note reviewed. Constitutional: General: She is not in acute distress. Appearance: Normal appearance. She is obese. She is not ill-appearing. HENT: Right Ear: Tympanic membrane, ear canal and external ear normal. Left Ear: Tympanic membrane, ear canal and external ear normal. Mouth/Throat: Mouth: Mucous membranes are moist. Pharynx: Uvula midline. Posterior oropharyngeal erythema present. No oropharyngeal exudate. Cardiovascular: Rate and Rhythm: Normal rate and regular rhythm. Heart sounds: Normal heart sounds. Pulmonary: Effort: Pulmonary effort is normal. No respiratory distress. Breath sounds: Normal breath sounds. No wheezing or rales. Musculoskeletal: Cervical back: Neck supple. Lymphadenopathy: Cervical: No cervical adenopathy. Skin: General: Skin is warm and dry. Findings: No erythema or rash. Neurological: Mental Status: She is alert. ASSESSMENT/PLAN: 1. Sore throat - ICD9: 462, ICD10: J02.9 (primary diagnosis) - suspect viral - Alere Strep Test negative, no culture pending - Discussed supportive care treatment with fluids, rest and analgesia. - STREP A MOLECULAR (POC) 2. Viral URI with cough - ICD9: 465.9, ICD10: J06.9 - Discussed viral etiology and rationale for treatment. - Symptomatic treatment with prn analgesia - Supportive care with fluids and rest - COVID WITH FLUA+B, ROUTINE - Follow-up with your PCP in 3-5 days if symptoms have not improved or sooner if symptoms worsen - Discussed red flags and need for immediate medical evaluation if any occur. - Discussed supportive care treatment with fluids, rest and analgesia. - Discussed expected course of illness Monica Castano APRN.MEHRDAD documented in this encounter [facility] 12-22-2022 Miscellaneous Notes Patient returned call and given provider's message below and patient verbalized understanding. Oh Le RN Left message for patient to return call Dayana Watson Please inform patient that her left breast diagnostic mammogram and US of her left breast are normal. Return to yearly screening mammogram Elvin Wilson DO documented in this encounter [facility] 12-20-2022 Note HNO ID: [id number] Author: Vani Juárez RDMS Service: ? Author Type: Patent Counsel Type: Progress Notes Filed: 12/20/2022 3:52 PM Note Text: Radiology Service Progress Note PATIENT NAME: Aurelia Ferrara DATE OF SERVICE: December 20, 2022 TIME: 3:52 PM PATIENT IDENTITY VERIFICATION COMPLETED USING TWO (2) IDENTIFIERS: Name and Date of confirmed by patient verbally. FALL SCREENING: Has the patient had 2 falls in the last year or 1 fall with injury or currently using an Ambulatory Assistive Device (Walker, Cane, Wheelchair, Crutches, etc.)? No PATIENT GENDER DATA: Female. status: : No status: NO. PATIENT RELEVANT IMPLANT DATA REVIEWED: Not Applicable RADIOLOGY DEPARTMENT: Ultrasound PERIPHERAL IV DATA: Not applicable SIGNED BY: Vani Juárez RDMS December 20, 2022 3:52 PM [facility] 12-20-2022 Note HNO ID: [id number] Author: RT Salvador(R) Service: ? Author Type: Technologist Type: Progress Notes Filed: 12/20/2022 3:00 PM Note Text: Radiology Service Progress Note PATIENT NAME: Aurelia Ferrara DATE OF SERVICE: December 20, 2022 TIME: 3:00 PM PATIENT IDENTITY VERIFICATION COMPLETED USING TWO (2) IDENTIFIERS: Name and Date of confirmed by patient verbally. FALL SCREENING: Has the patient had 2 falls in the last year or 1 fall with injury or currently using an Ambulatory Assistive Device (Walker, Cane, Wheelchair, Crutches, etc.)? No PATIENT GENDER DATA: Female. status: : No status: NO. PATIENT RELEVANT IMPLANT DATA REVIEWED: Not Applicable RADIOLOGY DEPARTMENT: Biopsy and Mammography PERIPHERAL IV DATA: Not applicable SIGNED BY: RT Salvador(Mikey) December 20, 2022 3:00 PM [facility] 11-14-2022 Miscellaneous Notes Spoke with pt and information listed below given. Pt verbalizes understanding. Phone number given for pt to call and schedule. Mami Campbell LPN Message left to return call. Please inform patient that her mammogram results as below, require diagnostic mammogram. IMPRESSION: INCOMPLETE: NEEDS ADDITIONAL IMAGING EVALUATION The possible developing 4 mm asymmetry in the left breast is indeterminate. Additional views with possible ultrasound are recommended. Elvin Wilson DO documented in this encounter [facility] 11-14-2022 Miscellaneous Notes November 15, 2022 PID: [id number] Aurelia Ferrara [address] [place] [address] Dear Ms. Ferrara, Your recent breast imaging exam on 11/11/2022 showed a possible finding that requires additional imaging studies for a complete evaluation. Most such findings are probably benign (not cancer). If you have a healthcare provider who ordered/prescribed your screening mammogram: Please call [phone] or [phone]: [phone] to schedule an appointment for your additional imaging (if you have not already done so). If you DO NOT have a healthcare provider (ie you did not have an order/prescription for your screening mammogram): Please call to schedule an appointment for your additional imaging (if you have not already done so). You must have an order/prescription from your physician when calling to schedule your appointment. If your order/prescription is not electronic, you must bring the hard copy with you on the day of your exam to avoid delays. Your imaging studies and reports are kept on file at [facility] as part of your permanent medical record, and are available for your continuing care. Thank you for allowing us to help in meeting your health care needs. Sincerely, Dr. Middleton Interpreting Radiologist [facility] (Additional imaging) documented in this encounter [facility] 11-11-2022 Note HNO ID: [id number] Author: RT Wanda(R) Service: Radiology Author Type: Patent Counsel Type: Progress Notes Filed: 11/11/2022 2:54 PM Note Text: Radiology Service Progress Note PATIENT NAME: Aurelia Ferrara DATE OF SERVICE: November 11, 2022 TIME: 2:53 PM PATIENT IDENTITY VERIFICATION COMPLETED USING TWO (2) IDENTIFIERS: Name and Date of confirmed by patient verbally. FALL SCREENING: Has the patient had 2 falls in the last year or 1 fall with injury or currently using an Ambulatory Assistive Device (Walker, Cane, Wheelchair, Crutches, etc.)? No PATIENT GENDER DATA: Female. status: : No status: NO. PATIENT RELEVANT IMPLANT DATA REVIEWED: Yes RADIOLOGY DEPARTMENT: Mammography PERIPHERAL IV DATA: Not applicable SIGNED BY: RT Wanda(R) November 11, 2022 2:53 PM [facility] 11-11-2022 History of Presen t illness Narrative Radiology Service Progress Note PATIENT NAME: Aurelia Ferrara DATE OF SERVICE: November 11, 2022 TIME: 2:53 PM PATIENT IDENTITY VERIFICATION COMPLETED USING TWO (2) IDENTIFIERS: Name and Date of confirmed by patient verbally. FALL SCREENING: Has the patient had 2 falls in the last year or 1 fall with injury or currently using an Ambulatory Assistive Device (Walker, Cane, Wheelchair, Crutches, etc.)? No PATIENT GENDER DATA: Female. status: : No status: NO. PATIENT RELEVANT IMPLANT DATA REVIEWED: Yes RADIOLOGY DEPARTMENT: Mammography PERIPHERAL IV DATA: Not applicable SIGNED BY: RT Wanda(R) November 11, 2022 2:53 PM documented in this encounter [facility] 11-03-2022 Miscellaneous Notes Patient notified of results and provider's instructions. Patient verbalizes understanding. Patient states that she already made an appointment with someone outside of [facility] Mary Womack RN Left message for patient to return call Dayana Watson I am aware this was a follow-up monitoring scan of prior nodules and biopsy. The prior 2 nodules noted on US from 12/01/21 were: Location: Right mid Size: 1.2 x 0.9 x 0.9 cm Location: Right isthmus Size: 1.4 x 1.2 x 0.5 cm Both lobes of the thyroid were also enlarged at this time. This nodule on US from 10/28: Location: Right mid, posteriorly Size: 0.4 x 0.4 x 0.5 cm No enlargement of thyroid lobes currently. Therefore, this has drastically decreased in size. With how small it is is now, no repeat biopsy is needed or recommended. Able to have second opinion, can refer to endocrine if pt would like. Let me know. Thank you, Chrissie Valdez APRN.CNP Patient returned call and went over results, notes from Chrissie Valdez BATTERY ENGINEER with understanding. Patient is concerned since nothing had been mentioned about the right thyroid where she had fine needle aspiration done last year, this was a follow up ultrasound to having that done, patient is thinking about having second opinion done. Left message for patient to return call [facility] Please call patient and let her know that US of thyroid did show one small nodule to R side of thyroid. Due to the size and description, no FNA or follow-up imagining is recommended. Thank you, Chrissie Valdez APRN.MEHRDAD documented in this encounter [facility] 10-28-2022 Note HNO ID: [id number] Author: Yvonne Trinidad RDMS Service: ? Author Type: Mixing Engineer Type: Progress Notes Filed: 10/28/2022 2:36 PM Note Text: Radiology Service Progress Note PATIENT NAME: Aurelia Ferrara DATE OF SERVICE: October 28, 2022 TIME: 2:36 PM PATIENT IDENTITY VERIFICATION COMPLETED USING TWO (2) IDENTIFIERS: Name and Date of confirmed by patient verbally. FALL SCREENING: Has the patient had 2 falls in the last year or 1 fall with injury or currently using an Ambulatory Assistive Device (Walker, Cane, Wheelchair, Crutches, etc.)? No PATIENT GENDER DATA: Female. status: : No status: NO. PATIENT RELEVANT IMPLANT DATA REVIEWED: Not Applicable RADIOLOGY DEPARTMENT: Ultrasound PERIPHERAL IV DATA: Not applicable SIGNED BY: Yovnne Trinidad RDMS RVT October 28, 2022 2:36 PM [facility] 10-28-2022 History of Presen t illness Narrative Radiology Service Progress Note PATIENT NAME: Aurelia Ferrara DATE OF SERVICE: October 28, 2022 TIME: 2:36 PM PATIENT IDENTITY VERIFICATION COMPLETED USING TWO (2) IDENTIFIERS: Name and Date of confirmed by patient verbally. FALL SCREENING: Has the patient had 2 falls in the last year or 1 fall with injury or currently using an Ambulatory Assistive Device (Walker, Cane, Wheelchair, Crutches, etc.)? No PATIENT GENDER DATA: Female. status: : No status: NO. PATIENT RELEVANT IMPLANT DATA REVIEWED: Not Applicable RADIOLOGY DEPARTMENT: Ultrasound PERIPHERAL IV DATA: Not applicable SIGNED BY: Yvonne Trinidad RDMS RVT October 28, 2022 2:36 PM documented in this encounter [facility] 10-27-2022 Miscellaneous Notes [facility] Closing encounter. Chrissie Valdez APRN.CNP Labs last completed 6 months ago. Please order labs needed. Dayana Watson documented in this encounter [facility] 10-26-2022 Miscellaneous Notes Noted. Thank you, Chrissie Valdez APRN.CNP Called number provided. Waited on line 15 minutes then recording came back on said no one is available to take call go to website or leave a message. Left a detailed message to either send us message through teams or call left number. Noted. Please contact number below and see if we are able to get MRI results. Thank you, Chrissie Valdez APRN.MEHRDAD Pt calls back with the number she found on the form she had. On the consent form the number for meeting coordinator: [phone] Email: [email or web address] Pt also reports there was a number at the top of every page and pt thinks it is to identify pt. ID# [id number]. Pt reports if none of that works to give her a call back. Bridgett Rothman LPN Pt returned call to give Chrissie an update. She states she will call tomorrow to give Chrissie the phone number to contact regarding her MRI results from the [facility] brain study testing. Pt would like to hold off on starting any thyroid medication at this time. Has US of thyroid/parathyroid scheduled for Monday and would like to await those results first. Regarding concern for dupuytren (hand) contracture-Pt states she will hold off on xrays or seeing a hand specialist at this time due to this not being an urgent issue at the moment. Thank you. Message left to return call. Have we heard anything about the MRI results from the [facility] brain study testing that pt was talking about? Please call patient and let her know that lab work is back. Thyroid labs are all normal besides slightly elevated TSH. T3 and T4 are normal and compensating. Thyroid antibodies are negative. Continue with US of thyroid. Due to patient so symptomatic -- we can try to start a low dose levothyroxine regimen of 25 mcg daily to improve TSH ..OR... we can continue to monitor and repeat blood work in 2-3 months. HgA1c is slightly into the pre-diabetes range. Watch carbohydrate and sugar intake to improve this. Cholesterol levels look great! As far as concern for dupuytren contracture --- I can send pt to hand specialist. Will need bilateral hand x-rays prior as ordered. Consult order placed as well. Please schedule. Thank you, Chrissie Valdez APRN.MEHRDAD documented in this encounter [facility] 10-21-2022 Note HNO ID: [id number] Author: Chrissie Valdez APRN.CNP Service: ? Author Type: Nurse Practitioner Type: Progress Notes Filed: 10/21/2022 3:54 PM Note Text: Chief Complaint Patient presents with: Physical HPI Aurelia Ferrara is a 62 year old female who presents here today for Above Complaints. Aurelia is an established patient of Dr. Steve Do. She is a new patient to me today. Concerns today... Routine wellness exam. Chronic conditions-- HTN -- On metoprolol 25 mg daily. She states compliant with current blood pressure medication(s). She does not check BP at home. She denies chest pain, shortness of breath, palpitations, dizziness, leg edema, headaches, or vision changes. Last 14 Encounter BP Readings: Date: BP: 10/21/2022 120/68 09/22/2022 149/84 01/03/2022 122/78 12/03/2021 124/86 11/26/2021 118/66 10/11/2021 110/70 08/20/2021 112/88 06/16/2021 120/80 04/14/2021 120/60 03/02/2021 124/82 02/10/2021 138/88 01/13/2021 142/84 10/20/2020 172/101 10/02/2020 150/80 US of thyroid done on 12/01/21 d/t difficulty swallowing -- 2 nodules, 1 recommended FNA. Other recommended monitoring in 1 year. FNA done by Dr. Hernandez was benign with recommended annual-6 month thyroid US monitoring. Repeat US ordered but not completed. Pt willing to have scheduled today for continued monitoring. Pt does report increased fatigue, dry skin, cold intolerance, and weight gain. Gained about 30-40 lbs in 1 year. Lost weight and now has gained it all back and then some. Wondering if this is related to thyroid. Tremor -- Participating in [facility] Brain Study on September 21-. They told pt she has a resting tremor. Pt has not noticed it herself. Has MRI of brain completed through this study and was told it was all normal (These results and orders are not in pt chart). Pt wondering if tremor related to thyroid? Reports 2 family members with essential resting tremors. Pt is unsure of any neurological family disorders such as parkinson's, MS, etc. Pt reports tremor is not bothersome or noticeable. Does not interfere with life. HM -- Mammogram last done on 08/06/21 -- normal. Dupuytren contracture concern -- Brother with dx of dupuytren contracture. Had to have surgery d/t severity. Pt concerned she is beginning to have similar symptoms. Tendons in palms of bilateral hands are very prominent. Pt can feel a pulling in palms to the base of wrist. No contractures, deformities, or stiffness currently. Full ROM. Bowel changes-- Very gassy with potatoes. Hx of constipation. Taking metamucil gummies daily. Over the last month, has had BM every day. But also gassy and bloated this past month as well. Denies any ABD pain or n/v/d/c. Weight -- Frustrated with weight loss journey. Has gained significant amount of weight this past year. Unsure if related to stress from thyroid problems or not. Interested in weight loss medication. Past medical history, appointments, medications, allergies reviewed. Previous Medical History PAST MEDICAL HISTORY Diagnosis Date Abdominal pain, unspecified site Arthritis Benign neoplasm of colon Hypertension, essential 10/11/2021 NAFL (nonalcoholic fatty liver) Osteoarthritis Snoring Unspecified constipation Previous Surgical History PAST SURGICAL HISTORY Procedure Laterality Date ARTHRP ACETBLR/PROX FEM PROSTC AGRFT/ALGRFT Right 10/24/2017 Hip replacement, total COLONOSCOPY FLX DX W/COLLJ SPEC WHEN PFRMD 08/19/2009 COLONOSCOPY FLX DX W/COLLJ SPEC WHEN PFRMD 10/26/2012 Colonoscopy repeat 3 years COLONOSCOPY FLX DX W/COLLJ SPEC WHEN PFRMD 11/09/2015 Colonoscopy COLONOSCOPY GEN ANES 11/23/2020 Repeat in 5 years EYE SURGERY HX HEMORRHOIDECTOMY INTERNAL RUBBER BAND LIGATIONS 03/05/2010 Hemorrhoidectomy JOINT REPLACEMENT HX LIG/TRNSXJ FLP TUBE ABDL/VAG APPR UNI/BI 1991 Tubal ligation PAST SURGICAL HISTORY OF 1997 tubal reversal PAST SURGICAL HISTORY OF 02/17/2020 Eye Surgery Closed angle Glaucoma Family History FAMILY HISTORY Problem Relation Age of Onset Cancer Father colon, esophagus, stomach, abdomen None Mother No Known Problems Sister Alcohol/Drug Brother No Known Problems Brother No Known Problems Son No Known Problems Son No Known Problems Son Cancer Maternal Grandmother Lymph node Diabetes Maternal Grandfather type 2 other (Dementia) Paternal Grandmother Colon Cancer Colon Cancer Paternal Grandfather Patient Allergies ALLERGIES Allergen Reactions Betadine [Povidone-* Intolerance Delayed onset pruritic rash, most likely irritant contact dermatitis Chlorhexidine Gluco* Rash Delayed onset pruritic rash, most likely irritant contact dermatitis Current Medications Current Outpatient Medications on File Prior to Visit Medication Sig Lactobac no.41/Bifidobact no.7 (PROBIOTIC-10 ORAL) Take by mouth. MV-Min-Vit H-Ngmr-Nwfkhc-Hb124 (AIRBORNE, LYSINE HCL,) 1,000-50 mg tbef (more content not included)... [facility] 10-21-2022 Instructions Chrissie Valdez APRN.CNP - 10/21/2022 1:06 PM EST Phentermine/Adipex Schedule mammogram. Schedule US of thyroid. Lab work drawn today. documented in this encounter [facility] 10-21-2022 History of Presen t illness Narrative Chief Complaint Patient presents with: Physical HPI Aurelia Ferrara is a 62 year old female who presents here today for Above Complaints. Aurelia is an established patient of Dr. Steve Do. She is a new patient to me today. Concerns today... Routine wellness exam. Chronic conditions-- HTN -- On metoprolol 25 mg daily. She states compliant with current blood pressure medication(s). She does not check BP at home. She denies chest pain, shortness of breath, palpitations, dizziness, leg edema, headaches, or vision changes. Last 14 Encounter BP Readings: Date: BP: 10/21/2022 120/68 09/22/2022 149/84 01/03/2022 122/78 12/03/2021 124/86 11/26/2021 118/66 10/11/2021 110/70 08/20/2021 112/88 06/16/2021 120/80 04/14/2021 120/60 03/02/2021 124/82 02/10/2021 138/88 01/13/2021 142/84 10/20/2020 172/101 10/02/2020 150/80 US of thyroid done on 12/01/21 d/t difficulty swallowing -- 2 nodules, 1 recommended FNA. Other recommended monitoring in 1 year. FNA done by Dr. Hernandez was benign with recommended annual-6 month thyroid US monitoring. Repeat US ordered but not completed. Pt willing to have scheduled today for continued monitoring. Pt does report increased fatigue, dry skin, cold intolerance, and weight gain. Gained about 30-40 lbs in 1 year. Lost weight and now has gained it all back and then some. Wondering if this is related to thyroid. Tremor -- Participating in [facility] Brain Study on September 21-. They told pt she has a resting tremor. Pt has not noticed it herself. Has MRI of brain completed through this study and was told it was all normal (These results and orders are not in pt chart). Pt wondering if tremor related to thyroid? Reports 2 family members with essential resting tremors. Pt is unsure of any neurological family disorders such as parkinson's, MS, etc. Pt reports tremor is not bothersome or noticeable. Does not interfere with life. HM -- Mammogram last done on 08/06/21 -- normal. Dupuytren contracture concern -- Brother with dx of dupuytren contracture. Had to have surgery d/t severity. Pt concerned she is beginning to have similar symptoms. Tendons in palms of bilateral hands are very prominent. Pt can feel a pulling in palms to the base of wrist. No contractures, deformities, or stiffness currently. Full ROM. Bowel changes-- Very gassy with potatoes. Hx of constipation. Taking metamucil gummies daily. Over the last month, has had BM every day. But also gassy and bloated this past month as well. Denies any ABD pain or n/v/d/c. Weight -- Frustrated with weight loss journey. Has gained significant amount of weight this past year. Unsure if related to stress from thyroid problems or not. Interested in weight loss medication. Past medical history, appointments, medications, allergies reviewed. Previous Medical History PAST MEDICAL HISTORY Diagnosis Date Abdominal pain, unspecified site Arthritis Benign neoplasm of colon Hypertension, essential 10/11/2021 NAFL (nonalcoholic fatty liver) Osteoarthritis Snoring Unspecified constipation Previous Surgical History PAST SURGICAL HISTORY Procedure Laterality Date ARTHRP ACETBLR/PROX FEM PROSTC AGRFT/ALGRFT Right 10/24/2017 Hip replacement, total COLONOSCOPY FLX DX W/COLLJ SPEC WHEN PFRMD 08/19/2009 COLONOSCOPY FLX DX W/COLLJ SPEC WHEN PFRMD 10/26/2012 Colonoscopy repeat 3 years COLONOSCOPY FLX DX W/COLLJ SPEC WHEN PFRMD 11/09/2015 Colonoscopy COLONOSCOPY GEN ANES 11/23/2020 Repeat in 5 years EYE SURGERY HX HEMORRHOIDECTOMY INTERNAL RUBBER BAND LIGATIONS 03/05/2010 Hemorrhoidectomy JOINT REPLACEMENT HX LIG/TRNSXJ FLP TUBE ABDL/VAG APPR UNI/BI 1991 Tubal ligation PAST SURGICAL HISTORY OF 1997 tubal reversal PAST SURGICAL HISTORY OF 02/17/2020 Eye Surgery Closed angle Glaucoma Family History FAMILY HISTORY Problem Relation Age of Onset Cancer Father colon, esophagus, stomach, abdomen None Mother No Known Problems Sister Alcohol/Drug Brother No Known Problems Brother No Known Problems Son No Known Problems Son No Known Problems Son Cancer Maternal Grandmother Lymph node Diabetes Maternal Grandfather type 2 other (Dementia) Paternal Grandmother Colon Cancer Colon Cancer Paternal Grandfather Patient Allergies ALLERGIES Allergen Reactions Betadine [Povidone-* Intolerance Delayed onset pruritic rash, most likely irritant contact dermatitis Chlorhexidine Gluco* Rash Delayed onset pruritic rash, most likely irritant contact dermatitis Current Medications Current Outpatient Medications on File Prior to Visit Medication Sig Lactobac no.41/Bifidobact no.7 (PROBIOTIC-10 ORAL) Take by mouth. MV-Min-Vit Z-Ajnq-Tstqpj-Hb124 (AIRBORNE, LYSINE HCL,) 1,000-50 mg tbef Take by mouth. metoprolol succinate ER (TOPROL XL) 25 mg 24 hr tablet Take 1 tablet by mouth daily in the late morning. At bedtime for hypertension cyclobenzaprine (FLEXERIL) 10 mg tablet Take 1 tablet by mouth at bedtime as needed for muscle spasm or pain. cyanocobalamin (VITAMIN B-12) 1,000 mcg tab Take 1,000 mcg by mouth once daily. fluticasone (FLONASE) 50 mcg/actuation nasal spray Use 2 Sprays in each nostril once daily. Rinse mouth after use. Ceramides 1,3,6-11 (CERAVE) lotn Apply to affected area. cholecalciferol (VITAMIN D-3) 5,000 unit tab Take 5,000 Units by mouth once daily. No current facility-administered medications on file prior to visit. Social History Social History Tobacco Use Smoking status: Former Packs/day: 2.00 Years: 20.00 Pack years: 40.00 Types: Cigarettes Quit date: 1996 Years since quittin.1 Smokeless tobacco: Never Vaping Use Vaping Use: Never used Substance Use Topics Alcohol use: No Drug use: No REVIEW OF SYSTEMS: as above Reviewed relevant PMHx, PSHx, Social Hx, current medications and allergies. Review of Symptoms REVIEW OF SYSTEMS See HPI. EXAM: BP 120/68 (BP Site: Left Arm, BP Position: Sitting, BP Cuff Size: Large Adult) Pulse 60 Resp 12 Ht 165.5 cm (5' 5.16 ) Wt 105 kg (231 lb 6.4 oz) LMP 10/20/2016 BMI 38.32 kg/m General Appearance: Well appearing, alert, in no acute distress, well-hydrated, well nourished.. Skin: Skin color, texture, turgor normal, no suspicious rashes or lesions. Head: Normocephalic, no masses, lesions, tenderness or abnormalities. Oropharynx: Lips, mucosa, and tongue normal, teeth and gums normal, oropharynx normal. Neck: Supple, no adenopathy; thyroid symmetric, normal size, no bruits. Back:no pain to palpation of vertebrae, good flexion and extension, good range of motion, no muscle tenderness, reflexes are 2+ and symmetric, motor and sensory appear to be normal, negative SLR test, no evidence of scoliosis Lungs: Lungs clear to auscultation. No wheezing, rhonchi, rales.. Abdomen: Normal abdominal exam, Abdomen soft, non-tender. Bowel sounds normal. No masses, organomegaly. Extremities: No deformities, edema, skin discoloration, clubbing or cyanosis. Good capillary refill. . Musculoskeletal: No joint swelling, deformity, or tenderness. Peripheral Pulses: Normal. Neurologic: Gait normal. Reflexes normal and symmetric. Sensation grossly intact., Negative findings: speech normal, mental status intact, cranial nerves 2-12 intact, gait, including heel, toe, and tandem walking normal, muscle tone normal, muscle strength normal, rapid alternating movements normal, Positive findings: resting tremor, Oriented X 3. Health Maintenance List BP CONTROLLED (<130/80) Never done DTAP,TDAP,TD(2 - Td or Tdap) due on 01/30/2022 MAMMOGRAM due on 08/06/2022 DEPRESSION ASSESSMENT Never done ANNUAL PCP TEAM CHRONIC DISEASE VISIT due on 01/03/2023 DIABETES SCREEN due on 10/05/2024 COLORECTAL CANCER SCREENING due on 11/23/2025 PAP TESTING due on 04/14/2026 HPV TESTING due on 04/14/2026 LIPID SCREEN due on 10/05/2026 INFLUENZA Completed HEPATITIS C SCREENING Completed SHINGRIX VACCINE Completed COVID-19 VACCINE Completed HIV SCREENING Discontinued ASSESSMENT/PLAN: 1. Wellness examination - ICD9: V70.0, ICD10: Z00.00 (primary diagnosis) - Counseled on healthy diet and regular exercise - Calcium intake with supplements or by diet of 1000 mg/day for under 50, 7800-5216 mg/day for 50+ - Discussed need and benefit for weight loss. BMI 38.32 kg/(m^2) - Mammogram ordered - exam recommended once yearly - Depression screening tool completed and reviewed with patient. Based on score and interview, patient is not at risk for depression and recommended no further intervention at this time. - Follow up for annual exam in one year 2. Hypertension, essential - ICD9: 401.9, ICD10: I10 - good control - Continue current medication(s) - Encouraged dietary sodium restriction/DASH diet - Recommended regular aerobic exercise. - Recommend home blood pressure monitoring, to bring results in on next visit - Discussed need and benefit for weight loss. - Goal of BP <130/80 - Recommended no refined sugar, low refined starch, healthy oil intake (olive oil), healthy protein (fish) along the lines of the Mediterranean diet. - COMP METABOLIC PANEL - CBC + DIFF - METOPROLOL SUCCINATE ER 25 MG TABLET,EXTENDED RELEASE 24 HR 3. Encounter for immunization - ICD9: V03.89, ICD10: Z23 - TDAP VACCINE AGE 7+ IM 4. Thyroid enlarged - ICD9: 240.9, ICD10: E04.9 Hx of thyroid enlarged. Significant symptoms relating to concern for hypothyroidism. Repeat thyroid labs as below. US of thyroid for monitoring of nodules. - TSH BLD - T3 BLD - T4 FREE/FREE THYROX - US THYROID/PARATHYROID - THYROGLOBULIN AB - THYROID PEROXIDASE ANTIBODY BLOOD 5. Right thyroid nodule - ICD9: 241.0, ICD10: E04.1 See above. - TSH BLD - T3 BLD - T4 FREE/FREE THYROX - US THYROID/PARATHYROID - THYROGLOBULIN AB - THYROID PEROXIDASE ANTIBODY BLOOD 6. Obesity, Class I, BMI 30-34.9 - ICD9: 278.00, ICD10: E66.9 Weight increasing Discussed possibly starting adipex. Pt interested. Will reach out to insurance. Will make sure routine lab work is normal prior to starting. - Behavioral intervention, - Eat well program, and - Continue current medications - HGB A1C 7. Dyslipidemia - ICD9: 272.4, ICD10: E78.5 - to be determined upon return of lab results - Encouraged following a low fat, low cholesterol diet. - Discussed the benefits of regular aerobic exercise and weight loss. - Check fasting lipid panel and ALT. - LIPID PANEL BASIC 8. Vitamin D deficiency - ICD9: 268.9, ICD10: E55.9 - VITAMIN D 25 HYDROXY 9. Tremor - ICD9: 781.0, ICD10: R25.1 Will try to obtain MRI brain results from [facility] brain study that were completed 1 month ago. Discussed consult to neuro vs possibly trying propanolol for essential tremor management. Pt would like lab work to rule out thyroid problems prior to either of the above. Tremor is not bothersome at this time per pt. 10. Dupuytren contracture - ICD9: 728.6, ICD10: M72.0 Concern for the start of Dupuytren contracture. Brother with this dx. Has had surgery d/t severity. Will discuss with Dr. Wilson about treatment options or if referral is necessary. Will let patient know further plan of care. 11. Bowel habit changes - ICD9: 787.99, ICD10: R19.4 Discussed decreasing metamucil to every other day. Track with food log and see if symptoms relate to when patient is eating gluten products. Continue to monitor. RTO in 3 months, sooner if needed. Prescription instructions reviewed with patient as applicable. Potential red flag symptoms discussed with the patient. Reviewed appropriate action plan to take if red flag symptoms occur. Patient agreeable to treatment plan. Chrissie Crawford APRN.NCQA SPECIALIST [address] [place] [address] documented in this encounter [facility] 09-22-2022 Note HNO ID: [id number] Author: Opal Radford, Research Coordinator Service: ? Author Type: Research Type: Progress Notes Filed: 09/22/2022 10:29 AM Note Text: DATE:September 22, 2022 PT. NAME: Aurelia Ferrara [facility]#: [id number] IRB #: [id number]. PROTOCOL: [facility] Brain Study Layup Worker: Adithya Watkins MD, , Eamon Juares, PhD, , Zoltan Ramirez MD, [facility] personnel worker for study related questions: Sheila Mendoza Subject continues to give consent for participation and for procedures related to study YES. Were there changes made to the informed consent since the last visit? NO. If yes, were changes reviewed and explained to subject? N/A Was a new copy of the informed consent signed, placed in the chart, placed in the study file and was a copy given to the patient? N/A Patient Identification was verified by asking the patients Name and Date Of : YES Time: 10:19AM Blood drawn with vacutainer and labs drawn per protocol. Butterfly removed after blood draw and secured with sterile gauze. Patient tolerated procedure well. Opal Radford, Research Coordinator [facility] 09-22-2022 Note HNO ID: [id number] Author: Tayla Blevins APRN.NCQA SPECIALIST Service: ? Author Type: Nurse Practitioner Type: Progress Notes Filed: 09/22/2022 1:08 PM Note Text: Result of Physical Exam Body System Eyes: Normal ,corrective lenses Ears, Nose, Mouth and Throat: Normal Cardiovascular: Normal Respiratory: Normal Gastrointestinal: Normal Genitourinary: Normal Musculoskeletal: Normal ,Stiff Right Hip - History R Total Hip Replacement Integumentary: Normal Psychiatric: Not examined Handedness: Right hand Results of Mental Status Assessment Mental Assessments Attention: Abnormality Present: No Memory Working Memory: Abnormality Present: No Recent (Episodic) Memory: Abnormality Present: Yes ,Recalled 2 of 3 words. Unable to test for 3rd word - examiner's fault. Remote (Semantic) Memory: Abnormality Present: No Language Spontaneous Speech: Abnormality Present: No Comprehension: Abnormality Present: No Naming: Abnormality Present: No Repetition: Abnormality Present: No Reading: Abnormality Present: No Affect: Abnormality Present: No Craninal Nerve Assessment Visual Salguero: Normal EOM: Normal Nystagmus: Physiologic Pupils: Equal and reactive Ptosis: Absent Trigeminal: Normal CN VII: Normal CN VIII: Normal CN IX: Normal CN X: Normal CN XI: Normal CN XII: Normal Assessment of Motor and Bulk and Tones Motor Assessments Muscle bulk-global: Normal Muscle tone-global: Normal Motor Strength Assessment Shoulder flexion: Right 5 Left 5 Shoulder external rotation: Right 5 Left 5 Shoulder abduction: Right 5 Left 5 Elbow flexion: Right 5 Left 5 Elbow extension: Right 5 Left 5 Wrist flexion: Right 5 Left 5 Wrist extension: Right 5 Left 5 Finger flexion/cash register servicer: Right 5 Left 5 Flexor pollicis longus: Right 5 Left 5 Abductor pollicis brevis: Right 5 Left 5 Hip flexion: Right 5 Left 5 Hip extension: Right 5 Left 5 Hip abduction: Right 5 Left 5 Hip adduction: Right 5 Left 5 Knee flexion: Right 5 Left 5 Knee extension: Right 5 Left 5 Ankle eversion: Right 5 Left 5 Ankle inversion: Right 5 Left 5 Ankle plantar flexion: Right 5 Left 5 Ankle dorsiflexion: Right 5 Left 5 Extensor halluces longus: Right 5 Left 5 Flexor digitorum longus: Right 5 Left 5 Reflexes - MRC Grading Method Biceps: Right 1+ Left 1+ Triceps: Right 1+ Left 1+ Brachioradialis: Right 1+ Left 1+ Patellar: Right 1+ Left 1+ Achilles: Right 1+ Left 1+ Plantar: Right Mute Left Mute Weakness?: NO Tremor?: Yes Type of Tremor: Postural and Intention Cerebellar/Coordination Assessment Wntcye-jp-Exul: Abnormality present: No, Mybf-vm-Xvra: Abnormality present: No, Finger Tapping - Abnormality present: No Fist Open/Close - Abnormality present: No Pronation/Supination of the Hand - Abnormality present: No Toe Tapping - Abnormality present: No Heel Tapping - Abnormality present: No Gait Gait-global assessment: Abnormal Abnormal/Other Gait Details: Difficulty maintaining balance during tandem walk - leaned left then right - was able to regain balance by self Sensory/Sensation Sensory System-globlal assessment: Normal *Participant does not remember age of first flu shot.* Positive Postural and intention tremor LUE hand greater than RUE. Negative resting. Positive for awareness of tremor in LUE only, family history of Parkinson's (Maternal Aunt and Maternal Uncle), am stiffness, GI issues (loose stool), decreased sense of smell, and has hobby making stained glass (has fume tuttle like device for soldering). Negative for falling, dropping items, acting out dreams. DATE:September 22, 2022 PT. NAME: Aurelia Ferrara [facility]#: [id number] IRB #: [id number]. PROTOCOL: [facility] Brain Study Layup Worker: Adithya Watkins MD, , Eamon Juares, PhD, , Zoltan Ramirez MD, [facility] personnel worker for study related questions: Joann Colvin Subject continues to give consent for participation and for procedures related to study YES. Were there changes made to the informed consent since the last visit? NO. If yes, were changes reviewed and explained to subject? N/A Was a new copy of the informed consent signed, placed in the chart, placed in the study file and was a copy given to the patient? N/A Patient Identification was verified by asking the patients Name and Date Of : YES Time:0859 EKG/ECG was performed on patient. Patient tolerated procedure well. Tayla Blevins APRN.NCQA SPECIALIST [facility] 09-13-2022 Note HNO ID: [id number] Author: Donna Hope Research Coordinator Service: ? Author Type: Research Type: Progress Notes Filed: 09/13/2022 1:26 PM Note Text: DATE:September 13, 2022 PT. NAME: Aurelia Ferrara [facility]#: [id number] IRB #: [id number]. PROTOCOL: [facility] Brain Study Layup Worker: Adithya Watkins MD, , Eamon Juares, PhD, , Zoltan Ramirez MD, [facility] personnel worker for study related questions: Joann Colvin Subject continues to give consent for participation and for procedures related to study YES. Were there changes made to the informed consent since the last visit? NO. If yes, were changes reviewed and explained to subject? N/A Was a new copy of the informed consent signed, placed in the chart, placed in the study file and was a copy given to the patient? N/A MRI Questionnaire was completed by patient on 09/12/2022 at 3:21 PM PST. Donna Hope, Research Coordinator [facility] 09-13-2022 History of Presen t illness Narrative DATE:September 13, 2022 PT. NAME: Aurelia Ferrara [facility]#: [id number] IRB #: [id number]. PROTOCOL: [facility] Brain Study Layup Worker: Adithya Watkins MD, , Eamon Juares, PhD, , Zoltan Ramirez MD, [facility] personnel worker for study related questions: Joann Colvin Subject continues to give consent for participation and for procedures related to study YES. Were there changes made to the informed consent since the last visit? NO. If yes, were changes reviewed and explained to subject? N/A Was a new copy of the informed consent signed, placed in the chart, placed in the study file and was a copy given to the patient? N/A MRI Questionnaire was completed by patient on 09/12/2022 at 3:21 PM PST. Donna Hope Research Coordinator documented in this encounter [facility] 09-07-2022 Note Patient Outreach (IN TMMN) AURELIA FERRARA ([id number]) 1960 F NFR Date Time Provider Department 09/07/22 ELVIN WILSON During your visit today, we recorded the following information about you: Allergies As of Date: 09/07/2022 Noted Allergy Reaction BETADINE (POVIDONE-IODINE) 06/13/2019 5 - Intolerance Comments: Delayed onset pruritic rash, most likely irritant contact dermatitis CHLORHEXIDINE GLUCONATE 06/13/2019 2 - Rash Comments: Delayed onset pruritic rash, most likely irritant contact dermatitis Date Reviewed: 06/21/2022 Reviewed by: Jaylene Jones RN - Fully Assessed Visit Diagnosis:Encounter for screening mammogram for breast cancer [Z12.31] Order(s):[facility] SCREENING [[id number]] Order #: [id number] FUTURE Prescriptions as of 09/12/2022 - Lactobac no.41/Bifidobact no.7 (PROBIOTIC-10 ORAL) Take by mouth. - MV-Min-Vit E-Uddr-Ncvsnc-Hb124 (AIRBORNE, LYSINE HCL,) 1,000-50 mg tbef Take by mouth. - metoprolol succinate ER (TOPROL XL) 25 mg 24 hr tablet Take 1 tablet by mouth daily in the late morning. At bedtime for hypertension - cyclobenzaprine (FLEXERIL) 10 mg tablet Take 1 tablet by mouth at bedtime as needed for muscle spasm or pain. - cyanocobalamin (VITAMIN B-12) 1,000 mcg tab Take 1,000 mcg by mouth once daily. - fluticasone (FLONASE) 50 mcg/actuation nasal spray Use 2 Sprays in each nostril once daily. Rinse mouth after use. - Ceramides 1,3,6-11 (CERAVE) lotn Apply to affected area. - cholecalciferol (VITAMIN D-3) 5,000 unit tab Take 5,000 Units by mouth once daily. 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] 06/07/2011 10/09/2012 Pain in joint, pelvic region and thigh [M25.559]04/27/2012 10/09/2012 Post-menopausal [Z78.0] 10/09/2012 Benign neoplasm of rectum and anal canal [D12.8*10/26/2012 Hip arthritis [M16.10] 10/24/2013 BMI 32.0-32.9,adult [Z68.32] 10/09/2015 History of total right hip arthroplasty [Z96.64*01/23/2018 Routine physical examination [Z00.00] 08/20/2018 Dizziness [R42] 08/20/2018 Hypoglycemia [E16.2] 08/20/2018 Fatigue [R53.83] 08/20/2018 Vitamin D deficiency [E55.9] 08/20/2018 Small fiber neuropathy (HCC) [G62.9] 01/07/2019 Palpitations [R00.2] 01/07/2019 Dyslipidemia [E78.5] 01/07/2019 Fatty liver disease, nonalcoholic [K76.0] 08/21/2019 Obesity, Class I, BMI 30-34.9 [E66.9] 08/21/2019 Well adult exam [Z00.00] 08/21/2019 Muscle spasms of neck [M62.838] 06/16/2021 Nasal congestion [R09.81] 06/16/2021 Headache, unspecified headache type [R51.9] 06/16/2021 Neck pain, bilateral [M54.2] 06/16/2021 IFG (impaired fasting glucose) [R73.01] 10/11/2021 Hypertension, essential [I10] 10/11/2021 Encounter Status:Closed by EPIC, PRODUSER on 09/12/22 [facility] 09-06-2022 Miscellaneous Notes IRB [id number]. [facility] Brain Study ([facility]) Layup Worker: Adithya Watkins MD, , Eamon Juares, PhD, , Zoltan Ramirez MD, Granite Installer: Joann Colvin and Email:[email or web address] Research Coordinator called and contacted Aurelia Ferrara on September 06, 2022 to reminded patient of appointment with the [facility] Brain Study, Donna Hope, Research Coordinator also let pt. Know about the option to DocuSign the constant form or Sign in person. Research Coordinator gave patient Contact information for if the patient had any questions about the study and or their appointment. documented in this encounter [facility] 07-07-2022 Miscellaneous Notes IRB [id number]. [facility] Brain Study ([facility]) Layup Worker: Adithya Watkins MD, , Eamon Juares, PhD, , Zoltan Ramirez MD, Granite Installer: Joann Colvin and Email:[email or web address] Spoke with Aurelia Ferrara to follow up about the [facility] Brain Study ([facility]): Biomarkers and Predictors of Neurological Disorders IRB [id number]. Taty Cruz, Research Coordinator scheduled Aurelia Ferrara for study on 09/21/22 at 3:30 pm. Taty Cruz Research Coordinator documented in this encounter [facility] 06-21-2022 History of Presen t illness Narrative New patient CHIEF COMPLAINT: Full body skin exam HISTORY OF PRESENT ILLNESS: Aurelia Ferrara is a 62 year old female here for FBSE -h/o psoriasis 1. FBSE Lesion of concern 1 Location: right thigh Duration: about 1 year Signs and symptoms: itchy, raised - denies pain, bleeding Current treatment: none Past treatments: none Lesion of concern 2 Location: left cheek Duration: noticed 6 months ago Signs and symptoms: hyperpigmented - denies itching, pain, bleeding Current treatment: none Past treatments: none Personal Dermatologic History History of skin cancer: No History of actinic keratoses: YES History of atypical nevi: YES History of immunosuppression: NO History of blistering sunburns: YES FAMILY HISTORY: History of melanoma: paternal grandmother - Brother (unknown) Past Medical History PAST MEDICAL HISTORY Diagnosis Date Abdominal pain, unspecified site Arthritis Benign neoplasm of colon Hypertension, essential 10/11/2021 NAFL (nonalcoholic fatty liver) Osteoarthritis Snoring Unspecified constipation REVIEW OF SYSTEMS: Constitutional: Denies fever, chills, unintentional weight loss. Skin as per HPI Medications Current Outpatient Medications Medication Sig Lactobac no.41/Bifidobact no.7 (PROBIOTIC-10 ORAL) Take by mouth. MV-Min-Vit [id number] (AIRBORNE, LYSINE HCL,) 1,000-50 mg tbef Take by mouth. metoprolol succinate ER (TOPROL XL) 25 mg 24 hr tablet Take 1 tablet by mouth daily in the late morning. At bedtime for hypertension cyclobenzaprine (FLEXERIL) 10 mg tablet Take 1 tablet by mouth at bedtime as needed for muscle spasm or pain. cyanocobalamin (VITAMIN B-12) 1,000 mcg tab Take 1,000 mcg by mouth once daily. fluticasone (FLONASE) 50 mcg/actuation nasal spray Use 2 Sprays in each nostril once daily. Rinse mouth after use. Ceramides 1,3,6-11 (CERAVE) lotn Apply to affected area. cholecalciferol (VITAMIN D-3) 5,000 unit tab Take 5,000 Units by mouth once daily. No current facility-administered medications for this visit. PHYSICAL EXAM: General: awake, alert, no acute distress Neuropsych: appropriate mood and affect Eyes: Sclerae anicteric, without conjunctival injection, eyelids unremarkable Skin: Skin exam was performed today including the following: Skin exam performed including face, scalp, neck, chest, abdomen, back, arms, hands, nails, legs, feet, and buttocks. All are within normal limits except the following findings: - Few scattered bright red dome-shaped papules on the trunk and extremities - Scattered light brown stellate macules on the face, shoulders, chest, and upper extremities - Scattered, evenly colored, round brown macules and papules with regular borders on the trunk and extremities - Numerous scattered skin-colored and brown, waxy, stuck-on papules and plaques on the trunk and extremities ASSESSMENT & PLAN: #Lentigines (including LOC2) #Epps angiomas - Reassurance provided regarding the benign nature of these lesions. - Discussed that treatment considered cosmetic and not covered by insurance. #Multiple benign nevi - Complete skin exam performed today with no outlier lesions identified - Reassured patient of benign nature of these lesions. - Recommend monthly self skin exams. Return for lesions that are growing, changing or symptomatic. - Recommend daily photoprotection with broad-spectrum sunscreen, avoidance of sun during peak hours, and sun protective clothing. - Dermoscopy was used for physical examination of pigmented lesions during today s office visit. #Seborrheic keratoses (including LOC1) - Discussed etiology and natural history of condition, including benign nature. - Discussed that if symptomatic/bothersome, may consider intervention. - Discussed risks and benefits of observation vs cryotherapy vs shave removal. - Patient opts for observation Return to clinic: 1 year FBSE The documentation for this note was completed by Jaylene Jones RN acting as scribe for Romelia Singh MD. June 21, 2022. I agree with the Chief Complaint, ROS, and Past Histories independently gathered by the clinical support worker and the remaining scribed note accurately describes my personal service to the patient. Romelia Singh MD documented in this encounter [facility] 01-18-2022 Miscellaneous Notes Pt. informed. Allyn Castellano LPN I would recommend supportive care with Mucinex 600 mg twice a day for congestion, increased fluid intake, rest. Doesn't likely qualify for Paxlovid rx since symptoms >5 days now. Elvin Wilson DO Protocol Recommended: Home Care. Informed patient to update PCP if symptoms do not improve or if they worsen. Red flag symptoms reviewed as to when to seek ER. Informed patient that provider would be updated with this information and patient would be notified if provider has further orders or instructions. Thank you. Reason for Disposition [1] COVID-19 diagnosed by positive lab test (e.g., PCR, rapid self-test kit) AND [2] mild symptoms (e.g., cough, fever, others) AND [3] no complications or SOB Answer Assessment - Initial Assessment Questions 1. COVID-19 DIAGNOSIS: Patient reports she started to have covid type symptoms on 01/12/22 and took a home test on 01/17/22 and it was positive 2. COVID-19 EXPOSURE: unsure 3. ONSET:01/12/22 4. WORST SYMPTOM: cough 5. COUGH:Yes, constant cough. Denies shortness of breath or chest tightness. 6. FEVER: No current fever. She reports she had one last week but not now 7. RESPIRATORY STATUS: Denies shortness of breath, or wheezing 8. [id number]-[id number]:Better 9. HIGH RISK DISEASE: see history 10. VACCINE: yes, has received 11. BOOSTER: yes-one 12. :n/a 13. OTHER SYMPTOMS: Denies chills, fatigue, headache, loss of smell or taste, muscle pain, or sore throat. Had slight diarrhea but improving. Eating and drinking well. 14. O2 SATURATION MONITOR: N/a 15. OTHER: Patient reports she is taking Mucinex occassionally Protocols used: CORONAVIRUS (COVID-19) DIAGNOSED OR [id number] documented in this encounter [facility] 01-03-2022 Instructions Brendan Avalos APRN.DUARTE CRONIN - 01/03/2022 2:48 PM EDT Follow up in 6 months for US imaging Return to the clinic or seek care at [facility] for any worsening signs or symptoms Healthy Habits: Recommend regular physical activity, nutrition and healthy eating habits. Consume a variety of foods every day focusing on fruits, vegetables and lean meats). Eat foods low in fat, saturated fat and cholesterol. Eat a limited amount of salt and sodium. Drink adequate amounts of water and limit sugary drinks. Exercise portion control in meal selection. Establish a mindset of a wellness approach to health. Thank you for allowing me to provide your care today. I look forward to seeing you again and maintaining your health. Brendan Avalos APRN.DUARTE CRONIN documented in this encounter [facility] 01-03-2022 History of Presen t illness Narrative Chief Complaint Patient presents with: Recheck: discuss thryroid HPI Aurelia Ferrara is a 61 year old female who presents here today for follow up on thyroid concerns. This is an established patient of Dr. Elvin Wilson DO. Denies any recent urgent care visits, ER visits or hospitalizations. Thyroid: 2 Thyroid nodules identified on recent US. Referred to [facility]. FNA bx of larger nodule completed. Labs in normal range. Bx was benign. Dr. Hernandez recommended follow up US imaging in 1 year. Was having pain within the anterior portion of the neck specifically when she swallows. States recently she has been having difficulty swallowing pills. No prior thyroid masses or nodules. No previous abnormal thyroid studies. Otherwise no other immediate family member has hyper or hypothyroidism. Denies neck trauma or previous neck surgery. Symptoms have improved -regarding the feeling of neck fullness and pain. Past medical history, appointments, medications, allergies reviewed 01/03/2022 Previous Medical History PAST MEDICAL HISTORY Diagnosis Date Abdominal pain, unspecified site Arthritis Benign neoplasm of colon Hypertension, essential 10/11/2021 NAFL (nonalcoholic fatty liver) Osteoarthritis Snoring Unspecified constipation Previous Surgical History PAST SURGICAL HISTORY Procedure Laterality Date ARTHRP ACETBLR/PROX FEM PROSTC AGRFT/ALGRFT Right 10/24/2017 Hip replacement, total COLONOSCOPY FLX DX W/COLLJ SPEC WHEN PFRMD 08/19/2009 COLONOSCOPY FLX DX W/COLLJ SPEC WHEN PFRMD 10/26/2012 Colonoscopy repeat 3 years COLONOSCOPY FLX DX W/COLLJ SPEC WHEN PFRMD 11/09/2015 Colonoscopy COLONOSCOPY GEN ANES 11/23/2020 Repeat in 5 years EYE SURGERY HX HEMORRHOIDECTOMY INTERNAL RUBBER BAND LIGATIONS 03/05/2010 Hemorrhoidectomy JOINT REPLACEMENT HX LIG/TRNSXJ FLP TUBE ABDL/VAG APPR UNI/BI 1991 Tubal ligation PAST SURGICAL HISTORY OF 1997 tubal reversal PAST SURGICAL HISTORY OF 02/17/2020 Eye Surgery Closed angle Glaucoma Family History FAMILY HISTORY Problem Relation Age of Onset Cancer Father colon, esophagus, stomach, abdomen None Mother No Known Problems Sister Alcohol/Drug Brother No Known Problems Brother No Known Problems Son No Known Problems Son No Known Problems Son Cancer Maternal Grandmother Lymph node Diabetes Maternal Grandfather type 2 other (Dementia) Paternal Grandmother Colon Cancer Colon Cancer Paternal Grandfather Patient Allergies ALLERGIES Allergen Reactions Betadine [Povidone-* Intolerance Delayed onset pruritic rash, most likely irritant contact dermatitis Chlorhexidine Gluco* Rash Delayed onset pruritic rash, most likely irritant contact dermatitis Current Medications Current Outpatient Medications on File Prior to Visit Medication Sig Lactobac no.41/Bifidobact no.7 (PROBIOTIC-10 ORAL) Take by mouth. MV-Min-Vit [id number] (AIRBORNE, LYSINE HCL,) 1,000-50 mg tbef Take by mouth. metoprolol succinate ER (TOPROL XL) 25 mg 24 hr tablet Take 1 tablet by mouth daily in the late morning. At bedtime for hypertension cyclobenzaprine (FLEXERIL) 10 mg tablet Take 1 tablet by mouth at bedtime as needed for muscle spasm or pain. predniSONE (DELTASONE) 20 mg tablet Take 1 tablet by mouth once daily. In the morning cyanocobalamin (VITAMIN B-12) 1,000 mcg tab Take 1,000 mcg by mouth once daily. fluticasone (FLONASE) 50 mcg/actuation nasal spray Use 2 Sprays in each nostril once daily. Rinse mouth after use. buPROPion (WELLBUTRIN) 75 mg tablet Take 1 tablet by mouth twice daily. Ceramides 1,3,6-11 (CERAVE) lotn Apply to affected area. MULTI-VITAMIN ORAL Take by mouth. cholecalciferol (VITAMIN D-3) 5,000 unit tab Take 5,000 Units by mouth once daily. No current facility-administered medications on file prior to visit. Social History Social History Tobacco Use Smoking status: Former Smoker Packs/day: 2.00 Years: 20.00 Pack years: 40.00 Types: Cigarettes Quit date: 1996 Years since quittin.3 Smokeless tobacco: Never Used Vaping Use Vaping Use: Never used Substance Use Topics Alcohol use: No Drug use: No Review of Symptoms GENERAL: No weight loss, malaise or fevers. HEENT: See HPI NECK: See HPI RESPIRATORY: Negative for cough, dyspnea or shortness of breath CARDIOVASCULAR: Negative for chest pain MUSCULOSKELETAL: Negative for generalized joint pain EXAM: BP 122/78 Pulse 66 Resp 12 Wt 91.6 kg (202 lb) LMP 10/20/2016 SpO2 99% BMI 32.60 kg/m General Appearance: Well appearing, alert, in no acute distress, well-hydrated, well nourished. Obese Skin: Skin color normal Head: Normocephalic Eyes: Anicteric sclera. Psych: Attitude - cooperative, easily engaged in conversation Appearance - normal, hygiene and grooming appropriate Affect - euthymic, normal mood Mental status: Alert, attentive. Speech is clear and fluent with good repetition, comprehension Coordination: There are no abnormal or extraneous movements. Gait/Stance: Posture is normal. Gait is steady with normal steps Health Maintenance List HIV SCREENING Never done DTAP,TDAP,TD(2 - Td or Tdap) due on 01/30/2022 DEPRESSION SCREENING due on 02/09/2022 MAMMOGRAM due on 08/06/2022 ANNUAL PCP TEAM CHRONIC DISEASE VISIT due on 10/11/2022 BP CONTROLLED (<130/80) due on 10/11/2022 DIABETES SCREEN due on 10/05/2024 COLORECTAL CANCER SCREENING due on 11/23/2025 PAP TESTING due on 04/14/2026 HPV TESTING due on 04/14/2026 LIPID SCREEN due on 10/05/2026 INFLUENZA Completed HEPATITIS C SCREENING Completed SHINGRIX VACCINE Completed COVID-19 VACCINE Completed MENINGOCOCCAL CONJUGATE Aged Out Data reviewed Last 5 Encounter BP Readings: Date: BP: 01/03/2022 122/78 12/03/2021 124/86 11/26/2021 118/66 10/11/2021 110/70 08/20/2021 112/88 BMI Readings from Last 5 Encounters: 01/03/22 : 32.60 kg/m 12/03/21 : 31.64 kg/m 11/26/21 : 31.96 kg/m 10/11/21 : 31.47 kg/m 08/20/21 : 33.28 kg/m Last 5 Encounter Wt Readings: Date: Wt: 01/03/2022 91.6 kg (202 lb) 12/03/2021 88.9 kg (196 lb) 11/26/2021 89.8 kg (198 lb) 10/11/2021 88.5 kg (195 lb) 08/20/2021 90.7 kg (200 lb) Medication and allergy list reviewed, reconciled and updated 01/03/2022 Component Latest Ref Rng & Units 11/26/2021 WBC 3.70 - 11.00 k/uL 8.70 RBC 3.90 - 5.20 m/uL 4.44 Hemoglobin 11.5 - 15.5 g/dL 12.8 Hematocrit 36.0 - 46.0 % 41.3 MCV 80.0 - 100.0 fL 93.0 MCH 26.0 - 34.0 pg 28.8 MCHC 30.5 - 36.0 g/dL 31.0 RDW-CV 11.5 - 15.0 % 12.2 Platelet Count 150 - 400 k/uL 328 MPV 9.0 - 12.7 fL 10.9 Neut% % 69.9 Abs Neut (ANC) 1.45 - 7.50 k/uL 6.09 Lymph% % 19.9 Abs Lymph 1.00 - 4.00 k/uL 1.73 [place]% % 6.7 Abs [place] <0.87 k/uL 0.58 Eosin% % 2.5 Abs Eosin <0.46 k/uL 0.22 Baso% % 0.5 Abs Baso <0.11 k/uL 0.04 Immature Gran % % 0.5 IMMATURE GRANS (ABS) <0.10 k/uL 0.04 NRBC /100 WBC 0.0 Absolute nRBC <0.01 k/uL <0.01 DTYPE Auto Microsomal Antibody <5.6 IU/mL 1.7 Thyroglobulin Ab <14.4 IU/mL 3.2 Free T4 0.9 - 1.7 ng/dL 1.7 TSH 0.270 - 4.200 mIU/L 0.339 T3 79 - 165 ng/dL 135 PTH, Intact 15 - 65 pg/mL 48 Component TSH Latest Ref Rng & Units 0.270 - 4.200 mIU/L 10/05/2021 2.000 11/26/2021 0.339 ASSESSMENT/PLAN: 1. Right thyroid nodule - ICD9: 241.0, ICD10: E04.1 MDM: Discussed in detail with the patient about her thyroid nodule. Reviewed labs in detail. Also reviewed thyroid imaging. Fine-needle aspiration was benign completed by Dr. Hernandez. Dr. Hernandez recommended a 1 year follow-up along with radiology the ultrasound of the thyroid. Patient concerned and does not want to wait that long. Patient requested a 6-month follow-up ultrasound. Shared decision making made to place a follow-up 6 months ultrasound of her thyroid. States overall symptoms have improved compared to when she first came in. States it seems like after her biopsy that her overall neck pain and fullness have decreased. She will follow-up for any worsening symptoms. - US THYROID/PARATHYROID Brendan Avalos APRN.DUARTE CRONIN This note was completed with [employer] dictation software. Note was reviewed for accuracy. There may be minor misspellings or grammar miscues with [employer] Dictation. I spent a total of 22 minutes on the date of the service which included preparing to see the patient, [id number] patient care, completing clinical documentation, performing a medically appropriate examination, counseling and educating the patient/family/caregiver and ordering medications, tests, or procedures. [place] [id number] This note was copied from previous note and exam dated 11/26/21. Author is Brendan Avalos APRN.DUARTE CRONIN note reviewed and changes have been made or updates noted in the copy & paste portion of an encounter. documented in this encounter [facility] 12-20-2021 History of Presen t illness Narrative TELEPHONE FOLLOW-UP ENCOUNTER Aurelia Ferrara [id number] has requested a telemedicine follow-up visit. Aurelia Ferrara verbalized informed consent to proceed with the telemedicine follow-up visit. Aurelia Ferrara was informed that the details of this telephone visit would be recorded as part of their electronic medical record. I had a telephone visit with Ms. Ferrara today for follow up of US guided FNA of right thyroid nodule. Pathology from [facility] - Rare benign follicular cells and acrophages noted Consistent with benign follicular nodule, adequate for evaluation. Patient complains of a throat punched sensation, though she states that it is fading away and she is concerned about its return. I told her that I do not know the etiology of this, however, I reassured her that the thyroid is not the source. PAST MEDICAL HISTORY Diagnosis Date Abdominal pain, unspecified site Arthritis Benign neoplasm of colon Hypertension, essential 10/11/2021 NAFL (nonalcoholic fatty liver) Osteoarthritis Snoring Unspecified constipation PAST SURGICAL HISTORY Procedure Laterality Date ARTHRP ACETBLR/PROX FEM PROSTC AGRFT/ALGRFT Right 10/24/2017 Hip replacement, total COLONOSCOPY FLX DX W/COLLJ SPEC WHEN PFRMD 08/19/2009 COLONOSCOPY FLX DX W/COLLJ SPEC WHEN PFRMD 10/26/2012 Colonoscopy repeat 3 years COLONOSCOPY FLX DX W/COLLJ SPEC WHEN PFRMD 11/09/2015 Colonoscopy COLONOSCOPY GEN ANES 11/23/2020 Repeat in 5 years EYE SURGERY HX HEMORRHOIDECTOMY INTERNAL RUBBER BAND LIGATIONS 03/05/2010 Hemorrhoidectomy JOINT REPLACEMENT HX LIG/TRNSXJ FLP TUBE ABDL/VAG APPR UNI/BI 1991 Tubal ligation PAST SURGICAL HISTORY OF 1997 tubal reversal PAST SURGICAL HISTORY OF 02/17/2020 Eye Surgery Closed angle Glaucoma FAMILY HISTORY Problem Relation Age of Onset Cancer Father colon, esophagus, stomach, abdomen None Mother No Known Problems Sister Alcohol/Drug Brother No Known Problems Brother No Known Problems Son No Known Problems Son No Known Problems Son Cancer Maternal Grandmother Lymph node Diabetes Maternal Grandfather type 2 other (Dementia) Paternal Grandmother Colon Cancer Colon Cancer Paternal Grandfather Social History Tobacco Use Smoking status: Former Smoker Packs/day: 2.00 Years: 20.00 Pack years: 40.00 Types: Cigarettes Quit date: 1996 Years since quittin.3 Smokeless tobacco: Never Used Vaping Use Vaping Use: Never used Substance Use Topics Alcohol use: No Drug use: No Current Outpatient Medications Medication Sig Dispense Refill Lactobac no.41/Bifidobact no.7 (PROBIOTIC-10 ORAL) Take by mouth. MV-Min-Vit [id number] (AIRBORNE, LYSINE HCL,) 1,000-50 mg tbef Take by mouth. metoprolol succinate ER (TOPROL XL) 25 mg 24 hr tablet Take 1 tablet by mouth daily in the late morning. At bedtime for hypertension 90 tablet 3 cyclobenzaprine (FLEXERIL) 10 mg tablet Take 1 tablet by mouth at bedtime as needed for muscle spasm or pain. 30 tablet 1 cyanocobalamin (VITAMIN B-12) 1,000 mcg tab Take 1,000 mcg by mouth once daily. fluticasone (FLONASE) 50 mcg/actuation nasal spray Use 2 Sprays in each nostril once daily. Rinse mouth after use. 3 Bottle 0 Ceramides 1,3,6-11 (CERAVE) lotn Apply to affected area. cholecalciferol (VITAMIN D-3) 5,000 unit tab Take 5,000 Units by mouth once daily. ALLERGIES Allergen Reactions Betadine [Povidone-* Intolerance Delayed onset pruritic rash, most likely irritant contact dermatitis Chlorhexidine Gluco* Rash Delayed onset pruritic rash, most likely irritant contact dermatitis No physical exam performed due to telephone encounter. Assessment IMPRESSION Benign right follicular thyroid nodule PLAN Patient to return to her primary physician for medical care. I would recommend US thyroid in one year. I spent 5 minutes in the telephone visit. I will communicate my recommendations and prescriptions to the patient's primary care provider. Unrelated to E/M, telemedicine, or virtual visit service provided within previous 7 days. No E/M service or procedure anticipated within next 24 hours. Karla Hernandez MD December 21, 2021 11:28 AM documented in this encounter [facility] 12-14-2021 Procedure note Procedure(s): FINE NEEDLE ASPIRATION BX W/US GDN EA ADDL Pre-Procedure Diagnose(s): Abnormal ultrasound of thyroid gland Post-Procedure Diagnose(s): Abnormal ultrasound of thyroid gland After informed consent was given and patient gives permission for the procedure, the patient was in the supine position with neck in slight extension. Appropriate time out protocol was followed. The ultrasound machine was used for real time imaging. The anterior neck skin was cleansed with a sterile surgical skin preparation. The skin and subcutaneous tissues were infiltrated with 1% xylocaine with epinephrine. The ultrasound transducer probe was brought up to localize the thyroid nodule The thyroid nodule was on the right side of the thyroid isthmus. A 22 G needle attached to a 10 cc syringe was inserted into one of the nodules under US guidance. Several passes were made to ensure obtaining enough material. The needle was withdrawn. Smear slides were made and also the specimen was placed in a formalin solution and forwarded to pathology. The above was repeated with a new 22 G needle attached to a 10 cc syringe. This was done to ensure adequate sampling. This process was again repeated until adequate sampling was deemed to be achieved. The specimens were then forwarded to pathology. Hemostasis was achieved by pressure. A small bandaid was applied and patient told that she could remove it tomorrow. No evidence of bleeding noted. Patient tolerated procedure well. Complications - none EBL - minimal documented in this encounter [facility] 12-13-2021 History of Presen t illness Narrative Here for FNA of right sided isthmus nodule. It is 1.4 cm, suspicious for punctate echogenic foci. She tolerated procedure well. I will call patient with results. UNIVERSAL PROTOCOL / SAFETY CHECKLIST Procedure to be Performed: US Guided FNA Thyroid Nodule Sign In: A Moment of CARE was completed. Personnel directly involved with the procedure wore the appropriate PPE (Personal Protective Equipment). Patient/Surrogate Stated/Verified: PATIENT VERIFIED(optional for EMERGENT procedures): Patient name, Date of , Relevant allergies and The intended procedure Time Out Communication: Intended patient and procedure match the source documents. Consent documented and matches the intended procedure. Sign Out: SIGN OUT (optional for EMERGENT procedures): All specimen containers correctly labeled. Stephanie Rodriguez documented in this encounter [facility] 12-13-2021 Instructions Stephanie Rodriguez - 12/13/2021 2:56 PM EDT The following instructions are important for you related to your office visit today with the [facility]. Instructions After THYROID FINE NEEDLE ASPIRATION Please do not take aspirin or other blood thinners for the next few days. If you have bleeding from the needle site, hold pressure with a clean gauze. If the bleeding continues, contact our office immediately. I recommend taking Advil or Tylenol for the discomfort. An ice pack may improve your discomfort to the area. Contact our office immediately if you have any questions or concerns @ [phone]. Dr. Hernandez will Call you with Results, Monday12/20/2021 @ 8:20 am. If you note any additional difficulties, questions, or concerns, you should contact our office immediately @ [phone] and ask to be transferred to the General Surgery department. documented in this encounter [facility] 12-07-2021 Miscellaneous Notes IRB [id number]. [facility] Brain Study (CCBS) Layup Worker: Adithya Watkins MD, , Eamon Juares, PhD, , Zoltan Ramirez MD, Granite Installer: Avni Murillo and Email: Contacted Aurelia Ferrara by phone to discuss the [facility] Brain Study (CCBS): Biomarkers and Predictors of Neurological Disorders IRB [id number]. Aurelia Ferrara is interested and eligible for the study. Aurelia Ferrara will be placed on the waitlist to be contacted when an appointment spot becomes available. Donna Hope, Research Coordinator documented in this encounter [facility] 12-05-2021 History of Presen t illness Narrative Aurelia Morilloy 1960 REFERRING PHYSICIAN: Brendan Avalos APRN.NCQA SPECIALIST,* CHIEF COMPLAINT: Consult (thyroid nodule) HPI: The patient is a 61 year old female presents with abnormal ultrasound of thyroid. She also notes globus symptoms. She feels like throat has been punched She has noted symptoms since November 09 Also complaints of swallowing difficulties at the throat area. She denies taking any thyroid hormones. She notes no thyroid cancer in the family. She denies history of thyroid problems, denies exposure to radiation. Denies TOB use She denies aspirin or fish oil use. Her serum TFTs were normal She also complains of chest pressure and a burning pain. She also notes that occasionally her breathing is difficult - I told patient that she should tell her PCP of her cardiac and pulmonary complaints. She denies weight loss. She denies appetite changes US THYROID 12/01/2021 RESULT: Right Lobe: 4.2 x 1.7 x 1.9 cm; heterogeneous echogenicity, expected vascular flow. Left Lobe: 4.0 x 1.7 x 1.6 cm; heterogeneous echogenicity, expected vascular flow. Isthmus: 0.4 cm The most suspicious thyroid nodule(s) (up to four) as below: NODULE 1: Location: Right mid Size: 1.2 x 0.9 x 0.9 cm Characteristics: Composition: Solid or almost completely solid, 2 points Echogenicity: Hypoechoic, 2 points Shape: [id number], 0 points Margin: Ill-defined, 0 points Echogenic foci (add points for all that apply): None, 0 points Internal vascularity: present Interval growth: No prior available for comparison TI-RADS Category: TR4 ACR Recommendation: TI-RADS 4 nodule. Follow up imaging in 1, 2, 3 and 5 years is advised. NODULE 2: Location: Right isthmus Size: 1.4 x 1.2 x 0.5 cm Characteristics: Composition: Solid or almost completely solid, 2 points Echogenicity: Hypoechoic, 2 points Shape: [id number], 0 points Margin: Ill-defined, 0 points Echogenic foci (add points for all that apply): Punctate echogenic foci, 3 points Internal vascularity: present Interval growth: No prior available for comparison TI-RADS Category: TR5 ACR Recommendation: TI-RADS 5 nodule. FNA is advised. PAST MEDICAL HISTORY Diagnosis Date Abdominal pain, unspecified site Arthritis Benign neoplasm of colon Hypertension, essential 10/11/2021 NAFL (nonalcoholic fatty liver) Osteoarthritis Snoring Unspecified constipation PAST SURGICAL HISTORY Procedure Laterality Date ARTHRP ACETBLR/PROX FEM PROSTC AGRFT/ALGRFT Right 10/24/2017 Hip replacement, total COLONOSCOPY FLX DX W/COLLJ SPEC WHEN PFRMD 08/19/2009 COLONOSCOPY FLX DX W/COLLJ SPEC WHEN PFRMD 10/26/2012 Colonoscopy repeat 3 years COLONOSCOPY FLX DX W/COLLJ SPEC WHEN PFRMD 11/09/2015 Colonoscopy COLONOSCOPY GEN ANES 11/23/2020 Repeat in 5 years EYE SURGERY HX HEMORRHOIDECTOMY INTERNAL RUBBER BAND LIGATIONS 03/05/2010 Hemorrhoidectomy JOINT REPLACEMENT HX LIG/TRNSXJ FLP TUBE ABDL/VAG APPR UNI/BI 1991 Tubal ligation PAST SURGICAL HISTORY OF 1997 tubal reversal PAST SURGICAL HISTORY OF 02/17/2020 Eye Surgery Closed angle Glaucoma Current Outpatient Medications Medication Sig Lactobac no.41/Bifidobact no.7 (PROBIOTIC-10 ORAL) Take by mouth. MV-Min-Vit [id number] (AIRBORNE, LYSINE HCL,) 1,000-50 mg tbef Take by mouth. metoprolol succinate ER (TOPROL XL) 25 mg 24 hr tablet Take 1 tablet by mouth daily in the late morning. At bedtime for hypertension cyclobenzaprine (FLEXERIL) 10 mg tablet Take 1 tablet by mouth at bedtime as needed for muscle spasm or pain. cyanocobalamin (VITAMIN B-12) 1,000 mcg tab Take 1,000 mcg by mouth once daily. fluticasone (FLONASE) 50 mcg/actuation nasal spray Use 2 Sprays in each nostril once daily. Rinse mouth after use. Ceramides 1,3,6-11 (CERAVE) lotn Apply to affected area. cholecalciferol (VITAMIN D-3) 5,000 unit tab Take 5,000 Units by mouth once daily. ALLERGIES: Betadine [Povidone-Iodine] and Chlorhexidine Gluconate PERSONAL HISTORY: Social History Tobacco Use Smoking status: Former Smoker Packs/day: 2.00 Years: 20.00 Pack years: 40.00 Types: Cigarettes Quit date: 1996 Years since quittin.2 Smokeless tobacco: Never Used Vaping Use Vaping Use: Never used Substance Use Topics Alcohol use: No Drug use: No FAMILY HISTORY Problem Relation Age of Onset Cancer Father colon, esophagus, stomach, abdomen None Mother No Known Problems Sister Alcohol/Drug Brother No Known Problems Brother No Known Problems Son No Known Problems Son No Known Problems Son Cancer Maternal Grandmother Lymph node Diabetes Maternal Grandfather type 2 other (Dementia) Paternal Grandmother Colon Cancer Colon Cancer Paternal Grandfather The review of systems data was entered by the nurse and reviewed by or Nursing Notes: Bren Seaman RN 12/03/2021 3:51 PM Signed REVIEW OF SYSTEMS: General: The patient NOTES fatigue, denies weight loss, denies weight gain, denies feeling hot, and NOTES feelings of cold. Eyes: The patient denies glaucoma, NOTES eye injury/surgery, does not wear glasses or contacts. Ear/Nose/Throat: The patient denies allergies, denies hayfever, denies ear infections, and denies bloody noses. Cardiovascular: The patient denies chest pain, denies heart disease, NOTES high blood pressure,denies cardiac stent, denies prior heart attack, denies irregular heart beat, denies high cholesterol, denies poor circulation, denies heart failure, other cardiac issues, denies claudication, denies cold feet, denies peripheral arterial stent. Respiratory: The patient denies tuberculosis, denies pneumonia, denies frequent cough, denies pulmonary embolism, denies shortness of breath, and denies coughing up blood. Gastrointestinal: The patient NOTES difficulty swallowing, denies acid reflux, denies ulcers, denies vomiting, denies jaundice/hepatitis, denies gallbladder problems, denies black or tarry stools, NOTES hemorrhoids, denies bleeding from rectum, denies diverticulitis, NOTES constipation, denies diarrhea, denies loss of stool control, and denies hernias. Kidney/Bladder: The patient denies kidney stones, denies urine infections, and denies bloody urine. Skin: The patient denies a history of skin cancer, denies bleeding/changing moles, and denies a history of skin rash. Neurologic: The patient denies a history of epilepsy/convulsions, NOTES headaches, denies head/spinal injuries, and denies stroke/TIA. Psychiatric: The patient denies psychiatric medications, denies depression, and denies voices, denies substance abuse. Endocrine: The patient denies thyroid disorders, denies diabetes, and denies hormonal problems. Hematologic: The patient denies a history of bruising, denies bleeding, and denies anemia, denies blood clots. Infections: The patient denies a history of measles and mumps, denies rheumatic fever, and denies sexually transmitted diseases. Musculoskeletal: The patient denies back pain/injury, denies back problems, denies sciatica, denies knee/foot trouble, denies arthritis, or denies gout. When was patient's last Mammogram screening? 2020 Last Colonoscopy: 2020 Bren Seaman RN PHYSICAL EXAMINATION: General: The patient is 61 year old female, well nourished, well hydrated in no acute distress. The patient is oriented to time, place, and person. VITALS: Blood pressure 124/86, pulse 82, temperature 36.6 C (97.9 F), height 167.6 cm (5' 6 ), weight 88.9 kg (196 lb), last menstrual period 10/20/2016, SpO2 98 %. Body mass index is 31.64 kg/m . Head: Normal cephalic, atraumatic Eyes: pupils are equally round, sclera are clear/anicteric Neck is supple with no tracheal deviation Respiratory: Normal respiratory excursion and pattern. Abdominal exam: benign Extremities: no clubbing, cyanosis or edema. Neuro: non focal Psych: normal mood RADIOLOGIC STUDIES: As Noted Assessment IMPRESSION: abnormal ultrasound of thyroid PLAN: I have discussed the above with the patient and her niece who is present with her. I have told patient that she should follow up with her PCP for her complaints of chest pain and breathing difficulties, she states that she will do so. I have offered US guided FNA of left thyroid nodule I have explained the procedure to the patient. To be done in the office with local anesthesia I have counseled the patient as to the risks of the procedure, including but not limited to: infection, bleeding, injury to any blood vessels/nerves, scar tissue, wound infections, complications of anesthesia, etc. the patient understands. The patient wishes to proceed. I have answered all questions to the patient s satisfaction and the patient has no further questions. I have confirmed and edited as necessary, the PFSH and ROS obtained by others. Consultation requested by Brendan Avalos for an opinion regarding patient's abnormal ultrasound of thyroid. My final recommendations will be communicated back to the requesting physician by way of shared Medical record or letter to requesting physician via US mail. . Diagnoses: (R93.89) Abnormal ultrasound of thyroid gland Return to Clinic: The patient will be scheduled in near future for this procedure. Medical Decision Making: Problems: Moderate: New problem with uncertain prognosis Data: Unique test result(s) reviewed: 1 Risk: Low: Low risk from testing/treatment Medical Decision Making Level: 3 - Low Karla Hernandez MD documented in this encounter [facility] 12-05-2021 Miscellaneous Notes Pt is scheduled for 12/[address] Hernandez. Team - I called the patient: Informed her that her thyroid ultrasound came back with a small nodule on the right side of her thyroid. Radiologist is recommending a fine-needle biopsy of the nodule. Our general surgery department can perform this. Placing general surgery consultation for further evaluation and consideration of biopsy. Schedulers please assist with scheduling appt with Dr. Hernandez or Dr. Soriano ASSESSMENT/PLAN: 1. Right thyroid nodule - ICD9: 241.0, ICD10: E04.1 - CONSULT TO GENERAL SURGERY Brendan Avalos, BIOLOGY TUTOR.NCQA SPECIALIST, DNP Formerly [facility] EXAMINATION: THYROID ULTRASOUND CLINICAL HISTORY: Thyroid enlarged Difficulty swallowing pills RESULT: Right Lobe: 4.2 x 1.7 x 1.9 cm; heterogeneous echogenicity, expected vascular flow. Left Lobe: 4.0 x 1.7 x 1.6 cm; heterogeneous echogenicity, expected vascular flow. Isthmus: 0.4 cm The most suspicious thyroid nodule(s) (up to four) as below: NODULE 1: Location: Right mid Size: 1.2 x 0.9 x 0.9 cm Characteristics: Composition: Solid or almost completely solid, 2 points Echogenicity: Hypoechoic, 2 points Shape: [id number]-rwdd, 0 points Margin: Ill-defined, 0 points Echogenic foci (add points for all that apply): None, 0 points Internal vascularity: present Interval growth: No prior available for comparison TI-RADS Category: TR4 ACR Recommendation: TI-RADS 4 nodule. Follow up imaging in 1, 2, 3 and 5 years is advised. NODULE 2: Location: Right isthmus Size: 1.4 x 1.2 x 0.5 cm Characteristics: Composition: Solid or almost completely solid, 2 points Echogenicity: Hypoechoic, 2 points Shape: [id number]-klfk, 0 points Margin: Ill-defined, 0 points Echogenic foci (add points for all that apply): Punctate echogenic foci, 3 points Internal vascularity: present Interval growth: No prior available for comparison TI-RADS Category: TR5 ACR Recommendation: TI-RADS 5 nodule. FNA is advised. documented in this encounter [facility] 12-03-2021 Nurse Note REVIEW OF SYSTEMS: General: The patient NOTES fatigue, denies weight loss, denies weight gain, denies feeling hot, and NOTES feelings of cold. Eyes: The patient denies glaucoma, NOTES eye injury/surgery, does not wear glasses or contacts. Ear/Nose/Throat: The patient denies allergies, denies hayfever, denies ear infections, and denies bloody noses. Cardiovascular: The patient denies chest pain, denies heart disease, NOTES high blood pressure,denies cardiac stent, denies prior heart attack, denies irregular heart beat, denies high cholesterol, denies poor circulation, denies heart failure, other cardiac issues, denies claudication, denies cold feet, denies peripheral arterial stent. Respiratory: The patient denies tuberculosis, denies pneumonia, denies frequent cough, denies pulmonary embolism, denies shortness of breath, and denies coughing up blood. Gastrointestinal: The patient NOTES difficulty swallowing, denies acid reflux, denies ulcers, denies vomiting, denies jaundice/hepatitis, denies gallbladder problems, denies black or tarry stools, NOTES hemorrhoids, denies bleeding from rectum, denies diverticulitis, NOTES constipation, denies diarrhea, denies loss of stool control, and denies hernias. Kidney/Bladder: The patient denies kidney stones, denies urine infections, and denies bloody urine. Skin: The patient denies a history of skin cancer, denies bleeding/changing moles, and denies a history of skin rash. Neurologic: The patient denies a history of epilepsy/convulsions, NOTES headaches, denies head/spinal injuries, and denies stroke/TIA. Psychiatric: The patient denies psychiatric medications, denies depression, and denies voices, denies substance abuse. Endocrine: The patient denies thyroid disorders, denies diabetes, and denies hormonal problems. Hematologic: The patient denies a history of bruising, denies bleeding, and denies anemia, denies blood clots. Infections: The patient denies a history of measles and mumps, denies rheumatic fever, and denies sexually transmitted diseases. Musculoskeletal: The patient denies back pain/injury, denies back problems, denies sciatica, denies knee/foot trouble, denies arthritis, or denies gout. When was patient's last Mammogram screening? 2020 Last Colonoscopy: 2020 Bren Seaamn RN documented in this encounter [facility] 11-26-2021 Instructions Brendan Avalos APRN.MEHRDAD, DUARTE - 11/26/2021 2:46 PM EDT Follow up if symptoms worsen. Complete lab work today. Clinic to send results or call with results Schedule thyroid ultrasound Return to clinic if symptoms worsen Return to the clinic or seek care at Express[facility] for any worsening signs or symptoms: such as fevers, chills, worsening pain, nausea, or diarrhea. For severe symptoms seek care at the closest ER. Plan of care, medicaiton side effects and management reviewed with patient. Healthy Habits: Recommend regular physical activity, nutrition and healthy eating habits. Consume a variety of foods every day focusing on fruits, vegetables and lean meats). Eat foods low in fat, saturated fat and cholesterol. Eat a limited amount of salt and sodium. Drink adequate amounts of water and limit sugary drinks. Exercise portion control in meal selection. Establish a mindset of a wellness approach to health. Thank you for allowing me to provide your care today. I look forward to seeing you again and maintaining your health. Brendan Avalos APRN.MEHRDAD, DUARTE documented in this encounter [facility] 11-26-2021 History of Presen t illness Narrative Chief Complaint Patient presents with: trouble swallowing HPI Aurelia Ferrara is a 61 year old female who presents here today for follow up on thyroid concerns. This is an established patient of Dr. Elvin Wilson DO. Denies any recent urgent care visits, ER visits or hospitalizations. Thyroid: States over the past 3 weeks she has felt pain within the anterior portion of the neck specifically when she swallows. States recently she has been having difficulty swallowing pills. Feels like her thyroid may be enlarged. Denies a persistent sore throat. Slight earaches. No nasal congestion or cold symptoms. Denies fever or chills. No prior thyroid masses or nodules. No previous abnormal thyroid studies. No prior thyroid ultrasound. States she thinks her grandfather had thyroid issues. Otherwise no other immediate family member has hyper or hypothyroidism. Denies neck trauma or previous neck surgery. Past medical history, appointments, medications, allergies reviewed 11/26/2021 Previous Medical History PAST MEDICAL HISTORY Diagnosis Date Abdominal pain, unspecified site Arthritis Benign neoplasm of colon Hypertension, essential 10/11/2021 NAFL (nonalcoholic fatty liver) Osteoarthritis Snoring Unspecified constipation Previous Surgical History PAST SURGICAL HISTORY Procedure Laterality Date ARTHRP ACETBLR/PROX FEM PROSTC AGRFT/ALGRFT Right 10/24/2017 Hip replacement, total COLONOSCOPY FLX DX W/COLLJ SPEC WHEN PFRMD 08/19/2009 COLONOSCOPY FLX DX W/COLLJ SPEC WHEN PFRMD 10/26/2012 Colonoscopy repeat 3 years COLONOSCOPY FLX DX W/COLLJ SPEC WHEN PFRMD 11/09/2015 Colonoscopy COLONOSCOPY GEN ANES 11/23/2020 Repeat in 5 years EYE SURGERY HX HEMORRHOIDECTOMY INTERNAL RUBBER BAND LIGATIONS 03/05/2010 Hemorrhoidectomy JOINT REPLACEMENT HX LIG/TRNSXJ FLP TUBE ABDL/VAG APPR UNI/BI 1991 Tubal ligation PAST SURGICAL HISTORY OF 1997 tubal reversal PAST SURGICAL HISTORY OF 02/17/2020 Eye Surgery Closed angle Glaucoma Family History FAMILY HISTORY Problem Relation Age of Onset Cancer Father colon, esophagus, stomach, abdomen None Mother No Known Problems Sister Alcohol/Drug Brother No Known Problems Brother No Known Problems Son No Known Problems Son No Known Problems Son Cancer Maternal Grandmother Lymph node Diabetes Maternal Grandfather type 2 other (Dementia) Paternal Grandmother Colon Cancer Colon Cancer Paternal Grandfather Patient Allergies ALLERGIES Allergen Reactions Betadine [Povidone-* Intolerance Delayed onset pruritic rash, most likely irritant contact dermatitis Chlorhexidine Gluco* Rash Delayed onset pruritic rash, most likely irritant contact dermatitis Current Medications Current Outpatient Medications on File Prior to Visit Medication Sig Lactobac no.41/Bifidobact no.7 (PROBIOTIC-10 ORAL) Take by mouth. MV-Min-Vit [id number] (AIRBORNE, LYSINE HCL,) 1,000-50 mg tbef Take by mouth. metoprolol succinate ER (TOPROL XL) 25 mg 24 hr tablet Take 1 tablet by mouth daily in the late morning. At bedtime for hypertension cyclobenzaprine (FLEXERIL) 10 mg tablet Take 1 tablet by mouth at bedtime as needed for muscle spasm or pain. predniSONE (DELTASONE) 20 mg tablet Take 1 tablet by mouth once daily. In the morning cyanocobalamin (VITAMIN B-12) 1,000 mcg tab Take 1,000 mcg by mouth once daily. fluticasone (FLONASE) 50 mcg/actuation nasal spray Use 2 Sprays in each nostril once daily. Rinse mouth after use. buPROPion (WELLBUTRIN) 75 mg tablet Take 1 tablet by mouth twice daily. Ceramides 1,3,6-11 (CERAVE) lotn Apply to affected area. MULTI-VITAMIN ORAL Take by mouth. cholecalciferol (VITAMIN D-3) 5,000 unit tab Take 5,000 Units by mouth once daily. No current facility-administered medications on file prior to visit. Social History Social History Tobacco Use Smoking status: Former Smoker Packs/day: 2.00 Years: 20.00 Pack years: 40.00 Types: Cigarettes Quit date: 1996 Years since quittin.2 Smokeless tobacco: Never Used Substance Use Topics Alcohol use: No Drug use: No Review of Symptoms GENERAL: No weight loss, malaise or fevers. HEENT: See HPI No nasal discharge No ear popping or ear discharge NECK: See HPI RESPIRATORY: Negative for cough, dyspnea or shortness of breath CARDIOVASCULAR: Negative for chest pain GI: No nausea, vomiting, or diarrhea. MUSCULOSKELETAL: Negative for generalized joint pain SKIN: Negative for rash or itching EXAM: BP 118/66 Pulse 80 Resp 14 Wt 89.8 kg (198 lb) LMP 10/20/2016 SpO2 98% BMI 31.96 kg/m General Appearance: Well appearing, alert, in no acute distress, well-hydrated, well nourished. Obese Skin: Skin color, texture, turgor normal Head: Normocephalic, no masses, lesions Eyes: Anicteric sclera. No redness or drainage. Ears: External ears normal, TM's clear bilaterally, adequate light reflex Nose/Sinuses: Nares normal, septum midline, mucosa normal, no drainage or sinus tenderness. Oropharynx: Lips, mucosa, and tongue normal, teeth and gums normal, oropharynx normal. Neck: Supple, no mass or lumps. Thyroid: Right-sided thyroid enlargement. Thyroid tenderness. No mass or nodule. Lymph Nodes: No cervical, supraclavicular, pre/post-auricular, or submandibular lymphadenopathy Lungs: Lungs clear to auscultation. No wheezing, rhonchi, rales. Heart: RRR without murmur, gallop, or rubs. No ectopy. Extremities: No deformities, edema, skin discoloration. Pulses: 2+ at radial. Psych: Attitude - cooperative, easily engaged in conversation Appearance - normal, hygiene and grooming appropriate Affect - euthymic, normal mood Mental status: Alert, attentive. Speech is clear and fluent with good repetition, comprehension Coordination: There are no abnormal or extraneous movements. Gait/Stance: Posture is normal. Gait is steady with normal steps Health Maintenance List HIV SCREENING Never done DTAP,TDAP,TD(2 - Td or Tdap) due on 01/30/2022 DEPRESSION SCREENING due on 02/09/2022 MAMMOGRAM due on 08/06/2022 ANNUAL PCP TEAM CHRONIC DISEASE VISIT due on 10/11/2022 BP CONTROLLED (<130/80) due on 10/11/2022 DIABETES SCREEN due on 10/05/2024 COLORECTAL CANCER SCREENING due on 11/23/2025 PAP TESTING due on 04/14/2026 HPV TESTING due on 04/14/2026 LIPID SCREEN due on 10/05/2026 INFLUENZA Completed HEPATITIS C SCREENING Completed SHINGRIX VACCINE Completed COVID-19 VACCINE Completed MENINGOCOCCAL CONJUGATE Aged Out Data reviewed Last 5 Encounter BP Readings: Date: BP: 10/11/2021 110/70 08/20/2021 112/88 06/16/2021 120/80 04/14/2021 120/60 03/02/2021 124/82 BMI Readings from Last 5 Encounters: 11/26/21 : 31.96 kg/m 10/11/21 : 31.47 kg/m 08/20/21 : 33.28 kg/m 06/16/21 : 33.78 kg/m 04/14/21 : 35.28 kg/m Last 5 Encounter Wt Readings: Date: Wt: 10/11/2021 88.5 kg (195 lb) 08/20/2021 90.7 kg (200 lb) 06/16/2021 92.1 kg (203 lb) 04/14/2021 96.2 kg (212 lb) 03/02/2021 100.5 kg (221 lb 9.6 oz) Medication and allergy list reviewed, reconciled and updated 11/26/2021 ASSESSMENT/PLAN: 1. Thyroid enlarged - ICD9: 240.9, ICD10: E04.9 (primary diagnosis) MDM: Unclear etiology. Subacute thyroiditis versus Michelle's versus dysphagia versus GERD Clinically stable. Exam unremarkable beyond mild enlargement on the right side of her thyroid along with tenderness of the thyroid. No nodule or mass identified during exam. Plan: Ensure she drinks plenty of water when she is eating foods and swallowing pills. Thyroid ultrasound Thyroid labs Follow-up after work-up completed Consider endocrinology consultation pending diagnostics - US THYROID/PARATHYROID - THYROID PEROXIDASE ANTIBODY BLOOD - THYROGLOBULIN AB - T4 FREE/FREE THYROX - TSH BLD - T3 BLD - PTH INTACT BLD - CBC + DIFF 2. Difficulty swallowing pills - ICD9: 787.99, ICD10: R19.8 Plan as above - US THYROID/PARATHYROID - THYROID PEROXIDASE ANTIBODY BLOOD - THYROGLOBULIN AB - T4 FREE/FREE THYROX - TSH BLD - T3 BLD - PTH INTACT BLD - CBC + DIFF 3. Obesity, Class I, BMI 30-34.9 - ICD9: 278.00, ICD10: E66.9 Chronic and stable weight Recommend regular physical activity, nutrition and healthy eating habits. Consume a variety of foods every day focusing on fruits, vegetables and lean meats). Eat foods low in fat, saturated fat and cholesterol. Eat a limited amount of salt and sodium. Drink adequate amounts of water and limit sugary drinks. Exercise portion control in meal selection. Establish a mindset of a wellness approach to health. Brendan Avalos APRN.DUARTE CRONIN This note was completed with [employer] dictation software. Note was reviewed for accuracy. There may be minor misspellings or grammar miscues with [employer] Dict[employer]. I spent a total of 22 minutes on the date of the service which included preparing to see the patient, [id number] patient care, completing clinical documentation, performing a medically appropriate examination, counseling and educating the patient/family/caregiver and ordering medications, tests, or procedures. [place] [address] documented in this encounter [facility] documented as of this encounter (statuses as of 11/26/2021) [facility]08-24-2012 History of Past illness Narrative* Problem Noted Date Resolved Date Pain in joint, pelvic region and thigh 2 10/09/2012 Fistula, anal 06/07/2011 10/09/2012 Abdominal pain, unspecified site 11/16/2009 documented as of this encounter (statuses as of 12/05/2021) [facility]08-24-2012 History of Past illness Narrative* Problem Noted Date Resolved Date Pain in joint, pelvic region and thigh 2 10/09/2012 Fistula, anal 06/07/2011 10/09/2012 Abdominal pain, unspecified site 11/16/2009 documented as of this encounter (statuses as of 12/07/2021) [facility]08-24-2012 History of Past illness Narrative* Problem Noted Date Resolved Date Pain in joint, pelvic region and thigh 2 10/09/2012 Fistula, anal 06/07/2011 10/09/2012 Abdominal pain, unspecified site 11/16/2009 documented as of this encounter (statuses as of 12/10/2021) [address] History of Past illness Narrative* Problem Noted Date Resolved Date Pain in joint, pelvic region and thigh 2 10/09/2012 Fistula, anal 06/07/2011 10/09/2012 Abdominal pain, unspecified site 11/16/2009 documented as of this encounter (statuses as of 12/14/2021) [place] [address] History of Past illness Narrative* Problem Noted Date Resolved Date Pain in joint, pelvic region and thigh 2 10/09/2012 Fistula, anal 06/07/2011 10/09/2012 Abdominal pain, unspecified site 11/16/2009 documented as of this encounter (statuses as of 12/21/2021) [place] [address] History of Past illness Narrative* Problem Noted Date Resolved Date Pain in joint, pelvic region and thigh 2 10/09/2012 Fistula, anal 06/07/2011 10/09/2012 Abdominal pain, unspecified site 11/16/2009 documented as of this encounter (statuses as of 01/03/2022) [address] History of Past illness Narrative* Problem Noted Date Resolved Date Pain in joint, pelvic region and thigh 2 10/09/2012 Fistula, anal 06/07/2011 10/09/2012 Abdominal pain, unspecified site 11/16/2009 documented as of this encounter (statuses as of 01/18/2022) [place] [address]2012 History of Past illness Narrative* Problem Noted Date Resolved Date Pain in joint, pelvic region and thigh 2 10/09/2012 Fistula, anal 06/07/2011 10/09/2012 Abdominal pain, unspecified site 11/16/2009 documented as of this encounter (statuses as of 06/21/2022) [place] [address] History of Past illness Narrative* Problem Noted Date Resolved Date Pain in joint, pelvic region and thigh 2 10/09/2012 Fistula, anal 06/07/2011 10/09/2012 Abdominal pain, unspecified site 11/16/2009 documented as of this encounter (statuses as of 07/07/2022) [address]24-2012 History of Past illness Narrative* Problem Noted Date Resolved Date Pain in joint, pelvic region and thigh 2 10/09/2012 Fistula, anal 06/07/2011 10/09/2012 Abdominal pain, unspecified site 11/16/2009 documented as of this encounter (statuses as of 09/08/2022) [address]24-2012 History of Past illness Narrative* Problem Noted Date Resolved Date Pain in joint, pelvic region and thigh 2 10/09/2012 Fistula, anal 06/07/2011 10/09/2012 Abdominal pain, unspecified site 11/16/2009 documented as of this encounter (statuses as of 09/13/2022) [address]24-2012 History of Past illness Narrative* Problem Noted Date Resolved Date Pain in joint, pelvic region and thigh 2 10/09/2012 Fistula, anal 06/07/2011 10/09/2012 Abdominal pain, unspecified site 11/16/2009 documented as of this encounter (statuses as of 10/21/2022) [address]24-2012 History of Past illness Narrative* Problem Noted Date Resolved Date Pain in joint, pelvic region and thigh 2 10/09/2012 Fistula, anal 06/07/2011 10/09/2012 Abdominal pain, unspecified site 11/16/2009 documented as of this encounter (statuses as of 10/26/2022) [address]24-2012 History of Past illness Narrative* Problem Noted Date Resolved Date Pain in joint, pelvic region and thigh 2 10/09/2012 Fistula, anal 06/07/2011 10/09/2012 Abdominal pain, unspecified site 11/16/2009 documented as of this encounter (statuses as of 10/27/2022) [address]24-2012 History of Past illness Narrative* Problem Noted Date Resolved Date Pain in joint, pelvic region and thigh 2 10/09/2012 Fistula, anal 06/07/2011 10/09/2012 Abdominal pain, unspecified site 11/16/2009 documented as of this encounter (statuses as of 11/03/2022) [address]24-2012 History of Past illness Narrative* Problem Noted Date Resolved Date Pain in joint, pelvic region and thigh 2 10/09/2012 Fistula, anal 06/07/2011 10/09/2012 Abdominal pain, unspecified site 11/16/2009 documented as of this encounter (statuses as of 11/14/2022) [facility]08-24-2012 History of Past illness Narrative* Problem Noted Date Resolved Date Pain in joint, pelvic region and thigh 2 10/09/2012 Fistula, anal 06/07/2011 10/09/2012 Abdominal pain, unspecified site 11/16/2009 documented as of this encounter (statuses as of 11/14/2022) [facility]08-24-2012 History of Past illness Narrative* Problem Noted Date Resolved Date Pain in joint, pelvic region and thigh 2 10/09/2012 Fistula, anal 06/07/2011 10/09/2012 Abdominal pain, unspecified site 11/16/2009 documented as of this encounter (statuses as of 11/16/2022) [facility]08-24-2012 History of Past illness Narrative* Problem Noted Date Resolved Date Pain in joint, pelvic region and thigh 2 10/09/2012 Fistula, anal 06/07/2011 10/09/2012 Abdominal pain, unspecified site 11/16/2009 documented as of this encounter (statuses as of 12/22/2022) [facility]08-24-2012 History of Past illness Narrative* Problem Noted Date Resolved Date Pain in joint, pelvic region and thigh 2 10/09/2012 Fistula, anal 06/07/2011 10/09/2012 Abdominal pain, unspecified site 11/16/2009 documented as of this encounter (statuses as of 01/11/2023) [facility]08-24-2012 History of Past illness Narrative* Problem Noted Date Resolved Date Pain in joint, pelvic region and thigh 2 10/09/2012 Fistula, anal 06/07/2011 10/09/2012 Abdominal pain, unspecified site 11/16/2009 documented as of this encounter (statuses as of 01/14/2023) [facility]08-24-2012 History of Past illness Narrative* Problem Noted Date Diagnosed Date Resolved Date Pain in joint, pelvic region and thigh 04/27/2012 10/09/2012 Fistula, anal 06/07/2011 10/09/2012 Abdominal pain, unspecified site 11/16/2009 documented as of this encounter (statuses as of 03/17/2023) [address]24-2012 History of Past illness Narrative* Problem Noted Date Diagnosed Date Resolved Date Pain in joint, pelvic region and thigh 04/27/2012 10/09/2012 Fistula, anal 06/07/2011 10/09/2012 Abdominal pain, unspecified site 11/16/2009 documented as of this encounter (statuses as of 04/18/2023) [address]24-2012 History of Past illness Narrative* Problem Noted Date Diagnosed Date Resolved Date Pain in joint, pelvic region and thigh 04/27/2012 10/09/2012 Fistula, anal 06/07/2011 10/09/2012 Abdominal pain, unspecified site 11/16/2009 documented as of this encounter (statuses as of 05/18/2023) [address]24-2012 History of Past illness Narrative* Problem Noted Date Diagnosed Date Resolved Date Pain in joint, pelvic region and thigh 04/27/2012 10/09/2012 Fistula, anal 06/07/2011 10/09/2012 Abdominal pain, unspecified site 11/16/2009 documented as of this encounter (statuses as of 05/18/2023) [address]24-2012 History of Past illness Narrative* Problem Noted Date Diagnosed Date Resolved Date Pain in joint, pelvic region and thigh 04/27/2012 10/09/2012 Fistula, anal 06/07/2011 10/09/2012 Abdominal pain, unspecified site 11/16/2009 documented as of this encounter (statuses as of 05/24/2023) [address]24-2012 History of Past illness Narrative* Problem Noted Date Diagnosed Date Resolved Date Pain in joint, pelvic region and thigh 04/27/2012 10/09/2012 Fistula, anal 06/07/2011 10/09/2012 Abdominal pain, unspecified site 11/16/2009 documented as of this encounter (statuses as of 06/19/2023) [address]24-2012 History of Past illness Narrative* Problem Noted Date Diagnosed Date Resolved Date Pain in joint, pelvic region and thigh 04/27/2012 10/09/2012 Fistula, anal 06/07/2011 10/09/2012 Abdominal pain, unspecified site 11/16/2009 documented as of this encounter (statuses as of 07/09/2023) [address]24-2012 History of Past illness Narrative* Problem Noted Date Diagnosed Date Resolved Date Pain in joint, pelvic region and thigh 04/27/2012 10/09/2012 Fistula, anal 06/07/2011 10/09/2012 Abdominal pain, unspecified site 11/16/2009 documented as of this encounter (statuses as of 07/09/2023) [address] History of Past illness Narrative* Problem Noted Date Diagnosed Date Resolved Date Pain in joint, pelvic region and thigh 04/27/2012 10/09/2012 Fistula, anal 06/07/2011 10/09/2012 Abdominal pain, unspecified site 11/16/2009 documented as of this encounter (statuses as of 07/24/2023) [address]24-2012 History of Past illness Narrative* Problem Noted Date Diagnosed Date Resolved Date Pain in joint, pelvic region and thigh 04/27/2012 10/09/2012 Fistula, anal 06/07/2011 10/09/2012 Abdominal pain, unspecified site 11/16/2009 documented as of this encounter (statuses as of 07/26/2023) [address]24-2012 History of Past illness Narrative* Problem Noted Date Diagnosed Date Resolved Date Pain in joint, pelvic region and thigh 04/27/2012 10/09/2012 Fistula, anal 06/07/2011 10/09/2012 Abdominal pain, unspecified site 11/16/2009 documented as of this encounter (statuses as of 08/18/2023) [address]24-2012 History of Past illness Narrative* Problem Noted Date Diagnosed Date Resolved Date Pain in joint, pelvic region and thigh 04/27/2012 10/09/2012 Fistula, anal 06/07/2011 10/09/2012 Abdominal pain, unspecified site 11/16/2009 documented as of this encounter (statuses as of 08/19/2023) [facility] Diagnosis Thyroid enlarged- Primary Goiter, unspecified Difficulty swallowing pills Other symptoms involving digestive system Obesity, Class I, BMI 30-34.9 Obesity, unspecified [facility] Diagnosis Abnormal ultrasound of thyroid gland- Primary Nonspecific abnormal results of thyroid function study Globus sensation Gastrointestinal malfunction arising from mental factors [facility] Diagnosis Right thyroid nodule- Primary Nontoxic uninodular goiter [facility] Diagnosis Abnormal ultrasound of thyroid gland- Primary Nonspecific abnormal results of thyroid function study documented in this encounter [facility] note* Diagnosis Right thyroid nodule- Primary Nontoxic uninodular goiter documented in this encounter [facility] note* Diagnosis Multiple benign nevi- Primary Benign neoplasm of skin, site unspecified Epps angioma Nevus, non-neoplastic Seborrheic keratosis Other seborrheic keratosis Lentigines Other dyschromia documented in this encounter [facility] note* Diagnosis Wellness examination- Primary Hypertension, essential Unspecified essential hypertension Encounter for immunization Need for other specified prophylactic vaccination against single bacterial disease Thyroid enlarged Goiter, unspecified Right thyroid nodule Nontoxic uninodular goiter Obesity, Class I, BMI 30-34.9 Obesity, unspecified Dyslipidemia Other and unspecified hyperlipidemia Vitamin D deficiency Unspecified vitamin D deficiency Tremor Abnormal involuntary movements Dupuytren contracture Contracture of palmar fascia Bowel habit changes Other symptoms involving digestive system documented in this encounter [facility] note* Diagnosis Dupuytren contracture- Primary Contracture of palmar fascia documented in this encounter [facility] note* Diagnosis Abnormality of left breast on screening mammogram- Primary documented in this encounter [facility] note* Diagnosis Sore throat- Primary Acute pharyngitis Viral URI with cough Acute upper respiratory infections of unspecified site documented in this encounter [facility] note* Diagnosis Sore throat- Primary Acute pharyngitis Rhinosinusitis Unspecified sinusitis (chronic) documented in this encounter [facility] note* Diagnosis Dupuytren's contracture of left hand Trigger index finger documented in this encounter [facility]* Diagnosis Subclinical hypothyroidism Other specified acquired hypothyroidism documented in this encounter [facility] note* Diagnosis Acute URI- Primary Acute upper respiratory infections of unspecified site documented in this encounter [facility] note* Diagnosis Palpitations- Primary Tachycardia Tachycardia, unspecified Other chest pain Mild tricuspid regurgitation by prior echocardiogram Diseases of tricuspid valve BORDEN (dyspnea on exertion) Other dyspnea and respiratory abnormality documented in this encounter [facility] note* Diagnosis Precordial pain- Primary Palpitations [facility] Diagnosis Thyroid enlarged Goiter, unspecified Right thyroid nodule Nontoxic uninodular goiter [facility] Diagnosis Encounter for screening mammogram for breast cancer documented in this encounter 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 block documented in this encounter [facility] for referral (narrative)* Diagnostic Procedure Only (Routine) - Authorized Specialty Diagnoses / Procedures Referred By Contac t Referred To Contact [facility] Diagnoses Thyroid enlarged Difficulty swallowing pills Procedures US THYROID/PARATHYROID US SOFT TISSUE HEAD & NECK REAL TIME IMGE Brendan Lopez APRN.CNP, DNP [address] [place] [address] [facility] Imaging Referral ID Status Reason Start Date Expiration Date Visits Requested Visits Authorized [id number] Authorized Auto-Generat ed Referral 11/30/2021 12/26/2022 1 1 [facility] for referral (narrative)* Diagnostic Procedure Only (Routine) - Pending Review Specialty Diagnoses / Procedures Referred By Contac t Referred To Contact [facility] IMAG[facility] Diagnoses Right thyroid nodule Procedures US THYROID/PARATHYROID US SOFT TISSUE HEAD & NECK REAL TIME IMGE Karla Florence MD [address] [place] [address] Us Imaging Referral ID Status Reason Start Date Expiration Date Visits Requested Visits Authorized [id number] Pending Review Auto-Generat ed Referral 12/03/2022 01/20/2023 1 1 [facility] for referral (narrative)* Diagnostic Procedure Only (Routine) - Authorized Specialty Diagnoses / Procedures Referred By Contac t Referred To Contact [facility] IMAG[facility] Diagnoses Right thyroid nodule Procedures US THYROID/PARATHYROID US SOFT TISSUE HEAD & NECK REAL TIME IMGE Brendan Lopez APRN.CNP, DNP [address] [place] [address] Us Imaging Referral ID Status Reason Start Date Expiration Date Visits Requested Visits Authorized [id number] Authorized Auto-Generat ed Referral 07/06/2022 02/02/2023 1 1 [facility] for referral (narrative)* Diagnostic Procedure Only (Routine) - Authorized Specialty Diagnoses / Procedures Referred By Contac t Referred To Contact [facility] IMAGING Diagnoses Thyroid enlarged Right thyroid nodule Procedures US THYROID/PARATHYROID US SOFT TISSUE HEAD & NECK REAL TIME IMGE Chrissie Lopez APRN.CNP [address] [place] [address] Us Imaging Referral ID Status Reason Start Date Expiration Date Visits Requested Visits Authorized [id number] Authorized Auto-Generat ed Referral 10/21/2022 11/20/2023 1 1 [facility] for referral (narrative)* Diagnostic Procedure Only (Routine) - Pending Review Specialty Diagnoses / Procedures Referred By Prabhakar t Referred To Contact [facility] Diagnoses Abnormality of left breast on screening mammogram Procedures US BREAST LTD LT US BREAST UNI REAL TIME WITH IMAGE LIMITED Elvin Wilson DO [address] [place] [address] [facility] [address] [place] [address] Referral ID Status Reason Start Date Expiration Date Visits Requested Visits Authorized [id number] Pending Review Auto-Generat ed Referral 11/14/2022 12/14/2023 1 1 * Diagnostic Procedure Only (Routine) - Authorized Specialty Diagnoses / Procedures Referred By Contac t Referred To Contact [facility] Diagnoses Abnormality of left breast on screening mammogram Procedures RENU DIAGNOSTIC LT DIAGNOSTIC MAMMOGRAPHY COMPUTER-AIDED DETCJ UNI Elvin Wilson DO [address] [place] [address] [facility] [address] [place] [address] Referral ID Status Reason Start Date Expiration Date Visits Requested Visits Authorized [id number] Authorized Auto-Generat ed Referral 11/14/2022 12/14/2023 1 1 [facility] for referral (narrative)* Outpatient Procedure (Routine) - Authorized Specialty Diagnoses / Procedures Referred By Contac t Referred To Contact [facility] [place] Diagnoses Palpitations Tachycardia Other chest pain Mild tricuspid regurgitation by prior echocardiogram BORDEN (dyspnea on exertion) Procedures ECHO ECHO TTHRC R-T 2D W/WOM-MODE COMPL SPEC&COLR D Elvin Wilson DO [address] [place] [address] [address] Referral ID Status Reason Start Date Expiration Date Visits Requested Visits Authorized [id number] Authorized Auto-Generat ed Referral 05/12/2023 05/11/2024 1 1 * Outpatient Procedure (Routine) - Authorized Specialty Diagnoses / Procedures Referred By Contac t Referred To Contact [facility] Diagnoses Palpitations Tachycardia Other chest pain Mild tricuspid regurgitation by prior echocardiogram BRODEN (dyspnea on exertion) Procedures ECG COMPLETE ECG ROUTINE ECG W/LEAST 12 LDS W/I&R Elvin Wilson DO [address] [place] [address] [address] Referral ID Status Reason Start Date Expiration Date Visits Requested Visits Authorized [id number] Authorized Auto-Generat ed Referral 05/12/2023 05/11/2024 1 1 [facility] for referral (narrative)* Diagnostic Procedure Only (Routine) - Closed Specialty Diagnoses / Procedures Referred By Contac t Referred To Contact US IMAGING Diagnoses Thyroid enlarged Right thyroid nodule Procedures US THYROID/PARATHYROID US SOFT TISSUE HEAD & NECK REAL TIME IMGE Chrissie Lopez, BIOLOGY TUTOR.NCQA SPECIALIST [address] [place] [address] [facility] [address] Referral ID Status Reason Start Date Expiration Date V isits Requested Visits Authorized [id number] Closed Auto-Generate d Referral 10/21/2022 11/20/2023 1 1 [facility] for referral (narrative)* Diagnostic Procedure Only (Routine) - Closed Specialty Diagnoses / Procedures Referred By Prabhakar t Referred To Contact [facility] Diagnoses Encounter for screening mammogram for breast cancer Procedures RENU SCREENING SCREENING MAMMOGRAPHY BI 2-VIEW BREAST INC CAD Elvin Wilson DO [address] [place] [address] Imaging [address] [place] [address] Referral ID Status Reason Start Date Expiration Date V isits Requested Visits Authorized [id number] Closed Auto-Generate d Referral 09/07/2022 10/07/2023 1 1 [facility] for referral (narrative)* Outpatient Procedure (Routine) - Pending Review Specialty Diagnoses / Procedures Referred By Prabhakar lord Referred To [facility] Diagnoses Heart block AV second degree Procedures ECG COMPLETE ECG ROUTINE ECG W/LEAST 12 LDS W/I&R Rod Metz [place] [id number] [place] [address] [facility] [place] [address] [place] [address] Referral ID Status Reason Start Date Expiration Date Visits Requested Visits Authorized [id number] Pending Review Auto-Generat ed Referral 3 07/20/2024 1 1 [facility] for visit Narrative* Diagnostic Procedure Only (Routine) - Closed Specialty Diagnoses / Procedures Referred By Prabhakar lord Referred To Contact [facility] Diagnoses Encounter for screening mammogram for breast cancer Procedures RENU SCREENING SCREENING MAMMOGRAPHY BI 2-VIEW BREAST INC CAD Elvin Wilson DO [address] [place] [address] [facility] [address] [place] [address] Referral ID Status Reason Start Date Expiration Date V isits Requested Visits Authorized [id number] Closed Auto-Generate d Referral 09/07/2022 10/07/2023 1 1 [facility] Advance Directives No Advanced Directives Records FoundDocuments on File Type Date 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) Advance Directive(s) 11/23/2020 10:58 AM Advance Directive(s) 10/21/2020 12:25 PM Advance Directive(s) 11/09/2015 8:20 AM Advance Directive(s) 10/29/2015 2:58 PM Documents on File Type Date 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) Advance Directive(s) 11/23/2020 10:58 AM Advance Directive(s) 10/21/2020 12:25 PM Advance Directive(s) 11/09/2015 8:20 AM Advance Directive(s) 10/29/2015 2:58 PM Reason for Referral Specialty Diagnoses / Procedures Referred By Contac t Referred To Contact General Surgery Diagnoses Right thyroid nodule Procedures CONSULT TO GENERAL SURGERY OFFICE/OUTPATIENT [facility] MDM 60-74 MINUTES Brendan Avalos, BIOLOGY TUTOR.NCQA SPECIALIST, DNP [address] [place] [address] Referral ID Status Reason Start Date Expiration Date V isits Requested Visits Authorized [id number] Closed PCP Requested Referral 12/01/2021 12/01/2022 1 1 Specialty Diagnoses / Procedures Referred By Contac t Referred To Contact Orthopedics Diagnoses Dupuytren contracture Procedures CONSULT PANEL TO ORTHOPAEDICS OFFICE/OUTPATIENT [facility] MDM 60-74 MINUTES Chrissie Valdez, BIOLOGY TUTOR.NCQA SPECIALIST [address] [place] [address] Referral ID Status Reason Start Date Expiration Date Visits Requested Visits Authorized [id number] Authorized PCP Requested Referral 10/24/2022 10/24/2023 1 1 Specialty Diagnoses / Procedures Referred By Contac t Referred To Contact XR IMAGING Diagnoses Dupuytren contracture Procedures XR HAND GENERAL 3V PA/LAT/OBL BILATERAL RADEX HAND MINIMUM 3 VIEWS Chrissie Valdez APRN.NCQA SPECIALIST [address] [place] [address] Xr Imaging Referral ID Status Reason Start Date Expiration Date Visits Requested Visits Authorized [id number] Pending Review Auto-Generat ed Referral 10/24/2022 11/23/2023 1 1 Summary Purpose Family History No Family History Records FoundNo Family History Records FoundNo Family History Records Found Health Concerns Infection Onset Date Last Indicated Resolved Time COVID-19 Rule-Out 04/17/2023 04/17/2023 04/17/2023 11:12 PM EDT Infection Onset Date Last Indicated Resolved Time COVID-19 Confirmed 04/17/2023 04/17/2023 Additional Source Comments Source Comments (unrecognize d section and content) In the event this informatio n is protected by the Federal Confidentiality of Alcohol and Drug Abuse Patient Records regulations: The Federal rules restrict any use of the information to criminally investigate or prosecute any alcohol or drug abuse patient.[facility] DublinIn the event this information is protected by the Federal Confidentiality of Alcohol and Drug Abuse Patient Records regulations: The Federal rules restrict any use of the information to criminally investigate or prosecute any alcohol or drug abuse patient.[facility] DublinIn the event this information is protected by the Federal Confidentiality of Alcohol and Drug Abuse Patient Records regulations: The Federal rules restrict any use of the information to criminally investigate or prosecute any alcohol or drug abuse patient.[facility] DublinIn the event this information is protected by the Federal Confidentiality of Alcohol and Drug Abuse Patient Records regulations: The Federal rules restrict any use of the information to criminally investigate or prosecute any alcohol or drug abuse patient.[facility] DublinIn the event this information is protected by the Federal Confidentiality of Alcohol and Drug Abuse Patient Records regulations: The Federal rules restrict any use of the information to criminally investigate or prosecute any alcohol or drug abuse patient.[facility] DublinIn the event this information is protected by the Federal Confidentiality of Alcohol and Drug Abuse Patient Records regulations: The Federal rules restrict any use of the information to criminally investigate or prosecute any alcohol or drug abuse patient.[facility] DublinIn the event this information is protected by the Federal Confidentiality of Alcohol and Drug Abuse Patient Records regulations: The Federal rules restrict any use of the information to criminally investigate or prosecute any alcohol or drug abuse patient.[facility] DublinIn the event this information is protected by the Federal Confidentiality of Alcohol and Drug Abuse Patient Records regulations: The Federal rules restrict any use of the information to criminally investigate or prosecute any alcohol or drug abuse patient.[facility] DublinIn the event this information is protected by the Federal Confidentiality of Alcohol and Drug Abuse Patient Records regulations: The Federal rules restrict any use of the information to criminally investigate or prosecute any alcohol or drug abuse patient.[facility] DublinIn the event this information is protected by the Federal Confidentiality of Alcohol and Drug Abuse Patient Records regulations: The Federal rules restrict any use of the information to criminally investigate or prosecute any alcohol or drug abuse patient.[facility] DublinIn the event this information is protected by the Federal Confidentiality of Alcohol and Drug Abuse Patient Records regulations: The Federal rules restrict any use of the information to criminally investigate or prosecute any alcohol or drug abuse patient.[facility] DublinIn the event this information is protected by the Federal Confidentiality of Alcohol and Drug Abuse Patient Records regulations: The Federal rules restrict any use of the information to criminally investigate or prosecute any alcohol or drug abuse patient.[facility] DublinIn the event this information is protected by the Federal Confidentiality of Alcohol and Drug Abuse Patient Records regulations: The Federal rules restrict any use of the information to criminally investigate or prosecute any alcohol or drug abuse patient.[facility] DublinIn the event this information is protected by the Federal Confidentiality of Alcohol and Drug Abuse Patient Records regulations: The Federal rules restrict any use of the information to criminally investigate or prosecute any alcohol or drug abuse patient.[facility] DublinIn the event this information is protected by the Federal Confidentiality of Alcohol and Drug Abuse Patient Records regulations: The Federal rules restrict any use of the information to criminally investigate or prosecute any alcohol or drug abuse patient.[facility] DublinIn the event this information is protected by the Federal Confidentiality of Alcohol and Drug Abuse Patient Records regulations: The Federal rules restrict any use of the information to criminally investigate or prosecute any alcohol or drug abuse patient.[facility] DublinIn the event this information is protected by the Federal Confidentiality of Alcohol and Drug Abuse Patient Records regulations: The Federal rules restrict any use of the information to criminally investigate or prosecute any alcohol or drug abuse patient.[facility] DublinIn the event this information is protected by the Federal Confidentiality of Alcohol and Drug Abuse Patient Records regulations: The Federal rules restrict any use of the information to criminally investigate or prosecute any alcohol or drug abuse patient.[facility] DublinIn the event this information is protected by the Federal Confidentiality of Alcohol and Drug Abuse Patient Records regulations: The Federal rules restrict any use of the information to criminally investigate or prosecute any alcohol or drug abuse patient.[facility] DublinIn the event this information is protected by the Federal Confidentiality of Alcohol and Drug Abuse Patient Records regulations: The Federal rules restrict any use of the information to criminally investigate or prosecute any alcohol or drug abuse patient.[facility] DublinIn the event this information is protected by the Federal Confidentiality of Alcohol and Drug Abuse Patient Records regulations: The Federal rules restrict any use of the information to criminally investigate or prosecute any alcohol or drug abuse patient.[facility] DublinIn the event this information is protected by the Federal Confidentiality of Alcohol and Drug Abuse Patient Records regulations: The Federal rules restrict any use of the information to criminally investigate or prosecute any alcohol or drug abuse patient.[facility] DublinIn the event this information is protected by the Federal Confidentiality of Alcohol and Drug Abuse Patient Records regulations: The Federal rules restrict any use of the information to criminally investigate or prosecute any alcohol or drug abuse patient.[facility] DublinIn the event this information is protected by the Federal Confidentiality of Alcohol and Drug Abuse Patient Records regulations: The Federal rules restrict any use of the information to criminally investigate or prosecute any alcohol or drug abuse patient.[facility] DublinIn the event this information is protected by the Federal Confidentiality of Alcohol and Drug Abuse Patient Records regulations: The Federal rules restrict any use of the information to criminally investigate or prosecute any alcohol or drug abuse patient.[facility] DublinIn the event this information is protected by the Federal Confidentiality of Alcohol and Drug Abuse Patient Records regulations: The Federal rules restrict any use of the information to criminally investigate or prosecute any alcohol or drug abuse patient.[facility] DublinIn the event this information is protected by the Federal Confidentiality of Alcohol and Drug Abuse Patient Records regulations: The Federal rules restrict any use of the information to criminally investigate or prosecute any alcohol or drug abuse patient.[facility] DublinIn the event this information is protected by the Federal Confidentiality of Alcohol and Drug Abuse Patient Records regulations: The Federal rules restrict any use of the information to criminally investigate or prosecute any alcohol or drug abuse patient.[facility] DublinIn the event this information is protected by the Federal Confidentiality of Alcohol and Drug Abuse Patient Records regulations: The Federal rules restrict any use of the information to criminally investigate or prosecute any alcohol or drug abuse patient.[facility] DublinIn the event this information is protected by the Federal Confidentiality of Alcohol and Drug Abuse Patient Records regulations: The Federal rules restrict any use of the information to criminally investigate or prosecute any alcohol or drug abuse patient.[facility] DublinIn the event this information is protected by the Federal Confidentiality of Alcohol and Drug Abuse Patient Records regulations: The Federal rules restrict any use of the information to criminally investigate or prosecute any alcohol or drug abuse patient.[facility] DublinIn the event this information is protected by the Federal Confidentiality of Alcohol and Drug Abuse Patient Records regulations: The Federal rules restrict any use of the information to criminally investigate or prosecute any alcohol or drug abuse patient.[facility] DublinIn the event this information is protected by the Federal Confidentiality of Alcohol and Drug Abuse Patient Records regulations: The Federal rules restrict any use of the information to criminally investigate or prosecute any alcohol or drug abuse patient.[facility] DublinIn the event this information is protected by the Federal Confidentiality of Alcohol and Drug Abuse Patient Records regulations: The Federal rules restrict any use of the information to criminally investigate or prosecute any alcohol or drug abuse patient.[facility] DublinIn the event this information is protected by the Federal Confidentiality of Alcohol and Drug Abuse Patient Records regulations: The Federal rules restrict any use of the information to criminally investigate or prosecute any alcohol or drug abuse patient.[facility] DublinIn the event this information is protected by the Federal Confidentiality of Alcohol and Drug Abuse Patient Records regulations: The Federal rules restrict any use of the information to criminally investigate or prosecute any alcohol or drug abuse patient.[facility] DublinIn the event this information is protected by the Federal Confidentiality of Alcohol and Drug Abuse Patient Records regulations: The Federal rules restrict any use of the information to criminally investigate or prosecute any alcohol or drug abuse patient.[facility] Reason for Visit (unrecogniz ed section and content) Reason Comments Consult thyroid nodule Specialty Diagnoses / Procedures Referred By Contac t Referred To Contact General Surgery Diagnoses Right thyroid nodule Procedures CONSULT TO GENERAL SURGERY OFFICE/OUTPATIENT [facility] HIGH MDM 60-74 MINUTES Brendan Avalos, BIOLOGY TUTOR.NCQA SPECIALIST, DNP [address] [place] [address] Referral ID Status Reason Start Date Expiration Date V isits Requested Visits Authorized [id number] Closed PCP Requested Referral 12/01/2021 12/01/2022 1 1 Reason Comments Returning Patient's Call IRB [id number] Reason Comments Results Reason Comments Procedure US Guided Biopsy FNA Thyroid Reason Comments Thyroid Problem Reason Comments Recheck discuss thryroid Reason Comments Covid19 Concern Reason Comments Full Body Skin Check Reason Comments Informed Consent IRB [id number] Reason Comments Physical Reason Comments Results Reason Comments Results Reason Comments Mammogram Result Call Back Reason Comments Nasal Congestion drainage, cough, sor e throat, bodyaches x 3 days Reason Comments Cough With congestion x 1 week. 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 Trupti [facility] Reason Onset Date Comments Refill Request 03/17/2023 Reason Comments Patient Education Assessment Reason Comments Sore Throat Body aches, cough x 3 days Reason Comments Pain left arm Reason Comments Consult Chest Pain Reason Comments Results Monitor results Reason Comments Radiology US Specialty Diagnoses / Procedures Referred By Contac t Referred To Contact US IMAGING Diagnoses Thyroid enlarged Right thyroid nodule Procedures US THYROID/PARATHYROID US SOFT TISSUE HEAD & NECK REAL TIME IMGE Chrissie Lopez, BIOLOGY TUTOR.NCQA SPECIALIST [address] [place] [address] [place] [address] Referral ID Status Reason Start Date Expiration Date V isits Requested Visits Authorized [id number] Closed Auto-Generate d Referral 10/21/2022 11/20/2023 1 1 Reason Comments Cardiology Follow Up - Generic Irregular HR Reason Comments Procedure Reason Comments Med Change Request Care Teams (unrecognized sec tion and content) Jukebox Routeman Relationship Specialty Start Date End Date Elvin Wilson, [address] [place], [place] [id number] PCP - General Family Practice 08/25/17 Jukebox Routeman Relationship Specialty Start Date End Date Elvin Wilson, DO [address] [place] [address] PCP - General Family Practice 08/25/17 Jukebox Routeman Relationship Specialty Start Date End Date Elvin Wilson, DO [address] [place] [address] PCP - General Family Practice 08/25/17 Jukebox Routeman Relationship Specialty Start Date End Date Elvin Wilson, DO [address] [place] [address] PCP - General Family Practice 08/25/17 Jukebox Routeman Relationship Specialty Start Date End Date Elvin Wilson, DO [address] [place] [address] PCP - General Family Practice 08/25/17 Jukebox Routeman Relationship Specialty Start Date End Date Elvin Wilson, DO [address] [place] [address] PCP - General Family Practice 08/25/17 Jukebox Routeman Relationship Specialty Start Date End Date Elvin Wilson, DO [address] [place] [address] PCP - General Family Medicine 08/25/17 Jukebox Routeman Relationship Specialty Start Date End Date Elvin Wilson, DO [address] [place] [address] PCP - General Family Medicine 08/25/17 Jukebox Routeman Relationship Specialty Start Date End Date Elvin Wilson, DO [address] [place] [address] PCP - General Family Medicine 08/25/17 Jukebox Routeman Relationship Specialty Start Date End Date Elvin Wilson, DO [address] [place] [address] PCP - General Family Medicine 08/25/17 Jukebox Routeman Relationship Specialty Start Date End Date Elvin Wilson, DO [address] [facility] [place] [address] PCP - General Family Medicine 08/25/17 Jukebox Routeman Relationship Specialty Start Date End Date Elvin Wilson, DO [address] [facility] [place] [address] PCP - General Family Medicine 08/25/17 Jukebox Routeman Relationship Specialty Start Date End Date Elvin Wilson, DO [address] [facility] [place] [address] PCP - General Family Medicine 08/25/17 Jukebox Routeman Relationship Specialty Start Date End Date Elvin Wilson, DO [address] [place] [address] PCP - General Family Medicine 08/25/17 Jukebox Routeman Relationship Specialty Start Date End Date Elvin Wilson, DO [address] [facility] [place] [address] PCP - General Family Medicine 08/25/17 Jukebox Routeman Relationship Specialty Start Date End Date Elvin Wilson, DO [address] [facility] [place] [address] PCP - General Family Medicine 08/25/17 Jukebox Routeman Relationship Specialty Start Date End Date Elvin Wilson, DO [address] [facility] [place] [address] PCP - General Family Medicine 08/25/17 Jukebox Routeman Relationship Specialty Start Date End Date Karo Lyles PA [address] [place] [address] PCP - General Physician Telecom Field Technician 02/02/23 Jukebox Routeman Relationship Specialty Start Date End Date Elvin Wilson DO [address] [facility] [place] [address] PCP - General Family Medicine 08/25/17 Jukebox Routeman Relationship Specialty Start Date End Date Elvin Wilson, [address] [facility] [place] [address] PCP - General Family Medicine 08/25/17 Jukebox Routeman Relationship Specialty Start Date End Date Elvin Wilson, [address] [place] [address] PCP - General Family Medicine 08/25/17 Jukebox Routeman Relationship Specialty Start Date End Date Elvin Wilson, [address] [place] [address] PCP - General Family Medicine 08/25/17 Jukebox Routeman Relationship Specialty Start Date End Date Elvin Wilson, [address] [place] [address] PCP - General Family Medicine 08/25/17 Jukebox Routeman Relationship Specialty Start Date End Date Elvin Wilson, [address] [place] [address] PCP - General Family Medicine 08/25/17 Jukebox Routeman Relationship Specialty Start Date End Date Elvin Wilson, [address] [place] [address] PCP - General Family Medicine 08/25/17 Jukebox Routeman Relationship Specialty Start Date End Date Elvin Wilson, [address] [place] [address] PCP - General Family Medicine 08/25/17 Jukebox Routeman Relationship Specialty Start Date End Date Elvin Wilson, DO [address] [place] [address] PCP - General Family Medicine 08/25/17 Jukebox Routeman Relationship Specialty Start Date End Date Wilson Elvin [place], DO [address] [place] [address] PCP - General Family Medicine 08/25/17 Jukebox Routeman Relationship Specialty Start Date End Date Elvin Wilson, DO [address] [place] [address] PCP - General Family Medicine 08/25/17 INFORMATION SOURCE (unrecogn ized section and content) DATE CREATED AUTHOR AUTHOR'S ORGANIZ ATION 08/24/2023 [facility] DATE CREATED AUTHOR AUTHOR'S ORGANIZ ATION 09/02/2023 [facility] FOR RECORDS PERTAINING TO PATIENTS WHO ARE OR HAVE BEEN ENROLLED IN A CHEMICAL DEPENDENCY/SUBSTANCEABUSE PROGRAM, SOME INFORMATION MAY BE OMITTED. This clinical summary was aggregated from multiple sources. Caution should be exercised in using it in the provision of clinical care. This summary normalizes information from multiple sources, and as a consequence, information in this document may materially change the coding, format and clinical context of patient data. In addition, data may be omitted in some cases. CLINICAL DECISIONS SHOULD BE BASED ON THE PRIMARY CLINICAL RECORDS. [employer] provides no warranty or guarantee of the accuracy or completeness of information in this document.
== END 2023-09-03 02:59 | disposition home or self-care (01) ==
PROVIDERS: Emergency Provider Emergency Medicine; PCP Student in an Organized Health Care Education/Training Program; Visit Provider Emergency Medicine
DX: I10 Essential (primary) hypertension (principal); E03.9 Hypothyroidism, unspecified; Z87.891 Personal history of nicotine dependence; Z79.899 Other long term (current) drug therapy; Z79.890 Hormone replacement therapy
CPT/HCPCS: 87631; 99282

== ENCOUNTER 2024-05-08 11:30 | Outpatient (RCR) | payer OTHER, SELFPAY ==
--- NOTE | 2024-03-19 14:51 | HP.PTEVAL ---
Patient's Visit Information Visit Information Visit Information: HIPOLITO FERRARA is a 63 year old F referred to Physical Therapy by JEREMY Nguyen with a diagnosis of STRESS URINARY INCONTINENCE. Date of Evaluation: 03/19/24 Physical Therapist: Essie Barrios PT, Cert MDT Visit Plan Frequency: 1x/Week Duration: 2-4 Months Plan: PF THERAPY FOR STRENGTHENING, LENGTHENING/RELAXATION AND ENDURANCE TRAINING. URINARY URGE AND FREQUENCY EDUCATION. HEALTHY BLADDER HABIT EDUCATION. TRAINING IN COORDINATION OF PELVIC FLOOR MUSCULATURE WITH HIP AND CORE (TRANSVERSE ABDOMINUS) MUSCULATURE. CORE STRENGTHENING. BIRDIE LE ROM, STRETCHING AND STRENGTHENING. TRAINING IN ABDOMINAL CAVITY PRESSURE MGMT WITH ADL'S. Subjective Subjective: Work/Leisure: OFFICE WORK FOR [employer] Disability: NO Present symptoms: URINARY LEAKAGE. PATIENT DENIES BACK PAIN. Present since: 2018 Pain Scale: N/A - PATIENT DENIES PAIN Is it getting better, worse or staying the same: GETTING BETTER Commenced as a result of: NO APPARENT REASON Symptoms at onset: GUSHING OF URINE WITHOUT WARNING Worse: COUGHING, SNEEZING, LIFTING HEAVY SNEEZING, WAITING TO GO TO THE BATHROOM, TRAVELING, DELAYING IN URINATION, SOMEONE TALKING ABOUT GOING TO THE BATHROOM, DRINKING POP Better: PRESCRIPTION MEDICATION SOLIFENACIN THAT WAS STARTED ABOUT 3 WKS AGO Disturbed sleep: GETTING UP TO URINATE 1-2 TIMES AT NIGHT BOTH BEFORE AND AFTER STARTING THE NEW MEDICINE. Previous history/Previous treatment: NO PRIOR TREATMENT FOR URINARY INCONTINENCE. NO HISTORY OF PELVIC TRAUMA. HAS HAD TUBES TIED AND UNTIED. 3 VAGINAL DELIVERIES WITHOUT COMPLICATIONS. Treatment this episode: CURRENT MEDICATION Gait: NORMAL How long can you delay the need to urinate: 10 MIN OR LESS Prolapse (Falling out feeling): NO Frequency of Urination: EVERY 2-3 HOURS Ability to stop urine flow: UNSURE Ability to initiate urine stream: YES Dyspareunia: N/A - NOT SEXUALLY ACTIVE Bowel Incontinence: NO Accidents: NO Unexplained weight loss: NO Imaging: NO PMH/Recent major surgery: CURRENTLY HAVING HEART MONITORED BECAUSE TRYING TO DETERMINE IF NEEDS PACEMAKER, R THR 2018, HTN, HYPOTHYRODISM, ESSENTIAL TREMORS. Objective Objective: Sitting/Standing Posture: INCREASED LORDOSIS. ANTERIOR PELVIC TILT. NO RELEVANT LATERAL SHIFT. ABLE TO PARTIALLY CORRECT. DOES NOT MAINTAIN. Other Observations: INDEP GAIT AND TRANSFERS Sensory deficit: BIRDIE LE LIGHT TOUCH SENSATION GROSSLY INTACT AND SYMMETRICAL ROM deficit: BIRDIE HIP FLEXOR, HS, CALF AND HIP ADDUCTOR TIGHTNESS. L HIP IR TIGHTNESS > ER AND R HIP ER TIGHTNESS > IR. Motor deficit: BIRDIE LE'S GROSSLY 5/5 EXCEPT R HIP 4-/5 AND L HIP 4/5. INTERNAL MANUAL VAGINAL PELVIC FLOOR STRENGTH: 3/5 X 5 SEC X 5 Dural Signs: NEGATIVE BIRDIE LE'S. Lumbar mvmt loss: flex - MIN ext - MIN TO MOD R SG - MOD L SG - MOD PATIENT DENIES PAIN WITH LUMBAR ROM TESTING ALL PLANES. Core strength: POOR Palpation: NO ACUTE TENDERNESS OR TRIGGER POINTS WITH INTERNAL MANUAL VAGINAL PELVIC FLOOR PALPATION FUNCTIONAL SCREEN: Incontinence Impact Questionnaire Score: 13 Urogenital Distress Inventory Score: 10 Goals Goal 1:: DECREASE URINARY LEAKAGE EPISODES TO ONE OR LESS PER DAY Goal Time Frame: 8-12 Weeks Goal 2:: PATIENT WILL SUCCESSFULLY DELAY VOIDING LONG NEEDED WHEN URGENCY OCCURS TO SUCCESSFULLY MAKE IT TO THE BATHROOM. Goal Time Frame: 4-6 Weeks Goal 3:: PATIENT WILL DEMONSTRATE/COMMUNICATE 10 CONSISTENT AND CONSECUTIVE 10 SECOND PELVIC FLOOR MUSCLE CONTRACTIONS TO DEMONSTRATE IMPROVED PELVIC FLOOR ENDURANCE. Goal Time Frame: 8-12 Weeks Goal 4:: DEVELOP HEALTHY FLUID INTAKE HABITS WITH FLUID INTAKE OF ? BODY WEIGHT IN OUNCES PER DAY AND 2/3 BEING WATER. Goal Time Frame: 4-6 Weeks Goal 5:: NORMALIZE VOIDING FREQUENCEY TO EVERY 3-4 HOURS. Goal Time Frame: 2-4 Weeks Goal 6:: PATIENT WILL BE INDEP WITH A HEP/HOME INSTRUCTIONS FOR CONTINUED IMPROVEMENT ONCE FORMAL PHYSICAL THERAPY CONCLUDES. Goal Time Frame: 8-12 Weeks Rehabilitation Potential Physical Therapy Diagnosis: PELVIC FLOOR, CORE AND POSTURAL WEAKNESS WITH SYMPTOMS OF URINARY STRESS AND URGE INCONTINENCE. Rehabilitation Potential: Good Anticipated Interventions Patient/Client Instruction: Educate patient on: Condition, Plan of Care and Risk Factors For the Purpose of:: To improve self management Therapeutic Exercise to Include: Strength training, Endurance training, Postural training, Flexibilty training and Neuromotor development For the Purpose of:: To improve muscle performance and motor function, To increase flexibility/ROM, To foster healthy habits and To improve self management Text: Thank you for the opportunity to evaluate your patient. For Medicare and Medicare HMO plans, please review the plan of care and approve it. It will need to be FAXED BACK to us at [phone] for Medicare purposes. For Medicare only, by signing this I certify the plan of care. Please let me know if there are questions or concerns regarding this plan of care. Physician Signature: Date:
--- NOTE | 2024-08-29 14:45 | HP.PT.NRP ---
Patient Information Patient Information: HIPOLITO FERRARA was seen in my office for initial evaluation on 03/19/24. The following Plan of Care was established for this patient: POC Established Initial Frequency: 1x/Week Initial Duration: 2-4 Months Anticipated Interventions Patient/Client Instruction: Educate patient on: Condition, Plan of Care and Risk Factors For the Purpose of:: To improve self management Therapeutic Exercise to Include: Strength training, Endurance training, Postural training, Flexibilty training and Neuromotor development For the Purpose of:: To improve muscle performance and motor function, To increase flexibility/ROM, To foster healthy habits and To improve self management Last Seen Last Seen: This patient was last seen in our office 05/08/24. Pertinent comments regarding their Physical therapy will appear below: It has been my pleasure to see this patient for a total of 4 visits. This patient has not returned to Physical Therapy for more visits and is appropriate to return to MD for further follow-up as needed. At this point I will be discontinuing this patient from physical therapy. I would be happy to see this patient again in the future if found appropriate by the physician. Thank you! Essie Barrios, PT, Cert MDT
== END 2024-05-08 19:00 | disposition home or self-care (01) ==
LOC: PT 11:30
PROVIDERS: PCP Student in an Organized Health Care Education/Training Program; Referring Provider Clinical Nurse Specialist Adult Health; Visit Provider Clinical Nurse Specialist Adult Health
DX: N39.3 Stress incontinence (female) (male) (principal)
CPT/HCPCS: 97162; 97530